=== PATIENT | female | born 1960 | race Caucasian/White ===

== ENCOUNTER → 2018-07-21 08:59 | Outpatient (CLI) | payer OTHER, SELFPAY ==
--- NOTE | 2018-07-21 | DI.MG.S_ITS ---
BILATERAL DIGITAL SCREENING MAMMOGRAM 3D/2D WITH CAD: 07/21/2018 CLINICAL: Routine screening. Comparison is made to exams dated: 07/03/2017 mammogram, 06/21/2016 mammogram, and 01/30/2015 mammogram - [facility]. The tissue of both breasts is heterogeneously dense. This may lower the sensitivity of mammography. Current study was also evaluated with a Computer Aided Detection (CAD) system. No significant masses, calcifications, or other findings are seen in either breast. There has been no significant interval change. IMPRESSION: NEGATIVE There is no mammographic evidence of malignancy. A 1 year screening mammogram is recommended. This exam was interpreted at Station ID: [id number]. NOTE: For mammograms, a report in lay terms will be sent to the patient. Approximately 15% of breast malignancies will not be visualized mammographically. In the management of a palpable breast mass, a negative mammogram must not discourage biopsy of a clinically suspicious lesion. Electronically Signed By: Ronak leon/micah:07/21/2018 10:00:33 letter sent: Normal Exam ACR BI-RADS Category 1: Negative 3341F
== END ==
PROVIDERS: PCP Family Medicine; Visit Provider Family Medicine
DX: Z12.31 Encounter for screening mammogram for malignant neoplasm of breast (principal)
CPT/HCPCS: 77063; 77067

== ENCOUNTER → 2018-12-09 10:19 | Outpatient (CLI) | payer OTHER, SELFPAY | PROVIDERS: PCP Family Medicine; Visit Provider Surgery | DX: R19.7 Diarrhea, unspecified (principal); Z87.19 Personal history of other diseases of the digestive system ==

== ENCOUNTER → 2018-12-10 14:06 | Outpatient (CLI) | payer OTHER, SELFPAY ==
[2018-12-10 14:42] LABS: Add Manual Diff / Slide Review NO; Basophils Absolute Auto 100 /uL (0-100); Basophils Percent Auto 0.9 % (0-2); Eosinophils Absolute Auto 100 /uL (0-450); Eosinophils Percent Auto 1.2 % (2-4); Hematocrit 32.9 % (36-46); Hemoglobin 10.5 g/dL (12.0-16.0); Lymphocytes Absolute Auto 3300 /uL (1100-4500); Lymphocytes Percent Auto 41.4 % (25-40); Mean Corpuscular HGB Conc 31.8 % (30-36); Mean Corpuscular Hemoglobin 26.9 PG (26-34); Mean Corpuscular Volume 84.6 fL (80-100); Monocytes Absolute Auto 1000 /uL (0-900); Neutrophils Absolute Auto 3600 /uL (1500-7000); Neutrophils Percent Auto 44.5 % (50-75); Platelet Count 203 X10^3/uL (150-400); Red Blood Cell Count 3.89 X10^6/uL (4.0-5.2); Red Cell Distribution Width 17.2 % (11.6-14.8)
[2018-12-10 15:47] LABS: BUN Creatinine Ratio 15.6 (6-22); Blood Urea Nitrogen 14 mg/dL (7-17); Calcium 8.4 mg/dL (8.4-10.2); Carbon Dioxide 29 mmol/L (22-32); Chloride 97 mmol/L (98-107); Estimated Glomerular Filt Rate > 60.0 mL/min (>60); Glucose 98 mg/dL (80-110); HEMOLYSIS < 15 (0-50); Potassium 3.3 mmol/L (3.4-5.1); Sodium 137 mmol/L (137-145)
== END ==
PROVIDERS: PCP Family Medicine; Visit Provider Surgery
DX: Z87.19 Personal history of other diseases of the digestive system (principal); R19.7 Diarrhea, unspecified
CPT/HCPCS: 36415; 80048; 85025

== ENCOUNTER → 2018-12-11 14:20 | Outpatient (CLI) | payer OTHER, SELFPAY | PROVIDERS: PCP Family Medicine; Visit Provider Surgery | DX: Z87.19 Personal history of other diseases of the digestive system (principal) | CPT/HCPCS: 86677 ==

== ENCOUNTER → 2018-12-14 08:10 | Outpatient (CLI) | payer OTHER, SELFPAY ==
--- NOTE | 2018-12-14 09:05 | DI.CT.S_ITS ---
PROCEDURE: CT ABDOMEN PELVIS WO CON INDICATIONS: diarrhea/ melena TECHNIQUE: Noncontrast 5 mm thick sections acquired from the diaphragms to the symphysis. 5 mm coronal and sagittal reformats were then performed. For radiation dose reduction, the following was used: automated exposure control, adjustment of mA and/or kV according to patient size. COMPARISON: [facility], , CHEST 1 VIEW, 01/23/2016, 9:01. FINDINGS: Image quality: Excellent. ABDOMEN: Lung bases: Lung bases are clear except for what appears to be bibasilar atelectasis or scarring, without pneumonia by appearance. Heart size is normal. Solid organs: Liver is normal in size. Gallbladder has been previously resected. Pancreas is normal in contours. Spleen is normal in size. No adrenal nodules. Kidneys are chronically asymmetric in size, diminutive on the right and with compensatory hypertrophy on the left, without hydronephrosis or nephrolithiasis. Peritoneum and bowel: Unenhanced bowel loops demonstrate normal wall thickness and caliber. No free fluid or air. Nodes and vessels: No retroperitoneal or mesenteric adenopathy by size criteria. Aorta and inferior vena cava are normal in caliber. Miscellaneous: No ventral hernias. PELVIS: Genitourinary: Bladder wall thickness is normal. Miscellaneous: No inguinal hernias or adenopathy. Normal appendix found. The colon wall appears mildly thickened at the sigmoid bowel, without evidence of mass or diverticulitis (somewhat limited evaluation due to absence of intravenous contrast). Bones: No suspicious bony lesions. No vertebral body compression fractures. IMPRESSION: The quality of visualization is somewhat limited by the absence of intravenous contrast. There is mild thickening of the sigmoid colon wall and rectum the wall, consistent with mild colitis. Diverticulitis or colonic malignant mass is not found. A normal appendix is identified. No free fluid/abscess is seen throughout the peritoneal space. Lung volumes are large on prior chest plain film imaging and there is linear atelectasis and/or scarring at each lung base better seen on the right than the left. The lung base pneumonia is not suspected. Dictated by: Pierce Rodriguez M.D. on 12/14/2018 at 11:25 Approved by: Pierce Rodriguez M.D. on 12/14/2018 at 11:29
== END ==
PROVIDERS: PCP Family Medicine; Visit Provider Surgery
DX: R19.7 Diarrhea, unspecified (principal); K92.1 Melena
CPT/HCPCS: 74176

== ENCOUNTER → 2018-12-19 14:30 | Outpatient (CLI) | payer OTHER, SELFPAY ==
--- NOTE | 2018-12-19 14:36 | DI.RAD.S_ITS ---
PROCEDURE: XR CHEST 2V INDICATIONS: COPD, shortness of breath TECHNIQUE: 2 views of the chest were acquired. COMPARISON: 01/23/2016. FINDINGS: Surgical changes and devices: There are postsurgical changes from previous anterior cervical fusion. Lungs and pleura: Stable appearance of moderate to severe pulmonary emphysematous changes which is most pronounced in the right upper lung zone. Mild diffuse interstitial prominence as before. No focal consolidation or pneumothorax. There is hyperaeration and flattening of hemidiaphragms with increased retrosternal clear space. Findings are again compatible with sequela of chronic obstructive pulmonary physiology. There is no pleural effusion. Mediastinum: Cardiomediastinal contours are normal. Heart size is normal. Bones and chest wall: No suspicious bony abnormalities. No acute compression fractures of the visualized thoracic spine. Surgical clips are again noted in the upper abdomen. Soft tissues appear unremarkable. IMPRESSION: Stable radiographic evaluation of the chest with sequela of moderate-severe chronic obstructive pulmonary physiology/COPD. No focal airspace disease. Dictated by: Kee Schultz M.D. on 12/19/2018 at 23:06 Approved by: Kee Schultz M.D. on 12/19/2018 at 23:10
== END ==
PROVIDERS: PCP Family Medicine; Visit Provider Surgery
DX: J44.1 Chronic obstructive pulmonary disease with (acute) exacerbation (principal)
CPT/HCPCS: 71046

== ENCOUNTER → 2018-12-26 12:43 | Outpatient (CLI) | payer OTHER, SELFPAY ==
[2018-12-26 15:10] LABS: Clostridium Difficile Tox PCR Negative for C. diff
== END ==
PROVIDERS: Visit Provider Internal Medicine Gastroenterology
DX: R63.4 Abnormal weight loss (principal); R19.7 Diarrhea, unspecified
CPT/HCPCS: 82710; 86317; 87177; 87205; 87493

== ENCOUNTER → 2019-07-22 09:47 | Outpatient (CLI) | payer OTHER, SELFPAY ==
--- NOTE | 2019-07-22 | DI.MG.S_ITS ---
BILATERAL DIGITAL SCREENING MAMMOGRAM 3D/2D WITH CAD: 07/22/2019 CLINICAL: Routine screening. Comparison is made to exams dated: 07/21/2018 mammogram, 07/03/2017 mammogram, and 06/21/2016 mammogram - [facility]. The tissue of both breasts is extremely dense, which lowers the sensitivity of mammography. Current study was also evaluated with a Computer Aided Detection (CAD) system. There are benign vascular calcifications in both breasts. No significant masses, calcifications, or other findings are seen in either breast. There has been no significant interval change. IMPRESSION: There is no mammographic evidence of malignancy. A 1 year screening mammogram is recommended. This exam was interpreted at Station ID: [id number]. NOTE: For mammograms, a report in lay terms will be sent to the patient. Approximately 15% of breast malignancies will not be visualized mammographically. In the management of a palpable breast mass, a negative mammogram must not discourage biopsy of a clinically suspicious lesion. Electronically Signed By: Parveen nava/micah:07/23/2019 17:38:13 letter sent: Normal Exam ACR BI-RADS Category 2: Benign Finding(s) 3342F
== END ==
PROVIDERS: PCP Student in an Organized Health Care Education/Training Program; Visit Provider Student in an Organized Health Care Education/Training Program
DX: Z12.31 Encounter for screening mammogram for malignant neoplasm of breast (principal)
CPT/HCPCS: 77063; 77067

== ENCOUNTER → 2019-10-13 12:36 | Outpatient (CLI) | payer OTHER, SELFPAY ==
--- NOTE | 2019-10-13 | DI.RAD.S_ITS ---
PROCEDURE: XR CHEST 2V INDICATIONS: COPD, UNEXPLAINED WEIGHT LOSS,DYSPNEA TECHNIQUE: 2 views of the chest were acquired. COMPARISON: [facility], CR, XR CHEST 2V, 12/19/2018, 15:01. FINDINGS: Surgical changes and devices: Cervical spinal fixation hardware as before. Upper abdominal surgical clips. Lungs and pleura: Lungs are hyperinflated in keeping with chronic obstructive physiology. Presumed nipple shadow projecting over the right midlung, unchanged. Trace right pleural effusion. No pneumothorax. Upper lobe emphysema. No new focal consolidation Mediastinum: Mediastinal contours are normal. Heart size is normal. Bones and chest wall: No suspicious bony abnormalities. Soft tissues appear unremarkable. IMPRESSION: Small right pleural effusion versus atelectasis/scarring. No definite new focal consolidation Hyperinflated lungs in keeping with chronic obstructive physiology. Severe upper lobe emphysema. Dictated by: Berny Ortiz M.D. on 10/13/2019 at 14:35 Approved by: Berny Ortiz M.D. on 10/13/2019 at 14:37
== END ==
PROVIDERS: PCP Student in an Organized Health Care Education/Training Program; Visit Provider Student in an Organized Health Care Education/Training Program
DX: J43.9 Emphysema, unspecified (principal); R63.4 Abnormal weight loss; R06.00 Dyspnea, unspecified
CPT/HCPCS: 71046

== ENCOUNTER → 2019-10-15 10:56 | Outpatient (CLI) | payer OTHER, SELFPAY ==
[2019-10-15 12:16] LABS: Fractionated Inspired Oxygen 36; HCO3 ABG 34 mmol/L (22-26); Oxygen Saturation ABG 93 % (95-100); PCO2 ABG 49.2 mmHg (35-45); PO2 ABG 66 mmHg (80-100); TCO2 ABG 35 mmol/L (21-31); pH ABG 7.45 (7.35-7.45)
== END ==
PROVIDERS: PCP Student in an Organized Health Care Education/Training Program; Visit Provider Student in an Organized Health Care Education/Training Program
DX: J44.9 Chronic obstructive pulmonary disease, unspecified (principal)
CPT/HCPCS: 36600; 82805

== ENCOUNTER → 2019-10-19 09:39 | Outpatient (CLI) | payer OTHER, SELFPAY ==
--- NOTE | 2019-10-19 | DI.CT.S_ITS ---
PROCEDURE: CT CHEST WO CON INDICATIONS: COPD,WEIGHT LOSS,DYSPNEA TECHNIQUE: Noncontrast 2.0-2.5 mm thick sections acquired from the pulmonary apices to the posterior costophrenic angles. 7 mm thick axial MIP, and 5 mm coronal and sagittal reformats were then acquired. A low radiation dose technique was utilized. COMPARISON: [facility], CR, XR CHEST 2V, 10/13/2019, 12:44. [facility], CR, XR CHEST 2V, 12/19/2018, 15:01. [facility], CT, PE STUDY (CTA CHEST), 01/19/2016, 11:55. FINDINGS: Image quality: Diagnostic, given the low radiation dose technique. Lungs and pleura: There is severe COPD, with superimposed bullous and centrilobular emphysema. Mediastinum: Heart size is normal. No pericardial effusion. No mediastinal adenopathy by size criteria. Thoracic aorta and central pulmonary arteries are normal in size. Esophagus is normal in caliber. No hiatal hernia. Bones and chest wall: No suspicious bony lesions. No vertebral body compression fractures. No axillary or supraclavicular adenopathy by size criteria. Thyroid gland is not well-seen but is noncontrast technique. Abdomen: Visualized upper abdomen solid organs and bowel loops appear normal in the absence of contrast. IMPRESSION: Severe COPD, no evidence of early manifestation of lung carcinoma. LUNG-RADS category 1; followup low dose noncontrast CT of the chest and screen for lung carcinoma is recommended in 1 year. Dictated by: Pierce Rodriguez M.D. on 10/19/2019 at 15:20 Approved by: Pierce Rodriguez M.D. on 10/19/2019 at 15:22
== END ==
PROVIDERS: PCP Student in an Organized Health Care Education/Training Program; Visit Provider Student in an Organized Health Care Education/Training Program
DX: J44.9 Chronic obstructive pulmonary disease, unspecified (principal); R63.4 Abnormal weight loss; R06.00 Dyspnea, unspecified
CPT/HCPCS: 71250; Q9967

== ENCOUNTER → 2019-10-22 09:10 | Outpatient (CLI) | payer OTHER, SELFPAY ==
--- NOTE | 2019-10-22 | DI.ECHO.S_ITS ---
[place] [facility] +---------+ : : [address] : : : : [id number] : : : : Phone: [phone]+ Echocardiogram Report + + :Name: ALEKSANDR CACERES Study Date: 10/22/2019 Height: 63 in : :[facility] Exam Location: [facility] Weight: 80 lb : : Gender: Female BSA: 1.3 m2 : :: 1960 Age: 59 yrs BP: 138/90 mmHg: :Reason For Study: Dizziness : : Performed By: Akilah Quezada : :Referring: NIGEL AKINS : + + Interpretation Summary Normal left ventricle size with ejection fraction 50%. There is a mild dyssynchronous contraction pattern, consistent with a conduction abnormality. Normal right ventricle and both atria. No valvular abnormality. Procedure: A two-dimensional transthoracic echocardiogram with color flow and Doppler was performed. The study quality was technically adequate. Comparison is made with the echocardiogram of 01/22/2016. The patient was in a tachycardic rhythm during the exam. Left Ventricle: The left ventricle is normal in size. Left ventricular wall thickness is normal. Left ventricular ejection fraction is estimated to be 50%. There is a mild dyssynchronous contraction pattern, consistent with a conduction abnormality. There are no other obvious focal wall motion abnormalities. Diastolic function could not be accurately assessed due to tachycardia. Right Ventricle: The right ventricle is normal in size and function. Atria: Both atria are normal in size. The interatrial septum is intact with no evidence for an atrial septal defect. Mitral Valve: The mitral valve leaflets appear mildly thickened, but open well. There is trace mitral regurgitation. Aortic Valve: The aortic valve is trileaflet. The aortic valve opens well. No aortic regurgitation is present. Tricuspid Valve: The tricuspid valve is normal in structure and function. There is mild tricuspid regurgitation. The right ventricular systolic pressure is estimated to be at least 27 mmHg based on an estimated right atrial pressure of 3 mm Hg. Pulmonic Valve: The pulmonic valve is not well seen, but is grossly normal. There is a trace or physiologic amount of pulmonic regurgitation. Great Vessels: The aortic root is normal size. The ascending aorta could not be visualized. The IVC is of normal diameter and collapses greater than 50% with a sniff. This suggests a low right atrial pressure of 3 mm Hg. Pericardium/ Pleura There is no pericardial effusion. There is no pleural effusion. MMode/2D Measurements & Calculations LVIDd: 4.4 cm LVOT diam: 2.2 cm LVIDs: 2.9 cm Ao root diam: 2.9 cm FS: 34.1 % IVSd: 0.86 cm LVPWd: 0.73 cm LV orellana. diameter/BSA (cm/m^2): 3.4 LV sys. diameter/BSA (cm/m^2): 2.2 LA A2 area: 14.9 cm2 RA long axis: 3.2 cm LA A4 area: 10.6 cm2 RA area: 9.5 cm2 LA length (vol): 3.9 cm RA vol: 23.9 ml LA vol: 34.4 ml RA : 18.2 ml/m2 LA vol index: 26.2 ml/m2 IVC diam: 1.3 cm RVD1 (basal): 2.9 cm TAPSE: 1.7 cm Doppler Measurements & Calculations Ao V2 max: 100.6 cm/sec LVOT Max David: 68.9 cm/sec Ao V2 mean: 71.6 cm/sec LV V1 max P.9 mmHg Ao max P.1 mmHg LV V1 VTI: 10.4 cm Ao mean P.2 mmHg SHIN(I,D): 2.6 cm2 Ao V2 VTI: 15.6 cm SHIN(V,D): 2.6 cm2 sev ratio: 0.67 SHIN indexed to BSA (cm^2/m^2): 1.9 TR max david: 245.8 cm/sec SV(LVOT): 39.8 ml TR max P.2 mmHg PA V2 max: 57.1 cm/sec PA V2 mean: 36.7 cm/sec PA mean P.61 mmHg PA pr(Accel): 34.1 mmHg Electronically signed by: Jose Jacob on Reading Physician:10/22/2019 04:34 PM
== END ==
PROVIDERS: Family Provider Internal Medicine Cardiovascular Disease; PCP Student in an Organized Health Care Education/Training Program; Visit Provider Student in an Organized Health Care Education/Training Program
DX: I07.1 Rheumatic tricuspid insufficiency (principal); R42 Dizziness and giddiness; E87.6 Hypokalemia
CPT/HCPCS: 93306

== ENCOUNTER → 2019-11-08 15:33 | Outpatient (CLI) | payer OTHER, SELFPAY ==
--- NOTE | 2019-11-08 | DI.RAD.S_ITS ---
PROCEDURE: XR CERVICAL SPINE 4V OR 5V INDICATIONS: cervicalgia TECHNIQUE: 5 views of the cervical spine acquired. COMPARISON: [facility], , CERVICAL SPINE 2 OR 3 VIEWS, 01/29/2013, 8:55. FINDINGS: Bones: No fractures or dislocations to the T1 level. Oblique images demonstrate no bony foraminal stenoses. Prior anterior fusion plating with transverse vertebral body screws involving C5 and C7, as was previously the case. There has been mild interval worsening of C4-5 and C3-4 degenerative disc disease with reference to the prior comparison plain films from 01/29/13. No device loosening or disruption is found. Mild interval worsening of foraminal stenosis symmetric bilaterally at C3-4 and C4-C5. Soft tissues: No prevertebral soft tissue swelling. IMPRESSION: Previously present anterior fusion devices across from C5-C7, and along the adjacent superior vertebral disc spaces at C4-C5 and C3-C4 progression of degenerative disc disease has occurred with reference to the prior study from 2012. No trauma found. No evidence of device loosening or disruption. Foraminal stenosis at those 2 levels also appears to have mildly worsened. Dictated by: Pierce Rodriguez M.D. on 11/08/2019 at 16:14 Approved by: Pierce Rodriguez M.D. on 11/08/2019 at 16:18
--- NOTE | 2019-11-08 | DI.RAD.S_ITS ---
PROCEDURE: XR LUMBAR SPINE 6V W BENDING INDICATIONS: back pain TECHNIQUE: 7 views of the lumbar spine acquired. COMPARISON: [facility], , L-SPINE 2-3 VIEWS, 09/28/2010, 12:56. FINDINGS: Bones: 5 nonrib-bearing vertebrae are present. There is normal bony alignment maintained during flexion and extension imaging but quality of visualization of the lumbosacral spine is somewhat limited by relatively prominent overlying bowel gas on the all images obtained. Note is made of a mild degree of interval worsening of degenerative disc disease from L3-S1 from the comparison study 09/28/10. This has been moderately severe to severe at L5-S1 with a similar degree of facet osteoarthritis better seen on the prior study due to the current overlying bowel gas.. No vertebral body compression fractures. No suspicious bony lesions. Soft tissues: Overlying bowel gas pattern is normal. No suspicious soft tissue calcifications. Flexion/extension: There is normal range of motion, with preserved normal alignment. IMPRESSION: Quality visualization has been diminished by the current circumstance of prominent overlying bowel gas which reduces the quality of visualization of fine details along the lumbosacral spine. There has been a definite interval worsening in the degenerative changes from L3 inferiorly, most pronounced at L4-5 and to a slightly lesser degree L5-S1. Subluxation is not associated. There likely is significant spinal and foraminal stenosis now at L4-5 and L5-S1. No intervening compression fracture is found. Dictated by: Pierce Rodriguez M.D. on 11/08/2019 at 16:18 Approved by: Pierce Rodriguez M.D. on 11/08/2019 at 16:21
== END ==
PROVIDERS: Family Provider Internal Medicine Cardiovascular Disease; PCP Student in an Organized Health Care Education/Training Program; Visit Provider Pain Medicine Pain Medicine
DX: M50.321 Other cervical disc degeneration at C4-C5 level (principal); M48.02 Spinal stenosis, cervical region; M54.9 Dorsalgia, unspecified; M51.36 Other intervertebral disc degeneration, lumbar region; M51.37 Other intervertebral disc degeneration, lumbosacral region; M47.817 Spondylosis without myelopathy or radiculopathy, lumbosacral region; Z98.1 Arthrodesis status
CPT/HCPCS: 72050; 72114

== ENCOUNTER → 2019-11-23 13:21 | Outpatient (CLI) | payer OTHER, SELFPAY ==
--- NOTE | 2019-11-23 13:33 | DI.CT.S_ITS ---
PROCEDURE: CT ABDOMEN PELVIS W CON INDICATIONS: UNEXPLAINED WEIGHT LOSS TECHNIQUE: After the administration of oral and intravenous contrast, 5 mm thick sections acquired from the diaphragms to the symphysis. 5 mm thick coronal and sagittal reformats were performed. For radiation dose reduction, the following was used: automated exposure control, adjustment of mA and/or kV according to patient size. COMPARISON: [facility], CT, ABDOMEN/PELVIS WITH CONTRAST, 02/24/2013, 10:08. [facility], CT, CT CHEST WO CON, 10/19/2019, 9:40. [facility], CT, CT ABDOMEN PELVIS WO [facility], 12/14/2018, 8:53. FINDINGS: Image quality: Excellent. ABDOMEN: Lung bases: Right basilar atelectasis. Heart size is normal. Solid organs: Liver is normal in size and enhancement. Gallbladder is surgically absent . Biliary system is non-dilated. Pancreas enhances normally. Spleen is normal in size and enhancement. No adrenal nodules. The right kidney is atrophic with cystic changes. There is compensatory hypertrophy of the left kidney. Norenal stone or hydronephrosis. Peritoneum and bowel: Stomach is distended. The small bowel and colon loops are normal in caliber and wall thickness. There is mild thickening of the rectum. No free fluid or air. Nodes and vessels: No retroperitoneal or mesenteric adenopathy. Aorta and inferior vena cava are normal in caliber. Extensive atherosclerosis. Moderate to severe aortic stenosis in the mid abdominal aorta Miscellaneous: No ventral hernias. PELVIS: Genitourinary: Bladder wall thickness is normal. Miscellaneous: No inguinal hernias or adenopathy. Bones: No suspicious bony lesions. No vertebral body compression fractures. IMPRESSION: 1. Thickening of the rectum. Although the finding could be due to artifact from peristalsis, endoscopic examination is suggested to rule out mass. 2. Atrophic right kidney and compensatory hypertrophy of the left kidney. 3. Right basilar atelectasis. 4. Cholecystectomy. 5. Severe atherosclerosis with moderate to severe aortic stenosis. Dictated by: Princess Marquez M.D. on 11/23/2019 at 16:54 Approved by: Princess Marquez M.D. on 11/23/2019 at 18:18
[2019-11-23 14:09] LABS: BUN Creatinine Ratio 24.4 (6-22); Blood Urea Nitrogen 22 mg/dL (7-17); Calcium 9.2 mg/dL (8.4-10.2); Carbon Dioxide 36 mmol/L (22-32); Chloride 93 mmol/L (98-107); Estimated Glomerular Filt Rate > 60.0 mL/min (>60); Glucose 96 mg/dL (80-110); HEMOLYSIS < 15 (0-50); Potassium 3.8 mmol/L (3.4-5.1); Sodium 139 mmol/L (137-145)
== END ==
PROVIDERS: Family Provider Internal Medicine Cardiovascular Disease; PCP Student in an Organized Health Care Education/Training Program; Visit Provider Student in an Organized Health Care Education/Training Program
DX: R63.4 Abnormal weight loss (principal); K62.9 Disease of anus and rectum, unspecified; N26.1 Atrophy of kidney (terminal); J98.11 Atelectasis; I35.0 Nonrheumatic aortic (valve) stenosis; I70.0 Atherosclerosis of aorta; Z90.49 Acquired absence of other specified parts of digestive tract
CPT/HCPCS: 36415; 74177; 80048; Q9967

== ENCOUNTER 2019-12-29 11:42 | Day surgery (SDC) | payer OTHER, SELFPAY ==
--- NOTE | 2019-12-29 | PATH_ITS ---
[facility] Accession Number: [id number] . 01 Material submitted: . rectum - RECTAL POLYP X2 . 02 Diagnosis: Rectum, Polyps x2, Biopsies: Tubular adenoma. Hyperplastic polyp. [facility] 12/30/2019 1518 Local . 02 Electronically signed: . Tammy Chakraborty MD, Pathologist NPI- [id number] . 01 Gross description: . RECTAL POLYP X2: Received in formalin are 2 fragment(s) of hamilton, soft tissue measuring 0.1 x 0.1 x 0.1 cm to 0.3 x 0.3 x 0.2 cm submitted entirely in 1 cassette(s) /[facility] [place] 12/29/2019 2238 Local . 02 Pathologist provided ICD-10: D12.8 . 02 CPT . 556036 Performed at: 01 [facility] [address] [id number] MD Trev Noel MD Phone: [phone] Performed at: [address] [facility] [address] [place], [place] [id number] MD Tammy Chakraborty MD Phone: [phone]
[2019-12-29 11:55] VITALS: BP 154/101; PULSE 105; RESP 16; TEMP 36.8; O2SAT 98; BMI 14.6
[2019-12-29] MEDS: SODIUM CHLORIDE 0.9% 1,000 ML 84 ML IV (12:19)
--- NOTE | 2019-12-29 13:04 | PM.PREOP ---
Pre-operative Note Interval Note History & Physical reviewed/Exam performed by Physician: Yes Changes to H&P: No ASA Class (for procedural sedation): III
[2019-12-29] MEDS: MIDAZOLAM 5 MG/5 ML VIAL IV (13:17)
[2019-12-29] MEDS: fentaNYL 250 MCG/5 ML INJ IV (13:18)
--- NOTE | 2019-12-29 13:24 | PM.OP.ENDO ---
Operative Date/Time/Diagnoses Date of procedure: 12/29/19 Procedure & Clinicians Study performed: Flexible sigmoidoscopy Moderate conscious sedation was administered by the endoscopy nurse and supervised by the endoscopist. The following parameters were monitored: Oxygen saturation, heart rate, blood pressure, and response to care. Sedation total: 3 mg midazolam, 100 mcg fentanyl Indications: Rectal wall thickening seen on CT scan Procedure Notes Procedure in detail: Prior to the procedure, history and physical was performed, and patient medications and allergies were reviewed. Preprocedure nursing history and assessment was reviewed. Patient identification and proposed procedure were verified by the physician and nurse in the procedure room. The physical status of the patient was reassessed after the procedure. After informed consent was obtained including risks, benefits, and alternatives, the scope was passed under direct vision. Throughout the procedure, the patient's blood pressure, pulse, and oxygen saturations were monitored continuously. The upper endoscope was introduced through the anus and advanced to the sigmoid colon. The patient tolerated the procedure well. Bowel prep was deemed adequate to detect polyps greater than 5 mm. Digital rectal examination and perianal examination were unremarkable. Retroflexion in the rectum was unrevealing. A 4 mm and a 3 mm sessile polyp were removed from the rectum using a cold snare. These were retrieved The rectum and rectosigmoid colon were normal appearing Impression: No endoscopic findings to explain wall thickening seen on CT Two 3-4 mm polyps removed from the rectum Sedation minutes: 10 Complications: other (EBL minimal. No complications) Post-procedure Plan for aftercare: Follow-up pathology results Repeat colonoscopy to date to be determined based on pathology results Resume home medications Presumed previous diet Follow-up in GI clinic as previously recommended Discharge home with escort
[2019-12-29 13:29] VITALS: BP 170/100; PULSE 97; RESP 14; TEMP 37.2; O2SAT 95
[2019-12-29 13:35] VITALS: BP 163/90; PULSE 97; RESP 15; O2SAT 88
[2019-12-29 13:36] VITALS: O2SAT 92
--- NOTE | 2019-12-29 13:48 | SUR.PHASEI ---
pt voided via bedpan, no difficulty. per pt request, depends put on.
[2019-12-29 14:05] VITALS: BP 173/97; PULSE 79; RESP 16; TEMP 37.6; O2SAT 97
== END 2019-12-29 14:15 | disposition home or self-care (01) ==
PROVIDERS: Family Provider Internal Medicine Cardiovascular Disease; PCP Student in an Organized Health Care Education/Training Program; Referring Provider Student in an Organized Health Care Education/Training Program; Visit Provider Internal Medicine
PROC: 0DJD8ZZ Inspection of Lower Intestinal Tract, Via Natural or Artificial Opening Endoscopic (ICD-10-PCS; CPT 45378; principal; 2019-12-29 12:30)
DX: R93.5 Abnormal findings on diagnostic imaging of other abdominal regions, including retroperitoneum (principal); D12.8 Benign neoplasm of rectum
CPT/HCPCS: 45338; J2250; J3010

== ENCOUNTER → 2020-01-17 09:19 | Outpatient (CLI) | payer OTHER, SELFPAY ==
[2020-01-17 10:56] LABS: Cholesterol 213 mg/dL (140-199); Triglycerides 60 mg/dL (35-150)
[2020-01-17 11:10] LABS: HDL Cholesterol 173 mg/dL (40-60); LDL Cholesterol Calculated 28 mg/dL (<100)
== END ==
PROVIDERS: Family Provider Internal Medicine Cardiovascular Disease; PCP Student in an Organized Health Care Education/Training Program; Referring Provider Internal Medicine Cardiovascular Disease; Visit Provider Internal Medicine Cardiovascular Disease
DX: E78.5 Hyperlipidemia, unspecified (principal)
CPT/HCPCS: 36415; 80061

== ENCOUNTER 2020-09-19 22:53 | Inpatient (IN) | payer OTHER, SELFPAY ==
[2020-09-19 23:00] VITALS: BP 160/90; PULSE 93; PULSE 94; RESP 10; RESP 14; TEMP 36.5; O2SAT 86; O2SAT 99
--- NOTE | 2020-09-19 23:04 | ED.SYNCOPE ---
HPI - Syncope General Chief Complaint: Altered Mental Status Stated Complaint: Altered mental status Time Seen by Provider: 09/19/20 22:57 Source: family and EMS Mode of arrival: EMS Limitations: altered mental status History of Present Illness HPI narrative: The patient has COPD, she is on home O2. She still smokes 4-5 cigarettes daily. She takes oxycodone 20 mg 5 times daily for chronic back pain. She has undergone multiple surgeries of her back. Her has arrived, he reports she was having a normal day. He heard a large thump, he found her down on the floor crawling around incoherent. She has a remote history of a seizure as a child. She was shaking, it is not clear if she had a seizure. He reports she has had no recent fever, no recent illness. She has never had an overdose issue with her medications in the past. She has had no recent illness. No seizure activity was witnessed. She was given Versed by EMS, she seemed to improve. She opens her eyes to voice, but is not responding otherwise upon arrival. Her breathing is shallow. Her medical records are reviewed. History of COPD is noted. She has a history of respiratory failure. Related Data Home Medications Medication Instructions Recorded Confirmed cyclobenzaprine 10 mg PO HSP #0 06/08/13 12/29/19 potassium chloride [Klor-Con M10] 30 meq PO QDAY #0 06/08/13 12/29/19 atorvastatin 10 mg PO BEDTIME 12/29/19 12/29/19 oxycodone See Rx Instructions .ROUTE .COMPLEX 12/29/19 12/29/19 temazepam 7.5 mg PO BEDTIME 12/29/19 12/29/19 venlafaxine 175 mg PO DAILY 12/29/19 12/29/19 Allergies Allergy/AdvReac Type Severity Reaction Status Date / Time No Known Drug Allergies Allergy Verified 09/19/20 23:15 Review of Systems Review of Systems ROS Unobtainable: Unobtainable due to medical condition Patient History Medical History Anxiety (Acute) Aortoiliac occlusive disease (Acute) COPD (chronic obstructive pulmonary disease) (Acute) Diarrhea (Acute) History of respiratory failure (Acute) Hypertension (Acute) Tobacco abuse (Acute) Surgical History History of aorto-femoral bypass (Acute) History of back surgery (Acute) History of carpal tunnel release (Acute) History of cataract removal with insertion of prosthetic lens (Acute) History of colonoscopy (Acute) History of hysterectomy (Acute) Family History Brother Cancer Family/Other Cancer Social History marital status: household members: spouse Smoking Status: Current every day smoker alcohol intake: current substance use type: does not use Smoking Status: Current every day smoker alcohol intake frequency: 0-2 drinks per day Substance Use Type: does not use Exam Initial Vital Signs Initial Vital Signs: Vital Signs Temperature 97.7 F 09/19/20 23:00 Pulse Rate 93 H 09/19/20 23:00 Respiratory Rate 10 L 09/19/20 23:00 Blood Pressure 160/90 H 09/19/20 23:00 Pulse Oximetry 99 09/19/20 23:00 Const Other: She pushes away in response to pain. She has no verbal response upon our arrival. Her breathing is shallow. HENNE Head: normocephalic and atraumatic Mouth: oral mucosae normal and other (No oral injury) Eyes Pupils: PERRL Neck Neck: supple and No tender Chest Other: No evidence of trauma Resp Other: Shallow, slow respirations. Very poor air flow. No rales, no wheezes. Cardio Rate: regular rate Rhythm: regular rhythm Heart Sounds: S1 normal, S2 normal, no click, no gallops, no murmurs and no rubs Pulses: normal peripheral pulses GI Inspection: non-distended Palpation: soft, no hepatosplenomegaly, No guarding, No pulsatile mass and No tender Auscultation: normal bowel sounds Back/Spine/Pelvis Other: No trauma or deformities. Skin General: no rashes or lesions noted Neuro Other: Altered as noted in HPI Extrem Other: Thin, frail. No calf edema. Normal peripheral pulses. Psych Other: She response to pain, no verbal response. Again, no seizure activity was actually witnessed. She did receive Versed. Course Course Course Narrative: The patient was in respiratory distress upon arrival, O2 sats had decreased to 82% on room air. She was breathing shallow. Oxygen was given. Initial pH was 7.26, pCO2 79, PO2 156. She was started on BiPAP. Prior to the eventual admission her pH had improved to 7.359, pCO2 61, PO2 63. She was treated for COPD exacerbation with albuterol, and Solu-Medrol. She has had no fever, the BC count is normal. Chest x-ray did not reveal pneumonia. He had, her initial lactic acid level is 2.5. She was acidotic due to the respiratory failure. IV fluids were given, Zosyn was given for possible sepsis. A repeat lactic acid has normalized. CTA chest was done due to an elevated D-dimer. There is no evidence of PE, or infiltrate. She has a subtle elevations a BMP, there is no clinical evidence of CHF. I discussed the case with the admitting physician, Dr. Decker. She be admitted to the ICU, with respiratory support. Treatment for the COPD will continue. AM labs and repeat BNP have been ordered. Orders Ordered: ED Orders 09/19/20 23:05 XR chest 1V Stat EKG-12 Lead Stat 09/19/20 23:07 CT head/brain wo con Stat 09/19/20 23:18 Complete Blood Count AUTO DIFF Stat Comprehensive Metabolic Panel Stat D Dimer Stat Lipase Stat NT-proBNP (BNP-Adult 18+) Stat Partial Thromboplastin Time Stat Procalcitonin Stat Prolactin Stat Prothrombin Time INR Stat Troponin & CK Cardiac Panel Stat 09/19/20 23:33 Arterial Blood Gas Stat 09/19/20 23:35 Lactate (Lactic Acid) Stat 09/19/20 23:36 COVID19 -ED/INPAT/OR/L&D Stat 09/19/20 23:55 BiPAP Ventilatory Support RT PROTOCOL 09/20/20 00:20 CT angio chest PE protocol Stat 09/20/20 01:00 UA Complete [Urinalysis and Microscopic] Stat tox [Urine Drug Screen, Rapid] Stat 09/20/20 01:24 Arterial Blood Gas Stat Albuterol (Ventolin) 2.5 mg INH [id number] PRN PRN Reason: Shortness Of Breath Sodium Chloride (Normal Saline 0.9%) 1,000 mls @ 150 mls/hr IV CONT LOLA Last Infusion: 09/20/20 02:51 Dose: 0 mls/hr Documented by: Infusion: 09/20/20 01:44 Dose: 150 mls/hr Documented by: Infusion: 09/20/20 00:43 Dose: 0 mls/hr Documented by: Admin: 09/19/20 23:19 Dose: 150 mls/hr Documented by: CUATE Sodium Chloride (Normal Saline 0.9%) 1,000 mls @ 1,000 mls/hr IV BOLUS PRN PRN Reason: Fluid replacement Last Infusion: 09/20/20 01:44 Dose: 0 mls/hr Documented by: Admin: 09/20/20 00:43 Dose: 1,000 mls/hr Documented by: DEBORAH Sodium Chloride (Normal Saline 0.9%) 1,000 mls @ 125 mls/hr IV CONT LOLA Last Admin: 09/20/20 02:50 Dose: 125 mls/hr Documented by: [facility] Discontinued Medications Albuterol (Ventolin Hfa (Vent/Covid R/O)) 1 puff INH NOW ONE Stop: 09/19/20 23:09 Last Admin: 09/20/20 00:17 Dose: Not Given Documented by: DEBORAH Piperacillin/Tazobactam/Dextrose (Zosyn) 3.375 gm in 50 mls @ 100 mls/hr IV NOW ONE Stop: 09/20/20 00:51 Last Infusion: 09/20/20 01:16 Dose: 0 mls/hr Documented by: Admin: 09/20/20 00:43 Dose: 100 mls/hr Documented by: DEBORAH Lorazepam (Ativan) 0.5 mg IV NOW ONE Stop: 09/20/20 01:31 Last Admin: 09/20/20 01:39 Dose: 0.5 mg Documented by: DEBORAH Methylprednisolone (Solu-Medrol 125 Mg Vial) 125 mg IV NOW ONE Stop: 09/19/20 23:09 Last Admin: 09/19/20 23:19 Dose: 125 mg Documented by: CUATE Vital Signs Vital signs: Vital Signs - 8 hr 09/19/20 23:00 09/19/20 23:30 09/19/20 23:47 Temperature 97.7 F Pulse Rate 94 H 91 H 91 H Respiratory Rate 14 14 14 Blood Pressure 160/90 H 150/85 H 176/97 H Pulse Oximetry 86 L 92 09/19/20 23:50 09/19/20 23:55 09/20/20 00:00 Temperature Pulse Rate 86 84 83 Respiratory Rate 28 H 25 H 27 H Blood Pressure 159/88 H Pulse Oximetry 93 91 91 09/20/20 00:05 09/20/20 00:10 09/20/20 00:15 Temperature Pulse Rate 82 86 90 Respiratory Rate 26 H 23 24 Blood Pressure Pulse Oximetry 91 89 L 89 L 09/20/20 00:20 09/20/20 00:25 09/20/20 00:39 Temperature Pulse Rate 85 84 92 H Respiratory Rate 32 H 33 H 22 Blood Pressure Pulse Oximetry 91 91 96 09/20/20 00:40 09/20/20 00:45 09/20/20 00:50 Temperature Pulse Rate 91 H 90 92 H Respiratory Rate 17 26 H 25 H Blood Pressure 195/98 H Pulse Oximetry 96 96 96 09/20/20 00:55 09/20/20 01:00 09/20/20 01:01 Temperature Pulse Rate 93 H 95 H 94 H Respiratory Rate 21 24 24 Blood Pressure 228/112 H Pulse Oximetry 95 95 93 09/20/20 01:05 09/20/20 01:10 09/20/20 01:14 Temperature Pulse Rate 92 H 90 88 Respiratory Rate 17 22 17 Blood Pressure 185/85 H Pulse Oximetry 98 99 99 09/20/20 01:15 09/20/20 01:20 09/20/20 01:25 Temperature Pulse Rate 89 90 96 H Respiratory Rate 19 19 25 H Blood Pressure Pulse Oximetry 98 98 96 09/20/20 01:30 09/20/20 01:35 09/20/20 01:40 Temperature Pulse Rate 101 H 100 H 101 H Respiratory Rate 22 20 17 Blood Pressure 173/108 H Pulse Oximetry 90 L 93 92 09/20/20 01:45 09/20/20 01:50 09/20/20 01:55 Temperature Pulse Rate 97 H 95 H 97 H Respiratory Rate 15 18 17 Blood Pressure Pulse Oximetry 93 92 90 L 09/20/20 02:00 Temperature Pulse Rate 97 H Respiratory Rate 18 Blood Pressure 196/98 H Pulse Oximetry 89 L MDM - Syncope Lab Data Result diagrams: 09/20/20 01:55 09/20/20 01:55 Labs: Lab Results 09/19/20 09/19/20 09/19/20 Range/Units 23:18 23:18 23:18 WBC 8.6 (4.5-11.0) X10^3/uL RBC 3.89 L (4.0-5.2) X10^6/uL Hgb 11.6 L (12.0-16.0) g/dL Hct 36.0 (36-46) % MCV 92.5 (80-100) fL MCH 29.8 (26-34) PG MCHC 32.2 (30-36) % RDW 13.8 (11.6-14.8) % Plt Count 246 (150-400) X10^3/uL Neut % (Auto) Not Reportable Lymph % (Auto) Not Reportable [place] % (Auto) Not Reportable Eos % (Auto) Not Reportable Baso % (Auto) Not Reportable Neut # (Auto) (0430-7021) /uL Lymph # (Auto) Not Reportable [place] # (Auto) Not Reportable Eos # (Auto) (0-450) /uL Baso # (Auto) Not Reportable Total Counted 100 Seg Neutrophils % 38.0 (38-70) % Band Neutrophils % 2.0 L (3-7) % Lymphocytes % (Manual) 37.0 (25-45) % Atypical Lymphs % 14.0 H ( - 0) % Monocytes % (Manual) 7.0 (2-11) % Eosinophils % (Manual) 1.0 L (2-4) % Basophils % (Manual) 1.0 (0-1) % Neutrophils # (Manual) 3440 (3620-4086) /uL RBC Morphology Normal morphology PT 9.1 L (10.1-12.7) SECONDS INR 0.8 L (0.9-1.3) APTT 26 L (26.4-36.2) SECONDS D-Dimer 506 H (<230) ng/mL ABG pH (7.35-7.45) ABG pCO2 (35-45) mmHg ABG pO2 (80-100) mmHg ABG HCO3 (22-26) mmol/L ABG Total CO2 (21-31) mmol/L ABG O2 Saturation (95-100) % ABG Base Excess (-2-2) mmol/L FiO2 Sodium 135 L (137-145) mmol/L Potassium 4.6 (3.4-5.1) mmol/L Chloride 94 L (98-107) mmol/L Carbon Dioxide 32 (22-32) mmol/L BUN 21 H (7-17) mg/dL Creatinine 0.91 (0.52-1.04) mg/dL Estimated GFR > 60.0 (>60) mL/min BUN/Creatinine Ratio 23.1 H (6-22) Glucose 134 H (80-110) mg/dL Lactate (0.7-2.1) mmol/L Calcium 9.2 (8.4-10.2) mg/dL Total Bilirubin 0.4 (0.2-1.3) mg/dL AST 45 H (14-36) IU/L ALT 28 (<35) IU/L Alkaline Phosphatase 125 (38-126) U/L Total Creatine Kinase 72 (30-135) U/L CK-MB (CK-2) TNP CK-MB (CK-2) Rel Index TNP Troponin I < 0.012 (0.01-0.034) ng/mL NT-Pro-B Natriuret Pep 365 H (<125) pg/mL Total Protein 7.8 (6.3-8.2) g/dL Albumin 4.3 (3.5-5.0) g/dL Globulin 3.5 (1.7-4.1) g/dL Albumin/Globulin Ratio 1.2 (1.0-2.8) Lipase 25 (23-300) U/L Procalcitonin (<0.5) ng/mL Prolactin (3.0-18.6) ng/mL Urine Color Urine Appearance Urine pH (4.5-8.0) Ur Specific [place] (1.000-1.035) Urine Protein (Negative) Urine Glucose (UA) (Negative) g/dL Urine Ketones (NEGATIVE) Urine Occult Blood (Negative) Urine Nitrate (Negative) Urine Bilirubin (NEGATIVE) Urine Urobilinogen (0.2) E.U./dL Ur Leukocyte Esterase (NEGATIVE) Urine RBC (0-5/HPF) Urine WBC (0-5/HPF) Urine Bacteria (None) Ur Culture Indicated? U Opiates 300ng/mL cut (Negative) Ur Oxycodone Screen (Negative) Urine Methadone Screen (Negative) Ur Barbiturates Screen (Negative) U Tricyclic Antidepress (Negative) Ur Phencyclidine Scrn (Negative) Ur Amphetamines Screen (Negative) U Methamphetamines Scrn (Negative) Ur MDMA Scrn (Ecstasy) (Negative) U Benzodiazepines Scrn (Negative) Urine Cocaine Screen (Negative) U Marijuana (THC) Screen (Negative) COVID-19 PCR (Negative) 09/19/20 09/19/20 09/19/20 Range/Units 23:18 23:18 23:33 WBC (4.5-11.0) X10^3/uL RBC (4.0-5.2) X10^6/uL Hgb (12.0-16.0) g/dL Hct (36-46) % MCV (80-100) fL MCH (26-34) PG MCHC (30-36) % RDW (11.6-14.8) % Plt Count (150-400) X10^3/uL Neut % (Auto) Lymph % (Auto) [place] % (Auto) Eos % (Auto) Baso % (Auto) Neut # (Auto) (8586-2318) /uL Lymph # (Auto) [place] # (Auto) Eos # (Auto) (0-450) /uL Baso # (Auto) Total Counted Seg Neutrophils % (38-70) % Band Neutrophils % (3-7) % Lymphocytes % (Manual) (25-45) % Atypical Lymphs % ( - 0) % Monocytes % (Manual) (2-11) % Eosinophils % (Manual) (2-4) % Basophils % (Manual) (0-1) % Neutrophils # (Manual) (8035-3071) /uL RBC Morphology PT (10.1-12.7) SECONDS INR (0.9-1.3) APTT (26.4-36.2) SECONDS D-Dimer (<230) ng/mL ABG pH 7.27 L* (7.35-7.45) ABG pCO2 79.2 H* (35-45) mmHg ABG pO2 156 H (80-100) mmHg ABG HCO3 36 H (22-26) mmol/L ABG Total CO2 39 H (21-31) mmol/L ABG O2 Saturation 99 (95-100) % ABG Base Excess 9.0 H (-2-2) mmol/L FiO2 36 Sodium (137-145) mmol/L Potassium (3.4-5.1) mmol/L Chloride (98-107) mmol/L Carbon Dioxide (22-32) mmol/L BUN (7-17) mg/dL Creatinine (0.52-1.04) mg/dL Estimated GFR (>60) mL/min BUN/Creatinine Ratio (6-22) Glucose (80-110) mg/dL Lactate (0.7-2.1) mmol/L Calcium (8.4-10.2) mg/dL Total Bilirubin (0.2-1.3) mg/dL AST (14-36) IU/L ALT (<35) IU/L Alkaline Phosphatase (38-126) U/L Total Creatine Kinase (30-135) U/L CK-MB (CK-2) CK-MB (CK-2) Rel Index Troponin I (0.01-0.034) ng/mL NT-Pro-B Natriuret Pep (<125) pg/mL Total Protein (6.3-8.2) g/dL Albumin (3.5-5.0) g/dL Globulin (1.7-4.1) g/dL Albumin/Globulin Ratio (1.0-2.8) Lipase (23-300) U/L Procalcitonin < 0.05 (<0.5) ng/mL Prolactin 21.3 H (3.0-18.6) ng/mL Urine Color Urine Appearance Urine pH (4.5-8.0) Ur Specific [place] (1.000-1.035) Urine Protein (Negative) Urine Glucose (UA) (Negative) g/dL Urine Ketones (NEGATIVE) Urine Occult Blood (Negative) Urine Nitrate (Negative) Urine Bilirubin (NEGATIVE) Urine Urobilinogen (0.2) E.U./dL Ur Leukocyte Esterase (NEGATIVE) Urine RBC (0-5/HPF) Urine WBC (0-5/HPF) Urine Bacteria (None) Ur Culture Indicated? U Opiates 300ng/mL cut (Negative) Ur Oxycodone Screen (Negative) Urine Methadone Screen (Negative) Ur Barbiturates Screen (Negative) U Tricyclic Antidepress (Negative) Ur Phencyclidine Scrn (Negative) Ur Amphetamines Screen (Negative) U Methamphetamines Scrn (Negative) Ur MDMA Scrn (Ecstasy) (Negative) U Benzodiazepines Scrn (Negative) Urine Cocaine Screen (Negative) U Marijuana (THC) Screen (Negative) COVID-19 PCR (Negative) 09/19/20 09/19/20 09/20/20 Range/Units 23:35 23:36 01:00 WBC (4.5-11.0) X10^3/uL RBC (4.0-5.2) X10^6/uL Hgb (12.0-16.0) g/dL Hct (36-46) % MCV (80-100) fL MCH (26-34) PG MCHC (30-36) % RDW (11.6-14.8) % Plt Count (150-400) X10^3/uL Neut % (Auto) Lymph % (Auto) [place] % (Auto) Eos % (Auto) Baso % (Auto) Neut # (Auto) (9289-0994) /uL Lymph # (Auto) [place] # (Auto) Eos # (Auto) (0-450) /uL Baso # (Auto) Total Counted Seg Neutrophils % (38-70) % Band Neutrophils % (3-7) % Lymphocytes % (Manual) (25-45) % Atypical Lymphs % ( - 0) % Monocytes % (Manual) (2-11) % Eosinophils % (Manual) (2-4) % Basophils % (Manual) (0-1) % Neutrophils # (Manual) (8526-5116) /uL RBC Morphology PT (10.1-12.7) SECONDS INR (0.9-1.3) APTT (26.4-36.2) SECONDS D-Dimer (<230) ng/mL ABG pH (7.35-7.45) ABG pCO2 (35-45) mmHg ABG pO2 (80-100) mmHg ABG HCO3 (22-26) mmol/L ABG Total CO2 (21-31) mmol/L ABG O2 Saturation (95-100) % ABG Base Excess (-2-2) mmol/L FiO2 Sodium (137-145) mmol/L Potassium (3.4-5.1) mmol/L Chloride (98-107) mmol/L Carbon Dioxide (22-32) mmol/L BUN (7-17) mg/dL Creatinine (0.52-1.04) mg/dL Estimated GFR (>60) mL/min BUN/Creatinine Ratio (6-22) Glucose (80-110) mg/dL Lactate 2.5 H (0.7-2.1) mmol/L Calcium (8.4-10.2) mg/dL Total Bilirubin (0.2-1.3) mg/dL AST (14-36) IU/L ALT (<35) IU/L Alkaline Phosphatase (38-126) U/L Total Creatine Kinase (30-135) U/L CK-MB (CK-2) CK-MB (CK-2) Rel Index Troponin I (0.01-0.034) ng/mL NT-Pro-B Natriuret Pep (<125) pg/mL Total Protein (6.3-8.2) g/dL Albumin (3.5-5.0) g/dL Globulin (1.7-4.1) g/dL Albumin/Globulin Ratio (1.0-2.8) Lipase (23-300) U/L Procalcitonin (<0.5) ng/mL Prolactin (3.0-18.6) ng/mL Urine Color Urine Appearance Urine pH (4.5-8.0) Ur Specific [place] (1.000-1.035) Urine Protein (Negative) Urine Glucose (UA) (Negative) g/dL Urine Ketones (NEGATIVE) Urine Occult Blood (Negative) Urine Nitrate (Negative) Urine Bilirubin (NEGATIVE) Urine Urobilinogen (0.2) E.U./dL Ur Leukocyte Esterase (NEGATIVE) Urine RBC (0-5/HPF) Urine WBC (0-5/HPF) Urine Bacteria (None) Ur Culture Indicated? U Opiates 300ng/mL cut Negative (Negative) Ur Oxycodone Screen Positive H (Negative) Urine Methadone Screen Negative (Negative) Ur Barbiturates Screen Negative (Negative) U Tricyclic Antidepress Positive H (Negative) Ur Phencyclidine Scrn Negative (Negative) Ur Amphetamines Screen Negative (Negative) U Methamphetamines Scrn Negative (Negative) Ur MDMA Scrn (Ecstasy) Negative (Negative) U Benzodiazepines Scrn Positive H (Negative) Urine Cocaine Screen Negative (Negative) U Marijuana (THC) Screen Negative (Negative) COVID-19 PCR Negative (Negative) 10/28/20 10/28/20 10/28/20 Range/Units 01:00 01:55 01:55 WBC 5.3 (4.5-11.0) X10^3/uL RBC 3.94 L (4.0-5.2) X10^6/uL Hgb 11.5 L (12.0-16.0) g/dL Hct 36.5 (36-46) % MCV 92.5 (80-100) fL MCH 29.2 (26-34) PG MCHC 31.6 (30-36) % RDW 13.7 (11.6-14.8) % Plt Count 179 (150-400) X10^3/uL Neut % (Auto) 88.6 H Lymph % (Auto) 7.7 L [place] % (Auto) 3.0 Eos % (Auto) 0.4 L Baso % (Auto) 0.3 Neut # (Auto) 4700 (5791-0255) /uL Lymph # (Auto) 400 L [place] # (Auto) 200 Eos # (Auto) 0 (0-450) /uL Baso # (Auto) 0 Total Counted Seg Neutrophils % (38-70) % Band Neutrophils % (3-7) % Lymphocytes % (Manual) (25-45) % Atypical Lymphs % ( - 0) % Monocytes % (Manual) (2-11) % Eosinophils % (Manual) (2-4) % Basophils % (Manual) (0-1) % Neutrophils # (Manual) (1888-3048) /uL RBC Morphology PT (10.1-12.7) SECONDS INR (0.9-1.3) APTT (26.4-36.2) SECONDS D-Dimer (<230) ng/mL ABG pH (7.35-7.45) ABG pCO2 (35-45) mmHg ABG pO2 (80-100) mmHg ABG HCO3 (22-26) mmol/L ABG Total CO2 (21-31) mmol/L ABG O2 Saturation (95-100) % ABG Base Excess (-2-2) mmol/L FiO2 Sodium (137-145) mmol/L Potassium (3.4-5.1) mmol/L Chloride (98-107) mmol/L Carbon Dioxide (22-32) mmol/L BUN (7-17) mg/dL Creatinine (0.52-1.04) mg/dL Estimated GFR (>60) mL/min BUN/Creatinine Ratio (6-22) Glucose (80-110) mg/dL Lactate 0.9 (0.7-2.1) mmol/L Calcium (8.4-10.2) mg/dL Total Bilirubin (0.2-1.3) mg/dL AST (14-36) IU/L ALT (<35) IU/L Alkaline Phosphatase (38-126) U/L Total Creatine Kinase (30-135) U/L CK-MB (CK-2) CK-MB (CK-2) Rel Index Troponin I (0.01-0.034) ng/mL NT-Pro-B Natriuret Pep (<125) pg/mL Total Protein (6.3-8.2) g/dL Albumin (3.5-5.0) g/dL Globulin (1.7-4.1) g/dL Albumin/Globulin Ratio (1.0-2.8) Lipase (23-300) U/L Procalcitonin (<0.5) ng/mL Prolactin (3.0-18.6) ng/mL Urine Color Yellow Urine Appearance Clear Urine pH 7.0 (4.5-8.0) Ur Specific [place] 1.010 (1.000-1.035) Urine Protein 2+ H (Negative) Urine Glucose (UA) Negative (Negative) g/dL Urine Ketones Negative (NEGATIVE) Urine Occult Blood Trace-lysed (Negative) Urine Nitrate Negative (Negative) Urine Bilirubin Negative (NEGATIVE) Urine Urobilinogen 0.2 (0.2) E.U./dL Ur Leukocyte Esterase Negative (NEGATIVE) Urine RBC None seen (0-5/HPF) Urine WBC 1-5/hpf (0-5/HPF) Urine Bacteria Occasional (0-1) (None) Ur Culture Indicated? Cult not indicated U Opiates 300ng/mL cut (Negative) Ur Oxycodone Screen (Negative) Urine Methadone Screen (Negative) Ur Barbiturates Screen (Negative) U Tricyclic Antidepress (Negative) Ur Phencyclidine Scrn (Negative) Ur Amphetamines Screen (Negative) U Methamphetamines Scrn (Negative) Ur MDMA Scrn (Ecstasy) (Negative) U Benzodiazepines Scrn (Negative) Urine Cocaine Screen (Negative) U Marijuana (THC) Screen (Negative) COVID-19 PCR (Negative) 09/20/20 Range/Units 01:55 WBC (4.5-11.0) X10^3/uL RBC (4.0-5.2) X10^6/uL Hgb (12.0-16.0) g/dL Hct (36-46) % MCV (80-100) fL MCH (26-34) PG MCHC (30-36) % RDW (11.6-14.8) % Plt Count (150-400) X10^3/uL Neut % (Auto) Lymph % (Auto) [place] % (Auto) Eos % (Auto) Baso % (Auto) Neut # (Auto) (4661-6729) /uL Lymph # (Auto) [place] # (Auto) Eos # (Auto) (0-450) /uL Baso # (Auto) Total Counted Seg Neutrophils % (38-70) % Band Neutrophils % (3-7) % Lymphocytes % (Manual) (25-45) % Atypical Lymphs % ( - 0) % Monocytes % (Manual) (2-11) % Eosinophils % (Manual) (2-4) % Basophils % (Manual) (0-1) % Neutrophils # (Manual) (2258-1201) /uL RBC Morphology PT (10.1-12.7) SECONDS INR (0.9-1.3) APTT (26.4-36.2) SECONDS D-Dimer (<230) ng/mL ABG pH (7.35-7.45) ABG pCO2 (35-45) mmHg ABG pO2 (80-100) mmHg ABG HCO3 (22-26) mmol/L ABG Total CO2 (21-31) mmol/L ABG O2 Saturation (95-100) % ABG Base Excess (-2-2) mmol/L FiO2 Sodium 134 L (137-145) mmol/L Potassium 3.9 (3.4-5.1) mmol/L Chloride 95 L (98-107) mmol/L Carbon Dioxide 37 H (22-32) mmol/L BUN 21 H (7-17) mg/dL Creatinine 0.72 (0.52-1.04) mg/dL Estimated GFR > 60.0 (>60) mL/min BUN/Creatinine Ratio 29.2 H (6-22) Glucose 133 H (80-110) mg/dL Lactate (0.7-2.1) mmol/L Calcium 8.7 (8.4-10.2) mg/dL Total Bilirubin 0.6 (0.2-1.3) mg/dL AST 47 H (14-36) IU/L ALT 28 (<35) IU/L Alkaline Phosphatase 132 H (38-126) U/L Total Creatine Kinase (30-135) U/L CK-MB (CK-2) CK-MB (CK-2) Rel Index Troponin I (0.01-0.034) ng/mL NT-Pro-B Natriuret Pep 276 H (<125) pg/mL Total Protein 7.2 (6.3-8.2) g/dL Albumin 4.0 (3.5-5.0) g/dL Globulin 3.2 (1.7-4.1) g/dL Albumin/Globulin Ratio 1.3 (1.0-2.8) Lipase (23-300) U/L Procalcitonin (<0.5) ng/mL Prolactin (3.0-18.6) ng/mL Urine Color Urine Appearance Urine pH (4.5-8.0) Ur Specific [place] (1.000-1.035) Urine Protein (Negative) Urine Glucose (UA) (Negative) g/dL Urine Ketones (NEGATIVE) Urine Occult Blood (Negative) Urine Nitrate (Negative) Urine Bilirubin (NEGATIVE) Urine Urobilinogen (0.2) E.U./dL Ur Leukocyte Esterase (NEGATIVE) Urine RBC (0-5/HPF) Urine WBC (0-5/HPF) Urine Bacteria (None) Ur Culture Indicated? U Opiates 300ng/mL cut (Negative) Ur Oxycodone Screen (Negative) Urine Methadone Screen (Negative) Ur Barbiturates Screen (Negative) U Tricyclic Antidepress (Negative) Ur Phencyclidine Scrn (Negative) Ur Amphetamines Screen (Negative) U Methamphetamines Scrn (Negative) Ur MDMA Scrn (Ecstasy) (Negative) U Benzodiazepines Scrn (Negative) Urine Cocaine Screen (Negative) U Marijuana (THC) Screen (Negative) COVID-19 PCR (Negative) Point of Care Testing Glucose POC 134 Imaging Data Chest x-ray: My Impression: Severe COPD CTA chest: Radiologist's Impression: COPD. No evidence of PE. Partial atelectasis of the right lung base. ECG Data Attestation: I personally reviewed and interpreted this ECG as follows: (Normal sinus rhythm rate 92 beats per minute. Motion artifact. Nonspecific ST T wave changes. Type 3 Brugada pattern.) Critical Care Time Critical Care Time Critical Care Time: Yes Total Critical Care Time: 50 Attestation: Time included initial assessed the patient as well as repeat assessments. Time included Review her medical records, review of EKG, radiology and lab data. Multiple clinical decisions were necessary. I discussed the situation with her and her prior to admission. I discussed the case with the admitting physician prior to admission. Discharge Plan Departure Patient Disposition: Admitted as Observation Clinical Impression: Acute respiratory failure with hypoxia, COPD exacerbation Discharge Date/Time: 09/20/20 02:15 Referrals: Indy Ford MD [Primary Care Provider] - Admit Date/Time: 09/20/20 02:04 Admit Provider: Tsering Decker
--- NOTE | 2020-09-19 23:05 | DI.RAD.S_ITS ---
PROCEDURE: XR CHEST 1V INDICATIONS: Dyspnea TECHNIQUE: One view of the chest was acquired. COMPARISON: None. FINDINGS: Surgical changes and devices: Partially visualized fixation hardware in the lower cervical spine. Lungs and pleura: Lungs are clear. No pleural effusions or pneumothorax. Lungs are hyperinflated suggesting COPD. Mediastinum: Mediastinal contours appear normal. Heart size is normal. Bones and chest wall: No suspicious bony lesions. Overlying soft tissues appear unremarkable. IMPRESSION: No acute cardiopulmonary disease process. Dictated by: Janina Jacinto MD, PhD on 09/20/2020 at 8:02 Approved by: Janina Jacinto MD, PhD on 09/20/2020 at 8:02
--- NOTE | 2020-09-19 23:07 | DI.CT.S_ITS ---
PROCEDURE: CT HEAD/BRAIN WO CON INDICATIONS: Acute altered mental status TECHNIQUE: Noncontrast 4.5 mm thick angled axial sections acquired from the foramen magnum to the vertex, with coronal and sagittal reformats. For radiation dose reduction, the following was used: automated exposure control, adjustment of mA and/or kV according to patient size. COMPARISON: None. FINDINGS: Image quality: Excellent. CSF spaces: Basal cisterns are patent. No extra-axial fluid collections. The ventricles are symmetric in size and shape. Brain: No intracranial bleeds or masses. There is cerebral volume loss for age, with resultant ventricular and sulcal prominence. There are periventricular and deep white matter chronic small vessel ischemic changes. There is intracranial internal carotid artery atherosclerosis. Skull and face: Calvarium and visualized facial bones appear intact, without suspicious lesions. Sinuses: Visualized sinuses and mastoids are clear. IMPRESSION: No acute intracranial disease process. Dictated by: Janina Jacinto MD, PhD on 09/20/2020 at 7:15 Approved by: Janina Jacinto MD, PhD on 09/20/2020 at 7:18
[2020-09-19] MEDS: methylPREDNISolone 125 MG/2 ML VIAL IV (23:19)
[2020-09-19] MEDS: SODIUM CHLORIDE 0.9% 1,000 ML 150 ML IV (23:19)
--- NOTE | 2020-09-19 23:20 | PC.NURSE ---
Straight cath UA attempted. pt's bladder was empty
[2020-09-19 23:30] VITALS: BP 150/85; PULSE 91; RESP 14
[2020-09-19 23:31] LABS: Hemoglobin 11.6 g/dL (12.0-16.0); Mean Corpuscular HGB Conc 32.2 % (30-36); Mean Corpuscular Hemoglobin 29.8 PG (26-34); Mean Corpuscular Volume 92.5 fL (80-100); Platelet Count 246 X10^3/uL (150-400); Red Blood Cell Count 3.89 X10^6/uL (4.0-5.2); Red Cell Distribution Width 13.8 % (11.6-14.8); White Blood Cell Count 8.6 X10^3/uL (4.5-11.0)
[2020-09-19 23:32] LABS: Add Manual Diff / Slide Review YES
[2020-09-19 23:37] LABS: Alanine Aminotransferase 28 IU/L (<35); Albumin 4.3 g/dL (3.5-5.0); Albumin Globulin Ratio 1.2 (1.0-2.8); Alkaline Phosphatase 125 U/L (38-126); Aspartate Aminotransferase 45 IU/L (14-36); BUN Creatinine Ratio 23.1 (6-22); Bilirubin Total 0.4 mg/dL (0.2-1.3); Blood Urea Nitrogen 21 mg/dL (7-17); Calcium 9.2 mg/dL (8.4-10.2); Carbon Dioxide 32 mmol/L (22-32); Chloride 94 mmol/L (98-107); Creatine Kinase 72 U/L (30-135); Estimated Glomerular Filt Rate > 60.0 mL/min (>60); Globulin 3.5 g/dL (1.7-4.1); Glucose 134 mg/dL (80-110); HEMOLYSIS 18 (0-50); Lipase 25 U/L (23-300); Potassium 4.6 mmol/L (3.4-5.1); Sodium 135 mmol/L (137-145); Total Protein 7.8 g/dL (6.3-8.2)
[2020-09-19 23:40] LABS: INR 0.8 (0.9-1.3); Prothrombin Time 9.1 SECONDS (10.1-12.7)
--- NOTE | 2020-09-19 23:41 | PC.NURSE ---
Blood gas results are back. Pt being moved to room 1 to be placed on Bipap
[2020-09-19 23:43] LABS: D Dimer 506 ng/mL (<230); PTT Partial Thromboplastin Tim 26 SECONDS (26.4-36.2)
[2020-09-19 23:47] VITALS: BP 176/97; PULSE 91; RESP 14; O2SAT 92
[2020-09-19 23:48] LABS: NT-proBNP (BNP-Adult 18+) 365 pg/mL (<125); Troponin I < 0.012 ng/mL (0.01-0.034)
[2020-09-19 23:50] VITALS: PULSE 86; RESP 28; O2SAT 93
[2020-09-19 23:52] LABS: Procalcitonin < 0.05 ng/mL (<0.5)
[2020-09-19 23:55] VITALS: PULSE 84; RESP 25; O2SAT 91
[2020-09-19 23:55] LABS: Prolactin 21.3 ng/mL (3.0-18.6)
[2020-09-19 23:58] LABS: Lactate (Lactic Acid) 2.5 mmol/L (0.7-2.1)
[2020-09-20] VITALS (91 sets, daily range): BP systolic 158–228; BP diastolic 85–112; PULSE 82–110; RESP 15–37; TEMP 36.7–37.1; O2SAT 3–99; BMI 16.2
[2020-09-20 00:02] LABS: COVID19 -Nasal RAPID Negative (Negative)
[2020-09-20 00:11] LABS: pH ABG 7.27 (7.35-7.45)
[2020-09-20 00:12] LABS: HCO3 ABG 36 mmol/L (22-26); PCO2 ABG 79.2 mmHg (35-45); PO2 ABG 156 mmHg (80-100); TCO2 ABG 39 mmol/L (21-31)
[2020-09-20 00:13] LABS: Fractionated Inspired Oxygen 36; Oxygen Saturation ABG 99 % (95-100)
--- NOTE | 2020-09-20 00:20 | DI.CT.S_ITS ---
PROCEDURE: CT ANGIO CHEST PE PROTOCOL INDICATIONS: Respiratory failure TECHNIQUE: After the administration of intravenous contrast, 2 mm thick sections acquired from the pulmonary apices to the posterior costophrenic angles. 3-dimensional maximum intensity projection (MIP) coronal and sagittal reformats were then acquired through the thorax. For radiation dose reduction, the following was used: automated exposure control, adjustment of mA and/or kV according to patient size. COMPARISON: None. FINDINGS: Image quality: Excellent. Pulmonary arteries: Pulmonary arteries are normal in size, and demonstrate no intraluminal filling defects to suggest central pulmonary embolism. Lungs and pleura: Atelectasis noted in the dependent portion of the right lung base. Severe emphysematous changes noted in the lungs bilaterally. No pleural effusions or pneumothorax. Central and peripheral airways are patent. Mediastinum: Heart size is normal, without pericardial effusion. Atherosclerotic calcifications are noted in the aorta, great vessels and the coronary vasculature.No mediastinal or hilar adenopathy. Thoracic aorta is normal in caliber and enhancement. Esophagus is normal in caliber, without hiatal hernia. Bones and chest wall: No suspicious bony lesions. Ribs and thoracic spine appear intact throughout. Spine degenerative disc disease and facet arthropathy. Partially visualized fixation hardware noted in the lower cervical spine. Thyroid gland is normal. No axillary or supraclavicular adenopathy. Abdomen: Gallbladder is surgically absent. Punctate calcification noted in the spleen compatible with sequela prior granulomatous disease. Visualized upper abdominal solid organs otherwise appear normal in the early arterial phase of enhancement. IMPRESSION: 1. No pulmonary embolus. 2. Atelectasis in the right lung base. 3. Severe bilateral lung emphysematous disease. Dictated by: Janina Jacinto MD, PhD on 09/20/2020 at 7:12 Approved by: Janina Jacinto MD, PhD on 09/20/2020 at 7:15
[2020-09-20] MEDS: PIPERACILLIN-TAZO 3.375 GM/50 ML FROZ.PIGGY IV (00:43)
[2020-09-20] MEDS: SODIUM CHLORIDE 0.9% 1,000 ML 1000 ML IV (00:43)
[2020-09-20 00:57] LABS: Neutrophils Absolute Manual 3440 /uL (3000-5900); RBC Morphology Normal Morphology; Total Cells Counted 100
--- NOTE | 2020-09-20 01:08 | PC.NURSE ---
Pt did well in CT on 4l NC. RT and MD will take off the Bipap for now after her return from the CT scanner and repeat the ABG shortly. Pt will continue on with 4l via NC. Pt is now more alert. A&OX3, able to converse, speech slightly garbled.
[2020-09-20 01:12] LABS: RBC Urine None Seen (0-5/HPF)
[2020-09-20 01:14] LABS: Appearance Urine UA CLEAR; Bilirubin Urine UA NEGATIVE (NEGATIVE); Color Urine UA YELLOW; Glucose Urine UA NEGATIVE (Negative); Ketones Urine UA NEGATIVE (NEGATIVE); Leukocyte Esterase Urine UA NEGATIVE (NEGATIVE); Nitrite Urine UA NEGATIVE (Negative); Occult Blood Urine UA TRACE-LYSED (Negative); Protein Urine UA 2+ (Negative); Urobilinogen Urine UA 0.2 E.U./dL (0.2)
[2020-09-20 01:20] LABS: UR Morphine/Opiate cutoff 300 Negative (Negative); Ur Creatinine 20 (Normal); Urine Amphetamines Negative (Negative); Urine Barbiturates Negative (Negative); Urine Benzodiazepines Positive (Negative); Urine Cocaine Negative (Negative); Urine MDMA Negative (Negative); Urine Methadone Negative (Negative); Urine Methamphetamines Negative (Negative); Urine Oxycodone Positive (Negative); Urine Phencyclidine Negative (Negative); Urine Tetrahydrocannabinol Negative (Negative); Urine Tricyclic Antidepressant Positive (Negative); Urine pH 7 (Normal)
[2020-09-20 01:26] LABS: Bacteria Urine Occasional (0-1); WBC Urine 1-5/HPF (0-5/HPF)
[2020-09-20 01:27] LABS: Culture Indicated Urine Cult Not Indicated
--- NOTE | 2020-09-20 01:37 | PC.NURSE ---
Pt's WOB increasing. RT putting pt back on the bipap.
[2020-09-20] MEDS: LORazepam 2 MG/ML INJ 0.5 MG IV (01:39)
[2020-09-20 01:43] LABS: Reflexed Lactate in 2 Hours Y
[2020-09-20 02:15] LABS: Lactate 2HR (Lactic Acid Rflx) 0.9 mmol/L (0.7-2.1)
[2020-09-20 02:44] LABS: Add Manual Diff / Slide Review NO; Basophils Absolute Auto 0 /uL (0-100); Basophils Percent Auto 0.3 % (0-2); Eosinophils Absolute Auto 0 /uL (0-450); Eosinophils Percent Auto 0.4 % (2-4); Hematocrit 36.5 % (36-46); Hemoglobin 11.5 g/dL (12.0-16.0); Lymphocytes Absolute Auto 400 /uL (1100-4500); Lymphocytes Percent Auto 7.7 % (25-40); Mean Corpuscular HGB Conc 31.6 % (30-36); Mean Corpuscular Hemoglobin 29.2 PG (26-34); Mean Corpuscular Volume 92.5 fL (80-100); Monocytes Absolute Auto 200 /uL (0-900); Neutrophils Absolute Auto 4700 /uL (1500-7000); Neutrophils Percent Auto 88.6 % (50-75); Platelet Count 179 X10^3/uL (150-400); Red Blood Cell Count 3.94 X10^6/uL (4.0-5.2); Red Cell Distribution Width 13.7 % (11.6-14.8); White Blood Cell Count 5.3 X10^3/uL (4.5-11.0)
[2020-09-20 02:48] LABS: Alanine Aminotransferase 28 IU/L (<35); Albumin Globulin Ratio 1.3 (1.0-2.8); Alkaline Phosphatase 132 U/L (38-126); Aspartate Aminotransferase 47 IU/L (14-36); BUN Creatinine Ratio 29.2 (6-22); Bilirubin Total 0.6 mg/dL (0.2-1.3); Blood Urea Nitrogen 21 mg/dL (7-17); Calcium 8.7 mg/dL (8.4-10.2); Carbon Dioxide 37 mmol/L (22-32); Chloride 95 mmol/L (98-107); Estimated Glomerular Filt Rate > 60.0 mL/min (>60); Globulin 3.2 g/dL (1.7-4.1); Glucose 133 mg/dL (80-110); HEMOLYSIS < 15 (0-50); Potassium 3.9 mmol/L (3.4-5.1); Sodium 134 mmol/L (137-145); Total Protein 7.2 g/dL (6.3-8.2)
[2020-09-20] MEDS: SODIUM CHLORIDE 0.9% 1,000 ML 125 ML IV ×3 (02:50→22:04)
[2020-09-20 02:57] LABS: NT-proBNP (BNP-Adult 18+) 276 pg/mL (<125)
[2020-09-20] MEDS: ALBUTEROL 2.5 MG/3 ML NEB (ADULT) INH ×2 (03:39→05:37)
[2020-09-20] MEDS: LORazepam 2 MG/ML INJ (04:00)
--- NOTE | 2020-09-20 05:45 | PM.HP.1 ---
History of Present Illness History of Present Illness Date Patient Seen: 09/20/20 Time Patient Seen: 05:45 Chief complaint: Altered mental status Narrative: 60-year-old female with oxygen-dependent COPD presents with acute COPD exacerbation and respiratory failure after being found down at home. was in another room when he heard a large thump and found patient down on the floor and crawling around incoherently. She was shaking and was unclear if she had had a seizure. She does have a history of seizures as a child, nothing recent. No recent travel, fever, or illness. Patient did have wine that night at dinner as family was over. Normally has 4 glasses of wine daily. EMS administered Versed with some improvement but upon arrival in the ED she was not verbally responsive. She did push away from pain. Vital signs included a temperature of 97.7?, pulse 93, respirations 10, blood pressure 160/95, O2 saturation 82% on room air. Initial ABG revealed a pH of 7.26, pCO2 79, PO2 56. She was started on BiPAP and repeat ABG revealed a pH of 7.359, pCO2 61, PO2 63. She was administered DuoNebs and 125 mg of IV Solu-Medrol before being transferred to the floor. Notable labs include an elevated D-dimer of 506., CTA was negative for PE. BNP was slightly elevated at 276, there were no clinical signs of CHF. Chest x-ray showed severe COPD. Lactic acid was also initially elevated at 2.5 and after administration of Zosyn, returned within normal limits. 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 Benign paroxysmal positional vertigo Hypertension, orthostatic Hyperlipidemia Hypertension Hypokalemia Cardiomyopathy Peripheral vascular disease Weight loss COPD, oxygen-dependent GERD Chronic pain Depression Anxiety Panic disorder Tobacco dependence History of alcohol abuse Past Surgical History: Carpal tunnel release (2002) Left 09/19/15 Back surgeries: 5 Laminectomy (1984), further surgery (1995, 1997), cervical discectomy and fusion C5-6, C6-7, redo left L4-L5 partial hemilaminectomy and microdiscectomy (02/2005) Neck surgery (11/2002) Hysterectomy Tonsillectomy Left Cataract removal (2015) Cataract Extraction right 10/29/16 Family History: Father: Hypertension,ETOH Mother: Heart Disease, Hyperlipidemia,ovarian cancer,HTN Siblings:ETOH Social History: Marital Status: Children: Occupation: [employer] Household Members: Osorio spouse 07/13/43 Education: GED Patient History Medical History Anxiety (Acute) Aortoiliac occlusive disease (Acute) COPD (chronic obstructive pulmonary disease) (Acute) Diarrhea (Acute) History of respiratory failure (Acute) Hypertension (Acute) Tobacco abuse (Acute) Surgical History History of aorto-femoral bypass (Acute) History of back surgery (Acute) History of carpal tunnel release (Acute) History of cataract removal with insertion of prosthetic lens (Acute) History of colonoscopy (Acute) History of hysterectomy (Acute) Family & Social History Family History Brother Cancer Family/Other Cancer Social History: household members spouse Prior Living Arrangements House Safety & Behavioral: Feels Safe in Current Yes Environment Been Physically Hurt or No Threatened By a Person Suicidal Ideation Description None Suicide Plan Description No Plan Tobacco & Substance use: Tobacco type cigarettes Smoking Status Current every day smoker alcohol intake current alcohol intake frequency 3 or more drinks per day Substance Use Type does not use Meds Home Medications and Allergies Home Medications Medication Instructions Recorded Confirmed Type cyclobenzaprine 10 mg PO HSP #0 06/08/13 12/29/19 History potassium chloride [Klor-Con M10] 30 meq PO QDAY #0 06/08/13 12/29/19 History atorvastatin 10 mg PO BEDTIME 12/29/19 12/29/19 History oxycodone See Rx Instructions .ROUTE .COMPLEX 12/29/19 12/29/19 History temazepam 7.5 mg PO BEDTIME 12/29/19 12/29/19 History venlafaxine 175 mg PO DAILY 12/29/19 12/29/19 History Allergies Allergy/AdvReac Type Severity Reaction Status Date / Time No Known Drug Allergies Allergy Verified 09/19/20 23:15 Review of Systems Review of Systems ROS: Yes All systems reviewed with the patient and are negative except as otherwise documented Exam Vital Signs (past 8 hours): - 09/19/20 23:00 09/19/20 23:30 09/19/20 23:47 Temperature 97.7 F Pulse Rate 94 H 91 H 91 H Respiratory Rate 14 14 14 Blood Pressure 160/90 H 150/85 H 176/97 H Pulse Oximetry 86 L 92 09/19/20 23:50 09/19/20 23:55 09/20/20 00:00 Temperature Pulse Rate 86 84 83 Respiratory Rate 28 H 25 H 27 H Blood Pressure 159/88 H Pulse Oximetry 93 91 91 09/20/20 00:05 09/20/20 00:10 09/20/20 00:15 Temperature Pulse Rate 82 86 90 Respiratory Rate 26 H 23 24 Blood Pressure Pulse Oximetry 91 89 L 89 L 09/20/20 00:20 09/20/20 00:25 09/20/20 00:39 Temperature Pulse Rate 85 84 92 H Respiratory Rate 32 H 33 H 22 Blood Pressure Pulse Oximetry 91 91 96 09/20/20 00:40 09/20/20 00:45 09/20/20 00:50 Temperature Pulse Rate 91 H 90 92 H Respiratory Rate 17 26 H 25 H Blood Pressure 195/98 H Pulse Oximetry 96 96 96 09/20/20 00:55 09/20/20 01:00 09/20/20 01:01 Temperature Pulse Rate 93 H 95 H 94 H Respiratory Rate 21 24 24 Blood Pressure 228/112 H Pulse Oximetry 95 95 93 09/20/20 01:05 09/20/20 01:10 09/20/20 01:14 Temperature Pulse Rate 92 H 90 88 Respiratory Rate 17 22 17 Blood Pressure 185/85 H Pulse Oximetry 98 99 99 09/20/20 01:15 09/20/20 01:20 09/20/20 01:25 Temperature Pulse Rate 89 90 96 H Respiratory Rate 19 19 25 H Blood Pressure Pulse Oximetry 98 98 96 09/20/20 01:30 09/20/20 01:35 09/20/20 01:40 Temperature Pulse Rate 101 H 100 H 101 H Respiratory Rate 22 20 17 Blood Pressure 173/108 H Pulse Oximetry 90 L 93 92 09/20/20 01:45 09/20/20 01:50 09/20/20 01:55 Temperature Pulse Rate 97 H 95 H 97 H Respiratory Rate 15 18 17 Blood Pressure Pulse Oximetry 93 92 90 L 09/20/20 02:00 09/20/20 02:05 09/20/20 02:35 Temperature 98.0 F Pulse Rate 97 H 97 H 103 H Respiratory Rate 18 25 H 22 Blood Pressure 196/98 H 210/108 H Pulse Oximetry 89 L 91 90 L 09/20/20 03:16 09/20/20 03:44 09/20/20 05:41 Temperature Pulse Rate 97 H 96 H 96 H Respiratory Rate 20 20 20 Blood Pressure Pulse Oximetry 3 L 93 92 Fraction of Inspired Oxygen 0.85 Oxygen Delivery Method BiPAP Oxygen Flow Rate 4 Narrative Exam Narrative: GENERAL: Alert and oriented, appearing stated age and in no acute distress. HEENT: Head normocephalic/atraumatic. Pupils equal, round, and reactive to light and accomodation. Extraocular muscles intact. Tympanic membranes clear. Nasal mucosa moist, septum midline. Oral mucosa moist, no lesions. Neck soft and supple, no lymphadenopathy. LUNGS: Diminished inspiratory effort, no audible wheezes, rhonchi, or rales. CV: Normal S1 and S2 with regular rate and rhythm, no audible murmurs, rubs or gallops. ABDOMEN: Soft, non-tender, non-distended, no organomegaly. Positive bowel sounds. EXTREMITIES: No clubbing, cyanosis, or edema. NEURO: Cranial nerves II through XII grossly intact, no focal deficits. PSYCH: Alert and oriented x 3. SKIN: No concerning lesions. Objective Labs Result Diagrams: 09/20/20 08:04 09/20/20 08:04 Labs: Laboratory Results - last 24 hr 09/19/20 09/19/20 09/19/20 23:18 23:18 23:18 WBC 8.6 RBC 3.89 L Hgb 11.6 L Hct 36.0 MCV 92.5 MCH 29.8 MCHC 32.2 RDW 13.8 Plt Count 246 Neut % (Auto) Not Reportable Lymph % (Auto) Not Reportable [place] % (Auto) Not Reportable Eos % (Auto) Not Reportable Baso % (Auto) Not Reportable Neut # (Auto) Lymph # (Auto) Not Reportable [place] # (Auto) Not Reportable Eos # (Auto) Baso # (Auto) Not Reportable Total Counted 100 Seg Neutrophils % 38.0 Band Neutrophils % 2.0 L Lymphocytes % (Manual) 37.0 Atypical Lymphs % 14.0 H Monocytes % (Manual) 7.0 Eosinophils % (Manual) 1.0 L Basophils % (Manual) 1.0 Neutrophils # (Manual) 3440 RBC Morphology Normal morphology PT 9.1 L INR 0.8 L APTT 26 L D-Dimer 506 H ABG pH ABG pCO2 ABG pO2 ABG HCO3 ABG Total CO2 ABG O2 Saturation ABG Base Excess FiO2 Sodium 135 L Potassium 4.6 Chloride 94 L Carbon Dioxide 32 BUN 21 H Creatinine 0.91 Estimated GFR > 60.0 BUN/Creatinine Ratio 23.1 H Glucose 134 H Lactate Calcium 9.2 Total Bilirubin 0.4 AST 45 H ALT 28 Alkaline Phosphatase 125 Total Creatine Kinase 72 CK-MB (CK-2) TNP CK-MB (CK-2) Rel Index TNP Troponin I < 0.012 NT-Pro-B Natriuret Pep 365 H Total Protein 7.8 Albumin 4.3 Globulin 3.5 Albumin/Globulin Ratio 1.2 Lipase 25 Procalcitonin Prolactin Urine Color Urine Appearance Urine pH Ur Specific [place] Urine Protein Urine Glucose (UA) Urine Ketones Urine Occult Blood Urine Nitrate Urine Bilirubin Urine Urobilinogen Ur Leukocyte Esterase Urine RBC Urine WBC Urine Bacteria Ur Culture Indicated? Nasal Screen MRSA (PCR) U Opiates 300ng/mL cut Ur Oxycodone Screen Urine Methadone Screen Ur Barbiturates Screen U Tricyclic Antidepress Ur Phencyclidine Scrn Ur Amphetamines Screen U Methamphetamines Scrn Ur MDMA Scrn (Ecstasy) U Benzodiazepines Scrn Urine Cocaine Screen U Marijuana (THC) Screen COVID-19 PCR 09/19/20 09/19/20 09/19/20 23:18 23:18 23:33 WBC RBC Hgb Hct MCV MCH MCHC RDW Plt Count Neut % (Auto) Lymph % (Auto) [place] % (Auto) Eos % (Auto) Baso % (Auto) Neut # (Auto) Lymph # (Auto) [place] # (Auto) Eos # (Auto) Baso # (Auto) Total Counted Seg Neutrophils % Band Neutrophils % Lymphocytes % (Manual) Atypical Lymphs % Monocytes % (Manual) Eosinophils % (Manual) Basophils % (Manual) Neutrophils # (Manual) RBC Morphology PT INR APTT D-Dimer ABG pH 7.27 L* ABG pCO2 79.2 H* ABG pO2 156 H ABG HCO3 36 H ABG Total CO2 39 H ABG O2 Saturation 99 ABG Base Excess 9.0 H FiO2 36 Sodium Potassium Chloride Carbon Dioxide BUN Creatinine Estimated GFR BUN/Creatinine Ratio Glucose Lactate Calcium Total Bilirubin AST ALT Alkaline Phosphatase Total Creatine Kinase CK-MB (CK-2) CK-MB (CK-2) Rel Index Troponin I NT-Pro-B Natriuret Pep Total Protein Albumin Globulin Albumin/Globulin Ratio Lipase Procalcitonin < 0.05 Prolactin 21.3 H Urine Color Urine Appearance Urine pH Ur Specific [place] Urine Protein Urine Glucose (UA) Urine Ketones Urine Occult Blood Urine Nitrate Urine Bilirubin Urine Urobilinogen Ur Leukocyte Esterase Urine RBC Urine WBC Urine Bacteria Ur Culture Indicated? Nasal Screen MRSA (PCR) U Opiates 300ng/mL cut Ur Oxycodone Screen Urine Methadone Screen Ur Barbiturates Screen U Tricyclic Antidepress Ur Phencyclidine Scrn Ur Amphetamines Screen U Methamphetamines Scrn Ur MDMA Scrn (Ecstasy) U Benzodiazepines Scrn Urine Cocaine Screen U Marijuana (THC) Screen COVID-19 PCR 09/19/20 09/19/20 09/20/20 23:35 23:36 01:00 WBC RBC Hgb Hct MCV MCH MCHC RDW Plt Count Neut % (Auto) Lymph % (Auto) [place] % (Auto) Eos % (Auto) Baso % (Auto) Neut # (Auto) Lymph # (Auto) [place] # (Auto) Eos # (Auto) Baso # (Auto) Total Counted Seg Neutrophils % Band Neutrophils % Lymphocytes % (Manual) Atypical Lymphs % Monocytes % (Manual) Eosinophils % (Manual) Basophils % (Manual) Neutrophils # (Manual) RBC Morphology PT INR APTT D-Dimer ABG pH ABG pCO2 ABG pO2 ABG HCO3 ABG Total CO2 ABG O2 Saturation ABG Base Excess FiO2 Sodium Potassium Chloride Carbon Dioxide BUN Creatinine Estimated GFR BUN/Creatinine Ratio Glucose Lactate 2.5 H Calcium Total Bilirubin AST ALT Alkaline Phosphatase Total Creatine Kinase CK-MB (CK-2) CK-MB (CK-2) Rel Index Troponin I NT-Pro-B Natriuret Pep Total Protein Albumin Globulin Albumin/Globulin Ratio Lipase Procalcitonin Prolactin Urine Color Urine Appearance Urine pH Ur Specific [place] Urine Protein Urine Glucose (UA) Urine Ketones Urine Occult Blood Urine Nitrate Urine Bilirubin Urine Urobilinogen Ur Leukocyte Esterase Urine RBC Urine WBC Urine Bacteria Ur Culture Indicated? Nasal Screen MRSA (PCR) U Opiates 300ng/mL cut Negative Ur Oxycodone Screen Positive H Urine Methadone Screen Negative Ur Barbiturates Screen Negative U Tricyclic Antidepress Positive H Ur Phencyclidine Scrn Negative Ur Amphetamines Screen Negative U Methamphetamines Scrn Negative Ur MDMA Scrn (Ecstasy) Negative U Benzodiazepines Scrn Positive H Urine Cocaine Screen Negative U Marijuana (THC) Screen Negative COVID-19 PCR Negative 09/20/20 09/20/20 09/20/20 01:00 01:55 01:55 WBC 5.3 RBC 3.94 L Hgb 11.5 L Hct 36.5 MCV 92.5 MCH 29.2 MCHC 31.6 RDW 13.7 Plt Count 179 Neut % (Auto) 88.6 H Lymph % (Auto) 7.7 L [place] % (Auto) 3.0 Eos % (Auto) 0.4 L Baso % (Auto) 0.3 Neut # (Auto) 4700 Lymph # (Auto) 400 L [place] # (Auto) 200 Eos # (Auto) 0 Baso # (Auto) 0 Total Counted Seg Neutrophils % Band Neutrophils % Lymphocytes % (Manual) Atypical Lymphs % Monocytes % (Manual) Eosinophils % (Manual) Basophils % (Manual) Neutrophils # (Manual) RBC Morphology PT INR APTT D-Dimer ABG pH ABG pCO2 ABG pO2 ABG HCO3 ABG Total CO2 ABG O2 Saturation ABG Base Excess FiO2 Sodium Potassium Chloride Carbon Dioxide BUN Creatinine Estimated GFR BUN/Creatinine Ratio Glucose Lactate 0.9 Calcium Total Bilirubin AST ALT Alkaline Phosphatase Total Creatine Kinase CK-MB (CK-2) CK-MB (CK-2) Rel Index Troponin I NT-Pro-B Natriuret Pep Total Protein Albumin Globulin Albumin/Globulin Ratio Lipase Procalcitonin Prolactin Urine Color Yellow Urine Appearance Clear Urine pH 7.0 Ur Specific [place] 1.010 Urine Protein 2+ H Urine Glucose (UA) Negative Urine Ketones Negative Urine Occult Blood Trace-lysed Urine Nitrate Negative Urine Bilirubin Negative Urine Urobilinogen 0.2 Ur Leukocyte Esterase Negative Urine RBC None seen Urine WBC 1-5/hpf Urine Bacteria Occasional (0-1) Ur Culture Indicated? Cult not indicated Nasal Screen MRSA (PCR) U Opiates 300ng/mL cut Ur Oxycodone Screen Urine Methadone Screen Ur Barbiturates Screen U Tricyclic Antidepress Ur Phencyclidine Scrn Ur Amphetamines Screen U Methamphetamines Scrn Ur MDMA Scrn (Ecstasy) U Benzodiazepines Scrn Urine Cocaine Screen U Marijuana (THC) Screen COVID-19 PCR 09/20/20 09/20/20 09/20/20 01:55 02:35 03:10 WBC RBC Hgb Hct MCV MCH MCHC RDW Plt Count Neut % (Auto) Lymph % (Auto) [place] % (Auto) Eos % (Auto) Baso % (Auto) Neut # (Auto) Lymph # (Auto) [place] # (Auto) Eos # (Auto) Baso # (Auto) Total Counted Seg Neutrophils % Band Neutrophils % Lymphocytes % (Manual) Atypical Lymphs % Monocytes % (Manual) Eosinophils % (Manual) Basophils % (Manual) Neutrophils # (Manual) RBC Morphology PT INR APTT D-Dimer ABG pH ABG pCO2 ABG pO2 ABG HCO3 ABG Total CO2 ABG O2 Saturation ABG Base Excess FiO2 Sodium 134 L Potassium 3.9 Chloride 95 L Carbon Dioxide 37 H BUN 21 H Creatinine 0.72 Estimated GFR > 60.0 BUN/Creatinine Ratio 29.2 H Glucose 133 H Lactate Calcium 8.7 Total Bilirubin 0.6 AST 47 H ALT 28 Alkaline Phosphatase 132 H Total Creatine Kinase Cancelled CK-MB (CK-2) Cancelled CK-MB (CK-2) Rel Index Cancelled Troponin I Cancelled NT-Pro-B Natriuret Pep 276 H Total Protein 7.2 Albumin 4.0 Globulin 3.2 Albumin/Globulin Ratio 1.3 Lipase Procalcitonin Prolactin Urine Color Urine Appearance Urine pH Ur Specific [place] Urine Protein Urine Glucose (UA) Urine Ketones Urine Occult Blood Urine Nitrate Urine Bilirubin Urine Urobilinogen Ur Leukocyte Esterase Urine RBC Urine WBC Urine Bacteria Ur Culture Indicated? Nasal Screen MRSA (PCR) Negative for mrsa U Opiates 300ng/mL cut Ur Oxycodone Screen Urine Methadone Screen Ur Barbiturates Screen U Tricyclic Antidepress Ur Phencyclidine Scrn Ur Amphetamines Screen U Methamphetamines Scrn Ur MDMA Scrn (Ecstasy) U Benzodiazepines Scrn Urine Cocaine Screen U Marijuana (THC) Screen COVID-19 PCR Assessment & Plan Assessment & Plan narrative: 1. COPD exacerbation Plan: Amoxicillin, prednisone, albuterol, DuoNebs, Spiriva, and Advair. RT consulting. Continue BiPAP and oxygen therapy as needed. 2. Acute hypoxic respiratory failure Plan: Please see #1. 3. Elevated D-dimer -CT angiogram negative Plan: With history of smoking and peripheral vascular disease, risk of DVT, will check bilateral lower extremity duplex ultrasound today. Prophylactic Lovenox. 4. Elevated BNP, 276 -No clinical signs of CHF. Plan: Will watch closely and trend labs. 5. Electrolyte derangement, chronic -baseline sodium: 135 -baseline chloride: 90 -baseline bicarbonate: 36 -history of hypokalemia, corrected with 60 mEq of potassium daily. Plan: Electrolyte derangement is multifactorial but largely from her chronic COPD. Will continue potassium 40 meq daily supplementation and trend labs. 7. Orthostatic hypotension -Currently hypertensive, likely due to uncontrolled pain, anxeity, and respiratory distress. Plan: Will work on patient's underlying acute issues including supporting her respiratory distress and getting her back on her chronic pain medications today. She does have a history of alcohol abuse, [facility] protocol will be in place throughout her stay. She may need a bit of Ativan for anxiety/air hunger and that has been and ordered as an as needed medication. Avoiding beta-shaniqua secondary to her COPD. 8. Hyperlipidemia, chronic Plan: Continue atorvastatin 10 mg p.o. q.day. 9. History of alcohol use, 4 large glasses of wine daily Plan: CINJ protocol. 10. Tobacco use, 60 pack-year history Plan: Nicoderm 7 mg patch. 11. Depression/anxiety/panic attacks Plan: Continue venlafaxine ER 150 mg p.o. q.day. Code: Full DVT prophylaxis: Lovenox GI prophylaxis: Protonix COVID: Negative on 09/14/2020 Quality VTE Deep Vein Thrombosis/Pulmonary Embolism Present on Admission: No
--- NOTE | 2020-09-20 06:40 | PC.NURSE ---
Admit/Night note-Patient brought to ICU room 230, fatigued but able to answer most of admit question. On 2-4L initially, but placed back on Bi-pap .28 FIO2, 12/5, rate 20, required 1mg IV Ativan in order to tolerate the mask, is effective. LS very diminished and tight, RR up to 40s and desats to 80s with NC. Using bedpan to void large amounts pale urine. NS @ 125ml/hr.
--- NOTE | 2020-09-20 06:49 | DI.US.S_ITS ---
PROCEDURE: US PERIPH VENOUS LOW EXTREM BI INDICATIONS: ELEVATED D-DIMER. 60 PACKS PER YEAR. TECHNIQUE: Real-time imaging, as well as color and pulse Doppler interrogation, were performed of the deep veins of both legs from the inguinal ligament to the popliteal fossa. COMPARISON: None. FINDINGS: Right: The common femoral, femoral and popliteal veins are normally compressible, and free of intraluminal thrombus. Color and pulse Doppler demonstrate normal phasic intravascular flow. There is normal augmentation response to distal compression maneuver. Left: The common femoral, femoral and popliteal veins are normally compressible, and free of intraluminal thrombus. Color and pulse Doppler demonstrate normal phasic intravascular flow. There is normal augmentation response to distal compression maneuver. IMPRESSION: No sonographic evidence of deep venous thrombosis in the bilateral lower extremities. Dictated by: Sundar Stevenson M.D. on 09/20/2020 at 9:02 Approved by: Sundar Stevenson M.D. on 09/20/2020 at 9:03
[2020-09-20] MEDS: TIOTROPIUM BROMIDE 18 MCG INHALER INH (07:54)
[2020-09-20] MEDS: ALBUTEROL/IPRATROPIUM 3 ML AMPUL INH ×3 (07:54→17:42)
[2020-09-20] MEDS: FLUTICASONE/SALMETEROL 250/50 60 PUFF DISKUS INH ×2 (07:54→19:20)
[2020-09-20 08:06] LABS: pH ABG 7.36 (7.35-7.45)
[2020-09-20 08:07] LABS: Fractionated Inspired Oxygen 28; HCO3 ABG 35 mmol/L (22-26); Oxygen Saturation ABG 90 % (95-100); PCO2 ABG 61.2 mmHg (35-45); PO2 ABG 63 mmHg (80-100); TCO2 ABG 36 mmol/L (21-31)
[2020-09-20] MEDS: NICOTINE 7 MG PATCH TOP (08:17)
[2020-09-20] MEDS: predniSONE 20 MG TABLET 40 MG PO ×2 (08:17→11:19)
[2020-09-20] MEDS: OXYCODONE IR 5 MG TABLET 20 MG PO ×3 (08:17→16:04)
[2020-09-20] MEDS: DOCUSATE 100 MG CAPSULE PO ×3 (08:17→20:16)
[2020-09-20] MEDS: MULTIVITAMIN 1 TABLET 1 TAB PO ×2 (08:17→11:19)
[2020-09-20] MEDS: THIAMINE 100 MG TABLET PO ×2 (08:18→11:22)
[2020-09-20] MEDS: FOLIC ACID 1 MG TABLET PO ×2 (08:18→11:18)
[2020-09-20] MEDS: INFLUENZA VACCINE 0.5 ML SYRINGE IM (08:18)
[2020-09-20] MEDS: AMOXICILLIN 250 MG CAPSULE 500 MG PO ×4 (08:18→20:23)
[2020-09-20] MEDS: PANTOPRAZOLE 40 MG TABLET PO ×2 (08:18→11:20)
[2020-09-20] MEDS: ENOXAPARIN 40 MG/0.4 ML SYRINGE SUBCUT (08:18)
[2020-09-20 08:30] LABS: Add Manual Diff / Slide Review NO; Basophils Absolute Auto 0 /uL (0-100); Basophils Percent Auto 0.4 % (0-2); Eosinophils Absolute Auto 0 /uL (0-450); Hematocrit 38.1 % (36-46); Hemoglobin 12.1 g/dL (12.0-16.0); Lymphocytes Absolute Auto 300 /uL (1100-4500); Lymphocytes Percent Auto 7.5 % (25-40); Mean Corpuscular HGB Conc 31.9 % (30-36); Mean Corpuscular Hemoglobin 29.1 PG (26-34); Mean Corpuscular Volume 91.2 fL (80-100); Monocytes Absolute Auto 100 /uL (0-900); Monocytes Percent Auto 2.1 % (3-14); Neutrophils Absolute Auto 4100 /uL (1500-7000); Platelet Count 195 X10^3/uL (150-400); Red Blood Cell Count 4.18 X10^6/uL (4.0-5.2); Red Cell Distribution Width 14.1 % (11.6-14.8); White Blood Cell Count 4.5 X10^3/uL (4.5-11.0)
[2020-09-20 08:44] LABS: Alanine Aminotransferase 28 IU/L (<35); Albumin 4.2 g/dL (3.5-5.0); Albumin Globulin Ratio 1.2 (1.0-2.8); Alkaline Phosphatase 128 U/L (38-126); Aspartate Aminotransferase 42 IU/L (14-36); BUN Creatinine Ratio 27.1 (6-22); Bilirubin Total 0.4 mg/dL (0.2-1.3); Blood Urea Nitrogen 16 mg/dL (7-17); Calcium 8.7 mg/dL (8.4-10.2); Carbon Dioxide 39 mmol/L (22-32); Chloride 93 mmol/L (98-107); Estimated Glomerular Filt Rate > 60.0 mL/min (>60); Globulin 3.4 g/dL (1.7-4.1); Glucose 176 mg/dL (80-110); HEMOLYSIS < 15 (0-50); Potassium 3.2 mmol/L (3.4-5.1); Sodium 137 mmol/L (137-145); Total Protein 7.6 g/dL (6.3-8.2)
[2020-09-20 08:51] LABS: NT-proBNP (BNP-Adult 18+) 612 pg/mL (<125)
--- NOTE | 2020-09-20 09:51 | PC.NURSE ---
Addendum entered by Berny Hallman R.N. 09/20/20 10:52: Clarified tresiba dosing with Dr. Pedraza. Instruction received for pt to receive full 50 units of tresiba today. Related this information to pt and mom. Pt left at 1050 with all belongings, tresiba. Mom providing transportation home. Pt was in no distress and ambulated independently to exit. Original Note: Rec'd pt in bed pulling off bipap mask. Transitioned to 2L NC (home dose) with SPO2 94%. Pt able to answer questions with slightly garbled speech (she attributes to dry mouth, able to self correct) but appropriate. Pt is drowsy but able to follow commands. She is reporting chronic pain to back and legs- requesting oxycodone. Pt noted to be increasingly drowsy and having difficulty maintaining eye opening, falling asleep mid sentence at time of med pass. Held AM meds and breakfast. Placed on bipap and repositioned for comfort. After an hour, pt is slightly more awake but still quite drowsy and unable to maintain eye opening. Called to Dr. Ford. Reported assessment findings. Instructed by MD to hold off on PO intake for now, place on bipap, administer PRN morphine for pain/air hunger. Dr. Ford states she will round ~ lunch time and review medication orders and change as needed. Call light in easy reach, bed alarm on. at bedside.
[2020-09-20] MEDS: MORPHINE 2 MG/ML INJ IV ×4 (09:55→20:26)
--- NOTE | 2020-09-20 10:55 | PC.NURSE ---
Addendum entered by Berny Hallman R.N. 09/20/20 12:51: 1230- Spoke with Dr. Ford on rounds. Reported Qtc, BP, assessment findings. Instruction received to give add'l PRN morphine and PRN ativan to help treat pain/anxiety in hopes of bringing her BP down. Original Note: Rec'd pt in bed pulling off bipap mask. Transitioned to 2L NC (home dose) with SPO2 94%. Pt able to answer questions with slightly garbled speech (she attributes to dry mouth, able to self correct) but appropriate. Pt is drowsy but able to follow commands. She is reporting chronic pain to back and legs- requesting oxycodone. Pt noted to be increasingly drowsy and having difficulty maintaining eye opening, falling asleep mid sentence at time of med pass. Held AM meds and breakfast. Placed on bipap and repositioned for comfort. After an hour, pt is slightly more awake but still quite drowsy and unable to maintain eye opening. Called to Dr. Ford. Reported assessment findings. Instructed by MD to hold off on PO intake for now, place on bipap, administer PRN morphine for pain/air hunger. Dr. Ford states she will round ~ lunch time and review medication orders and change as needed. Call light in easy reach, bed alarm on. at bedside.
--- NOTE | 2020-09-20 11:11 | CM.DANOTE ---
DCP: Case received, EMR reviewed. Met with , Osorio, who was at bedside. Patient on BIPAP and sleeping. Introduced self and role. Was able to obtain some information from patient's spouse, regarding her baseline activity level and needs prior to hospitalization. DCP assessment completed with information currently available. Patient is a 60 year old female who admitted early this morning to the care of the hospitalist team. PCP: Dr. Ford. Payer: confirmed: [facility]. Patient came to the hospital via ambulance secondary to fall, altered mental status. had found patient on the floor in respiratory distress, and called 911. Patient is oxygen dependent at home. She has history of COPD. She also has history of alcohol abuse, and has been placed on CIWA. Her last CIWA score was 1. Patient is sleeping, and on BIPAP. Met with patient's , Osorio, who is at bedside. He is her primary life care planner, she does not drive. She uses a walker, motorized scooter, and has a wheel-chair. He also assists her with showers, and does her meals. They both reside here in [place]. Patient is also a smoker. Discussed home health briefly with , stated, she had that several years ago. Patient may also need skilled rehab, but she is currently medically unstable. If skilled is needed, she would need P.T. in order for [place] to approve. P: DCP to continue to follow. Will attempt to check in with provider, as well, regarding goals of care. Amee Newell RN/Bridge Rigger
[2020-09-20] MEDS: POTASSIUM CHLORIDE 20 MEQ/15 ML UDC 40 MEQ PO (11:20)
[2020-09-20] MEDS: SODIUM CHLORIDE 0.9% FLUSH 10 ML IV ×2 (11:21→20:22)
[2020-09-20] MEDS: VENLAFAXINE ER 75 MG CAP 150 MG PO (11:22)
--- NOTE | 2020-09-20 14:52 | DIET.PN ---
Dietary Progress Note Assessment: 60y F admitted c oxygen-dependent COPD presents with acute COPD exacerbation and respiratory failure found by on floor. Pt started on on BiPAP initially but has transitioned to nasal cannula. Referred to RD for wt loss. Pt continues to smoke. Pt reports wt loss of 40# over the course of 5 months at some point in time and has been unable to regain the weight. Pt says her does the cooking at home and will make her anything she wants to eat. Usual day: B: oatmeal and fruit or scrambled eggs, toast and meat L: [place] or soup D: Likes [place] food; typically pasta, meat or seafood, and a lot of cooked vegetables. NFPE reveals severe muscle wasting in worship, deltoid, clavicle, and lower legs. Severe fat loss globally. Pt indicates that she want to gain wt and would love to be over 100# again but it has been a long time since she has been there. Pt concerned about how to get more acidophilus in diet she feels it reduces yeast infections. Reports buying acidophilus milk is difficult to find these days. Recc trying kefir since pt doesn't enjoy yogurt. HT: 162.5 WT: 40.4kg (-25.9%, unintentional) UBW:54.54kg BMI: 15.3 (severe for age) Labs: Glucose: 176 H ABG pH: 7.27 H on admit to 7.37 today ABG pCO2: 79.2 H on admit to 61.2 today MNA: 3 (Malnourished) Justin: 16 Nutrition Diagnosis: Acute on chronic severe PCM r/t increased caloric needs secondary to COPD aeb BMI 15.3( severe), 40# unintended weight loss(-25.9%,severe) pt unable to gain, NFPE revealing severe muscle wasting in worship, deltoid, clavicle and lower legs and severe global fat loss. Interventions: 1. Recc. incorporating more healthy fats into the diet. Recc. including more peanut butter, butter, avocado oil, nuts, and seeds into the diet. Provided handout with ideas on how to choose and incorporate. Will return to explain these recc. to her tomorrow. 2. Prioritize cooked vegetables over raw to reduce respiratory stress. 3. ONS Ensure enlive if pt getting <75% needs from food. Pt is trialing a high protein high fat smoothie today Diet Order: HH/Cardiac EER: 1212kcal (30kcal/kg for severe PCM) 49g Protein (1.2g/kg for severe PCM) Monitoring/Evaluations: monitor for smoothie tolerance
[2020-09-20] MEDS: LORazepam 2 MG/ML INJ 1 MG IV ×2 (19:08→22:41)
[2020-09-20] MEDS: ATORVASTATIN 20 MG TABLET 10 MG PO (20:16)
[2020-09-20] MEDS: CYCLOBENZAPRINE 10 MG TABLET PO (20:25)
[2020-09-21] VITALS (24 sets, daily range): BP systolic 143–187; BP diastolic 68–111; PULSE 77–102; RESP 16–29; TEMP 36.4–36.7; O2SAT 91–98
[2020-09-21] MEDS: OXYCODONE IR 5 MG TABLET 20 MG PO ×5 (00:14→19:26)
[2020-09-21] MEDS: MORPHINE 2 MG/ML INJ IV ×5 (01:32→17:48)
[2020-09-21] MEDS: SODIUM CHLORIDE 0.9% FLUSH 10 ML IV ×3 (01:33→12:14)
[2020-09-21] MEDS: ALBUTEROL/IPRATROPIUM 3 ML AMPUL INH ×4 (03:06→19:31)
[2020-09-21] MEDS: LORazepam 2 MG/ML INJ 1 MG IV (03:23)
[2020-09-21 04:57] LABS: Add Manual Diff / Slide Review NO; Basophils Absolute Auto 0 /uL (0-100); Basophils Percent Auto 0.4 % (0-2); Eosinophils Absolute Auto 0 /uL (0-450); Eosinophils Percent Auto 0.1 % (2-4); Hematocrit 33.9 % (36-46); Hemoglobin 10.8 g/dL (12.0-16.0); Lymphocytes Absolute Auto 1200 /uL (1100-4500); Lymphocytes Percent Auto 20.9 % (25-40); Mean Corpuscular HGB Conc 31.7 % (30-36); Mean Corpuscular Hemoglobin 28.9 PG (26-34); Monocytes Absolute Auto 800 /uL (0-900); Monocytes Percent Auto 13.7 % (3-14); Neutrophils Absolute Auto 3900 /uL (1500-7000); Neutrophils Percent Auto 64.9 % (50-75); Platelet Count 178 X10^3/uL (150-400); Red Blood Cell Count 3.73 X10^6/uL (4.0-5.2); Red Cell Distribution Width 13.9 % (11.6-14.8)
[2020-09-21 05:19] LABS: Alanine Aminotransferase 22 IU/L (<35); Albumin 3.4 g/dL (3.5-5.0); Albumin Globulin Ratio 1.2 (1.0-2.8); Alkaline Phosphatase 89 U/L (38-126); Aspartate Aminotransferase 29 IU/L (14-36); BUN Creatinine Ratio 25.9 (6-22); Bilirubin Total 0.4 mg/dL (0.2-1.3); Blood Urea Nitrogen 15 mg/dL (7-17); Calcium 8.5 mg/dL (8.4-10.2); Chloride 96 mmol/L (98-107); Estimated Glomerular Filt Rate > 60.0 mL/min (>60); Globulin 2.9 g/dL (1.7-4.1); Glucose 122 mg/dL (80-110); Sodium 136 mmol/L (137-145); Total Protein 6.3 g/dL (6.3-8.2)
[2020-09-21 05:25] LABS: Carbon Dioxide 38 mmol/L (22-32); HEMOLYSIS < 15 (0-50)
[2020-09-21 05:29] LABS: NT-proBNP (BNP-Adult 18+) 1570 pg/mL (<125)
--- NOTE | 2020-09-21 06:52 | PC.NURSE ---
Data Collection Associate Note-Patient did not use Bi-pap overnight, remained on 2L NC with minimal shortness of breath, mostly only during activity. RR 20s. She is very impulsive with moderate tremors when up to BSC. CIWA 5-10 d/t the tremors and anxiety, A/Ox3. Prn 20mg oxycodone given x2 for chronic pain, 2mg IV morphine given x2 for pain and dyspnea, 1mg IV Ativan given once for anxiety, all have been affective.
--- NOTE | 2020-09-21 07:04 | PM.PN.1 ---
Subjective Subjective Date Patient Seen: 09/21/20 Time Patient Seen: 07:04 Interval history: Had an uneventful night, breathing better. Blood pressures remains elevated. Has been tolerating full diet with no nausea or vomiting. Was able to get her pain under a little better control yesterday. Has been ambulating up to bathroom but very weak and IV lines compromised during transfers, nursing asking for ordoñez. Exam Vital Signs (past 8 hours): - 09/21/20 00:00 09/21/20 03:06 09/21/20 04:38 Temperature 97.9 F 97.5 F L Pulse Rate 87 102 H 94 H Respiratory Rate 24 18 18 Blood Pressure 187/97 H 184/91 H Pulse Oximetry 91 97 94 Fraction of Inspired Oxygen 28 Oxygen Delivery Method Nasal Cannula Oxygen Flow Rate 4 Narrative Exam Narrative: GENERAL: Alert and oriented, appearing stated age and in no acute distress. HEENT: Head normocephalic/atraumatic. Pupils equal, round, and reactive to light and accomodation. Extraocular muscles intact. Tympanic membranes clear. Nasal mucosa moist, septum midline. Oral mucosa moist, no lesions. Neck soft and supple, no lymphadenopathy. LUNGS: Diminished inspiratory effort, no audible wheezes, rhonchi, or rales. CV: Normal S1 and S2 with regular rate and rhythm, no audible murmurs, rubs or gallops. ABDOMEN: Soft, non-tender, non-distended, no organomegaly. Positive bowel sounds. EXTREMITIES: No clubbing, cyanosis, or edema. NEURO: Cranial nerves II through XII grossly intact, no focal deficits. PSYCH: Alert and oriented x 3. SKIN: No concerning lesions. Objective Labs Result Diagrams: 09/21/20 04:40 09/21/20 04:40 Labs: Laboratory Results - last 24 hr 09/20/20 09/20/20 09/20/20 02:17 08:04 08:04 WBC 4.5 RBC 4.18 Hgb 12.1 Hct 38.1 MCV 91.2 MCH 29.1 MCHC 31.9 RDW 14.1 Plt Count 195 Neut % (Auto) 90.0 H Lymph % (Auto) 7.5 L [place] % (Auto) 2.1 L Eos % (Auto) 0.0 L Baso % (Auto) 0.4 Neut # (Auto) 4100 Lymph # (Auto) 300 L [place] # (Auto) 100 Eos # (Auto) 0 Baso # (Auto) 0 ABG pH 7.36 ABG pCO2 61.2 H* ABG pO2 63 L ABG HCO3 35 H ABG Total CO2 36 H ABG O2 Saturation 90 L ABG Base Excess 9.0 H FiO2 28 Sodium Potassium Chloride Carbon Dioxide BUN Creatinine Estimated GFR BUN/Creatinine Ratio Glucose Calcium Total Bilirubin AST ALT Alkaline Phosphatase NT-Pro-B Natriuret Pep 612 H Total Protein Albumin Globulin Albumin/Globulin Ratio 09/20/20 09/21/20 09/21/20 08:04 04:40 04:40 WBC 6.0 RBC 3.73 L Hgb 10.8 L Hct 33.9 L MCV 91.0 MCH 28.9 MCHC 31.7 RDW 13.9 Plt Count 178 Neut % (Auto) 64.9 D Lymph % (Auto) 20.9 L [place] % (Auto) 13.7 Eos % (Auto) 0.1 L Baso % (Auto) 0.4 Neut # (Auto) 3900 Lymph # (Auto) 1200 [place] # (Auto) 800 Eos # (Auto) 0 Baso # (Auto) 0 ABG pH ABG pCO2 ABG pO2 ABG HCO3 ABG Total CO2 ABG O2 Saturation ABG Base Excess FiO2 Sodium 137 136 L Potassium 3.2 L 3.0 L Chloride 93 L 96 L Carbon Dioxide 39 H 38 H BUN 16 15 Creatinine 0.59 0.58 Estimated GFR > 60.0 > 60.0 BUN/Creatinine Ratio 27.1 H 25.9 H Glucose 176 H 122 H Calcium 8.7 8.5 Total Bilirubin 0.4 0.4 AST 42 H 29 ALT 28 22 Alkaline Phosphatase 128 H 89 NT-Pro-B Natriuret Pep 1570 H Total Protein 7.6 6.3 Albumin 4.2 3.4 L Globulin 3.4 2.9 Albumin/Globulin Ratio 1.2 1.2 Assessment & Plan Assessment & Plan narrative: 1. COPD exacerbation Plan: Amoxicillin, prednisone, albuterol, DuoNebs, Spiriva, and Advair. RT consulting. Continue BiPAP and oxygen therapy as needed. 2. Acute hypoxic respiratory failure Plan: Please see #1. 3. Elevated D-dimer -CT angiogram/LE duplex US negative Plan: Prophylactic Lovenox. 4. Elevated BNP, trending up -365 --> 612 --> 1570 -Maintenance fluilds were not ordered upon transfer to ICU but were kept running from ED. Plan: Have hep-locked IVF. Will give lasix 80 mg IV x 1 now. 5. Electrolyte derangement, chronic -baseline sodium: 135 -baseline chloride: 90 -baseline bicarbonate: 36 -history of hypokalemia, corrected with 60 mEq of potassium daily. Plan: Electrolyte derangement is multifactorial but largely from her chronic COPD. Will increase potassium to 60 meq daily supplementation and trend labs. 6. Hypomagnesemia, new -Mg 1.0 Plan: Will replete with 2 mg IV and trend labs. 7. Orthostatic hypotension -Currently hypertensive, likely due to uncontrolled pain, anxiety, and respiratory distress. Plan: Treating underlying pain and anxiety. Will give lasix as noted above and watch closely. May need something chronic, if so, will try clonidine 0.1 mg PO BID with titration for it's adjunctive pain properties. 8. Hyperlipidemia, chronic Plan: Continue atorvastatin 10 mg p.o. q.day. 9. History of alcohol use, 4 large glasses of wine daily Plan: CIWA protocol. 10. Tobacco use, 60 pack-year history Plan: Nicoderm 7 mg patch. 11. Depression/anxiety/panic attacks Plan: Continue venlafaxine ER 150 mg p.o. q.day. 12. Weakness, fall risk Plan: Vandana PT. Code: Full DVT prophylaxis: Lovenox GI prophylaxis: Protonix COVID: Negative on 09/14/2020 Quality VTE Deep Vein Thrombosis/Pulmonary Embolism Present on Admission: No
[2020-09-21] MEDS: TIOTROPIUM BROMIDE 18 MCG INHALER INH (08:06)
[2020-09-21] MEDS: FLUTICASONE/SALMETEROL 250/50 60 PUFF DISKUS INH ×2 (08:06→19:31)
[2020-09-21] MEDS: POTASSIUM CHLORIDE 20 MEQ/15 ML UDC 60 MEQ PO (08:46)
[2020-09-21] MEDS: predniSONE 20 MG TABLET 40 MG PO (08:48)
[2020-09-21] MEDS: THIAMINE 100 MG TABLET PO (08:48)
[2020-09-21] MEDS: LORazepam 2 MG/ML INJ 0.5 MG IV (08:48)
[2020-09-21] MEDS: DOCUSATE 100 MG CAPSULE PO (08:48)
[2020-09-21] MEDS: ENOXAPARIN 40 MG/0.4 ML SYRINGE SUBCUT (08:49)
[2020-09-21] MEDS: NICOTINE 7 MG PATCH TOP (08:50)
[2020-09-21] MEDS: MULTIVITAMIN 1 TABLET 1 TAB PO (08:50)
[2020-09-21] MEDS: FOLIC ACID 1 MG TABLET PO (08:50)
[2020-09-21] MEDS: MAGNESIUM SULFATE 2 GM/50 ML PIGGYBACK IV ×2 (08:55→17:05)
[2020-09-21] MEDS: AMOXICILLIN 250 MG CAPSULE 500 MG PO ×3 (08:56→21:18)
[2020-09-21] MEDS: VENLAFAXINE ER 75 MG CAP 150 MG PO (08:56)
[2020-09-21] MEDS: FUROSEMIDE 100 MG/10 ML VIAL 80 MG IV (09:02)
[2020-09-21] MEDS: LORazepam 2 MG/ML INJ IV ×4 (10:00→21:21)
--- NOTE | 2020-09-21 11:58 | RT ---
PER RN, PT WORE BIPAP FOR APPROX. 15 MINUTES WHEN PLACED BACK ON AT APPROX. 0820 (NOT SHASHI).
[2020-09-21] MEDS: HALOPERIDOL 5 MG/ML VIAL 2 MG IV ×2 (12:11→17:17)
--- NOTE | 2020-09-21 12:29 | PC.NURSE ---
Addendum entered by Steph Siddiqui R.N. 09/21/20 15:04: 2 new iv sites due to infiltration-and present ciwa 5- pt was able to tolerate bipap 16/8 28%fio2 x 3 .5 hour Original Note: PT INITIAL ASSESSMENT PT WAS ONLY SLIGHTLY ANXIOUS AND FIDGETY- SHE HAD OBVIOUS SIGNS OF INCREASED WORK OF BREATHING - PURSED LIPS TACHYCARDIA SPEECH IN ONLY FEW WORD- MEDICATED WITH 2MG IV MORPHINE ALONG WITH HER OTHER AM MEDICATIONS ( WHICH INCLUDED HER PO OXYDCODONE) and pt was able to finish her large breakfast and prior to giving her 80mg of iv lasix a ordoñez catheter was placed per md order. her activity and anxiety continued to escalated requiirng iv lorzepam to be given per ciwa - it was minimally effective and required repeat dose- she was unwilling or unable to tolerate bipap at this time- she was wrapping all leads and iv lines all around her arms/body- her agitation was extreme- and iv access lost - able to restart iv x 2 and administered iv haldol which has been effective and we've been able to replace bipap for now
--- NOTE | 2020-09-21 12:32 | CM.DPC ---
DCP Cont: Checked in with Steph, [facility] taking care of patient. Patient has CIWA score ranging from 10-13, and has been given medication to combat agitation. had been at bedside earlier. Stated that she would drink approximately 4 glasses of wine daily. P: DCP to follow closely. Anticipate that patient will be here for a few more days. Will see if patient's status changes to inpatient, for half-way may be a possibility for patient. Patient is not medically stable to work with P.T. as of yet. Amee Newell, ALEJANDRA/Methods Time Analyst
[2020-09-21] MEDS: cloNIDine 0.1 MG TABLET PO (14:50)
[2020-09-21 15:47] LABS: HEMOLYSIS < 15 (0-50); Magnesium 1.3 mg/dL (1.6-2.3)
[2020-09-21 15:59] LABS: Potassium 2.6 mmol/L (3.4-5.1)
[2020-09-21] MEDS: POTASSIUM CHLORIDE 60 MEQ in SODIUM CHLORIDE 0.9% 500 ML 88.333 ML IV (17:05)
--- NOTE | 2020-09-21 17:57 | PC.NURSE ---
1600 Critical lab call, Potassium 2.6, Magnesium 1.3, Dr. Ford notified, new orders for replacement placed.
[2020-09-21] MEDS: ATORVASTATIN 20 MG TABLET 10 MG PO (21:18)
[2020-09-21] MEDS: CYCLOBENZAPRINE 10 MG TABLET PO (21:19)
[2020-09-21] MEDS: cloNIDine 0.1 MG TABLET 0.2 MG PO (21:19)
[2020-09-21 22:44] LABS: BUN Creatinine Ratio 29.2 (6-22); Blood Urea Nitrogen 19 mg/dL (7-17); Calcium 8.5 mg/dL (8.4-10.2); Chloride 96 mmol/L (98-107); Estimated Glomerular Filt Rate > 60.0 mL/min (>60); Glucose 136 mg/dL (80-110); HEMOLYSIS < 15 (0-50); Phosphorous 3.1 mg/dL (2.8-4.1); Potassium 3.6 mmol/L (3.4-5.1); Sodium 135 mmol/L (137-145)
[2020-09-21 22:45] LABS: Magnesium 2.3 mg/dL (1.6-2.3)
[2020-09-21 22:51] LABS: Carbon Dioxide 37 mmol/L (22-32)
[2020-09-22] VITALS (52 sets, daily range): BP systolic 126–183; BP diastolic 74–110; PULSE 72–113; RESP 12–35; TEMP 35.9–36.7; O2SAT 83–100
[2020-09-22] MEDS: MORPHINE 2 MG/ML INJ IV ×5 (00:46→14:33)
[2020-09-22] MEDS: LORazepam 2 MG/ML INJ IV ×7 (00:47→15:09)
--- NOTE | 2020-09-22 01:07 | PC.NURSE ---
Addendum entered by Steph Siddiqui R.N. 09/22/20 06:43: pt states :let me then when attempting to replace nasal cannula and spo2 82% with obvious increased work of breathing- refused am labs this am - will contact lab later this am for draw Addendum entered by Steph Siddiqui R.N. 09/22/20 03:29: PT REMOVED BIPAP MASK AND APPARENTLY BROKE MASK UPON TEARING IT FROM HER FACE- PLACED ON 2L NC WITH SPO2 100%- PT DEMONSTRATED PARANOID BEHAVIOR AT THIS TIME- STATING I DON'T TRUST YOU- YOU'RE TRYING TO KILL ME VERBALLY REASSURED PT AND VS TAKEN AND ALLOWED TO RESUME SLEEP Original Note: PT WITH INCREASING AGITATION - PICKING AT IV LINES ATTEMPTING TO REMOVE BIPAP- THRASHING ABOUT IN BED- SHE REPORTED PAIN EVERYWHERE AND ALSO DEMONSTRATED INCREASED WORK LOAD OF BREATHING EVIDENCED BY PURSED LIP/TACHYPNEA/USE OF ACCESSORY MUSCLES- MEDICATED AT THIS TIME WITH 2MG IV MORPHINE WELL 2MG IV LORAZEPAM FOR CIWA SCORE OF 12- RESTING AT THIS TIME WITH HR NSR 85, RR 19-24 ON BIPAP AT 28% FIO2 AND PRESSURES OF 16/8- CLEANING REMAINS PATENT
--- NOTE | 2020-09-22 06:18 | PM.PN.1 ---
Subjective Subjective Date Patient Seen: 09/22/20 Time Patient Seen: 06:18 Interval history: Uneventful night. Patient reports that her breathing is still labored but getting better. She is compliant with BiPAP at night. Still feels very weak, Ross in place. Pain control continues to be problem for her; she does have chronic pain and often reports her pain as >8/10. She has received ativan per [facility] protocol with no signs of withdrawal. Clonidine was added as an adjunctive therapy as well as antihypertensive agent yesterday, currently being titrated. Exam Vital Signs (past 8 hours): - 09/22/20 00:00 09/22/20 01:05 09/22/20 03:28 Temperature 96.7 F L Pulse Rate 80 85 83 Respiratory Rate 24 24 15 Blood Pressure 165/97 H 183/110 H Pulse Oximetry 97 100 09/22/20 04:34 09/22/20 05:47 Temperature 97.1 F L Pulse Rate 82 87 Respiratory Rate 12 23 Blood Pressure 163/92 H Pulse Oximetry 100 Fraction of Inspired Oxygen 28 Oxygen Delivery Method BiPAP Oxygen Flow Rate 2 Narrative Exam Narrative: GENERAL: Alert and oriented, appearing stated age and in no acute distress. HEENT: Head normocephalic/atraumatic. Pupils equal, round, and reactive to light and accomodation. Extraocular muscles intact. Tympanic membranes clear. Nasal mucosa moist, septum midline. Oral mucosa moist, no lesions. Neck soft and supple, no lymphadenopathy. LUNGS: Able to move more air today, now hearing expiratory wheezes throughout with no rales. CV: Normal S1 and S2 with regular rate and rhythm, no audible murmurs, rubs or gallops. ABDOMEN: Soft, non-tender, non-distended, no organomegaly. Positive bowel sounds. EXTREMITIES: No clubbing, cyanosis, or edema. NEURO: Cranial nerves II through XII grossly intact, no focal deficits. PSYCH: Alert and oriented x 3. SKIN: No concerning lesions. Objective Labs Result Diagrams: 09/22/20 08:00 09/22/20 08:00 Labs: Laboratory Results - last 24 hr 09/21/20 09/21/20 09/21/20 04:40 15:20 22:25 Sodium Potassium 2.6 L* Chloride Carbon Dioxide BUN Creatinine Estimated GFR BUN/Creatinine Ratio Glucose Calcium Phosphorus Magnesium 1.0 L 1.3 L 2.3 09/21/20 22:25 Sodium 135 L Potassium 3.6 Chloride 96 L Carbon Dioxide 37 H BUN 19 H Creatinine 0.65 Estimated GFR > 60.0 BUN/Creatinine Ratio 29.2 H Glucose 136 H Calcium 8.5 Phosphorus 3.1 Magnesium Assessment & Plan Assessment & Plan narrative: 1. COPD exacerbation, improving Plan: Amoxicillin, prednisone, albuterol, DuoNebs, Spiriva, and Advair. RT consulting. Continue BiPAP and oxygen therapy as needed. 2. Acute hypoxic respiratory failure Plan: Please see #1. 3. Elevated D-dimer -CT angiogram/LE duplex US negative Plan: Prophylactic Lovenox. 4. Elevated BNP, trending down -365 --> 612 --> 1570 --> 931 -Maintenance fluilds were not ordered upon transfer to ICU but were kept running from ED. -IVF now hep-locked -Status post lasix 80 mg IV x 1 on 09/21/20 Plan: Will trend labs. 5. Electrolyte derangement, chronic -baseline sodium: 135 -baseline chloride: 90 -baseline bicarbonate: 36 -history of hypokalemia, corrected with 60 mEq of potassium daily. Patient had critically low potassium yesterday, 2.6, normalized to 3.6 after repletion, now 2.8 again this morning. Plan: Electrolyte derangement is multifactorial but largely from her chronic COPD. Will give another potassium 60 meq IV and recheck labs this afternoon. 6. Hypomagnesemia, resolved -Mg 1.0 --> 2.3 after repletion on 09/21/20 --> 1.7 Plan: Will trend labs. 7. Orthostatic hypotension -Currently hypertensive, likely due to uncontrolled pain, anxiety, and respiratory distress. Plan: Treating underlying pain and anxiety. Will continue clonidine 0.3 mg PO BID with titration for it's adjunctive pain properties. 8. Hyperlipidemia, chronic Plan: Continue atorvastatin 10 mg p.o. q.day. 9. History of alcohol use, 4 large glasses of wine daily Plan: CIWA protocol. 10. Tobacco use, 60 pack-year history Plan: Nicoderm 7 mg patch. 11. Depression/anxiety/panic attacks Plan: Continue venlafaxine ER 150 mg p.o. q.day. 12. Weakness, fall risk Plan: Vandana PT. Code: Full DVT prophylaxis: Lovenox GI prophylaxis: Protonix COVID: Negative on 09/14/2020 Quality VTE Deep Vein Thrombosis/Pulmonary Embolism Present on Admission: No
[2020-09-22 08:21] LABS: Add Manual Diff / Slide Review NO; Basophils Absolute Auto 0 /uL (0-100); Basophils Percent Auto 0.5 % (0-2); Eosinophils Absolute Auto 100 /uL (0-450); Eosinophils Percent Auto 0.9 % (2-4); Hematocrit 34.9 % (36-46); Hemoglobin 11.2 g/dL (12.0-16.0); Lymphocytes Absolute Auto 1600 /uL (1100-4500); Lymphocytes Percent Auto 26.6 % (25-40); Mean Corpuscular HGB Conc 32.2 % (30-36); Mean Corpuscular Hemoglobin 29.4 PG (26-34); Mean Corpuscular Volume 91.2 fL (80-100); Monocytes Absolute Auto 700 /uL (0-900); Monocytes Percent Auto 11.7 % (3-14); Neutrophils Absolute Auto 3700 /uL (1500-7000); Neutrophils Percent Auto 60.3 % (50-75); Platelet Count 170 X10^3/uL (150-400); Red Blood Cell Count 3.83 X10^6/uL (4.0-5.2); Red Cell Distribution Width 13.8 % (11.6-14.8); White Blood Cell Count 6.2 X10^3/uL (4.5-11.0)
[2020-09-22] MEDS: OXYCODONE IR 5 MG TABLET 20 MG PO ×3 (08:21→20:43)
[2020-09-22 08:29] LABS: Alanine Aminotransferase 25 IU/L (<35); Albumin 3.4 g/dL (3.5-5.0); Albumin Globulin Ratio 1.2 (1.0-2.8); Alkaline Phosphatase 89 U/L (38-126); Aspartate Aminotransferase 37 IU/L (14-36); BUN Creatinine Ratio 30.8 (6-22); Bilirubin Total 0.5 mg/dL (0.2-1.3); Blood Urea Nitrogen 16 mg/dL (7-17); Calcium 8.8 mg/dL (8.4-10.2); Chloride 94 mmol/L (98-107); Estimated Glomerular Filt Rate > 60.0 mL/min (>60); Globulin 2.8 g/dL (1.7-4.1); Glucose 91 mg/dL (80-110); HEMOLYSIS < 15 (0-50); Potassium 2.8 mmol/L (3.4-5.1); Sodium 135 mmol/L (137-145); Total Protein 6.2 g/dL (6.3-8.2)
[2020-09-22 08:37] LABS: NT-proBNP (BNP-Adult 18+) 931 pg/mL (<125)
[2020-09-22 08:38] LABS: Carbon Dioxide 39 mmol/L (22-32)
[2020-09-22] MEDS: POTASSIUM CHLORIDE 30 MEQ in SODIUM CHLORIDE 0.9% 250 ML 88.333 ML IV (09:19)
[2020-09-22] MEDS: TIOTROPIUM BROMIDE 18 MCG INHALER INH (09:24)
[2020-09-22] MEDS: ALBUTEROL/IPRATROPIUM 3 ML AMPUL INH ×3 (09:24→19:13)
[2020-09-22] MEDS: FLUTICASONE/SALMETEROL 250/50 60 PUFF DISKUS INH ×2 (09:25→19:17)
[2020-09-22] MEDS: cloNIDine 0.1 MG TABLET 0.3 MG PO ×2 (09:26→20:24)
[2020-09-22] MEDS: THIAMINE 100 MG TABLET PO (09:26)
[2020-09-22] MEDS: FOLIC ACID 1 MG TABLET PO (09:26)
[2020-09-22] MEDS: predniSONE 20 MG TABLET 40 MG PO (09:27)
[2020-09-22] MEDS: POTASSIUM CHLORIDE 20 MEQ/15 ML UDC 60 MEQ PO (09:28)
[2020-09-22] MEDS: SODIUM CHLORIDE 0.9% FLUSH 10 ML IV ×2 (09:28→20:26)
[2020-09-22] MEDS: MULTIVITAMIN 1 TABLET 1 TAB PO (09:29)
[2020-09-22] MEDS: AMOXICILLIN 250 MG CAPSULE 500 MG PO ×3 (09:30→20:23)
[2020-09-22] MEDS: VENLAFAXINE ER 75 MG CAP 150 MG PO (09:30)
[2020-09-22 10:50] LABS: Magnesium 1.7 mg/dL (1.6-2.3)
[2020-09-22] MEDS: ENOXAPARIN 40 MG/0.4 ML SYRINGE SUBCUT (11:24)
--- NOTE | 2020-09-22 13:53 | PC.NURSE ---
Addendum entered by Maria Pappas R.N. 09/22/20 15:25: Pt medicated with Ativan 2mg @ 1500, CIWA remains elevated, and Pt states, I will wear the mask if I can relax Original Note: Am shift Pt has had worsening CIWA scores this shift, Ativan given per Emar. Pt mentation waxes and wanes. Currently confused, unsure of where she is staying, clear on name and . Hallucinations mid shift, concerns about crying child out side of window. Reassured. You all think I am crazy now Education provided re: ETOH and delirium. Update to spouse at bedside. Pt refusing bipap most of shift, NC with 3L. RT following. K + rider infusing, slowly, as Pt having difficulty tolerating. PO K+ replacement given as well. Tele remains ST/NSR. Chronic pain Medicated per emar. Lungs are dim, with SOB with extended conversation, or any bed mobility. Ross patent. Unsigned POLST for clarification about Code status. Call Into Dr Ford for updated order.
[2020-09-22] MEDS: POTASSIUM CHLORIDE 30 MEQ in SODIUM CHLORIDE 0.9% 250 ML 40 ML IV (15:24)
--- NOTE | 2020-09-22 18:02 | PC.NURSE ---
Seizure pads not placed on bed as patient complains they make her feel clostrophobic, pt observed closely
[2020-09-22 20:03] LABS: BUN Creatinine Ratio 29.7 (6-22); Blood Urea Nitrogen 27 mg/dL (7-17); Calcium 8.7 mg/dL (8.4-10.2); Carbon Dioxide 37 mmol/L (22-32); Chloride 97 mmol/L (98-107); Estimated Glomerular Filt Rate > 60.0 mL/min (>60); Glucose 126 mg/dL (80-110); HEMOLYSIS < 15 (0-50); Sodium 132 mmol/L (137-145)
[2020-09-22 20:04] LABS: Potassium 5.5 mmol/L (3.4-5.1)
[2020-09-22] MEDS: ATORVASTATIN 20 MG TABLET 10 MG PO (20:24)
[2020-09-22] MEDS: DOCUSATE 100 MG CAPSULE PO (20:25)
--- NOTE | 2020-09-22 22:15 | PC.NURSE ---
Shift Note: Pt has been alert and oriented x3 while awake. Some confusion noted when she wakes from sleep but is quickly reoriented. IVs x2 saline locked after KCL rider completed. Wearing bipap when asleep without difficulty, off while awake. Medicated x2 this shift for pain 07/03, she states this is her usual. Ross to bag draining small amt dark allison urine, only 125ml this shift. CIWA = 0-1 this shift, has not required ativan.
[2020-09-23] VITALS (21 sets, daily range): BP systolic 127–164; BP diastolic 73–98; PULSE 10–107; RESP 12–32; TEMP 36.3–37.6; O2SAT 83–99
--- NOTE | 2020-09-23 03:56 | PC.NURSE ---
Pt aggressive upon waking, stating let me sleep and shut up and get out of here while attempting to hit this RN. Boundaries set. After a few minutes pass patient appears more coherent and apologizes. She reports having a sleep disorder and states she needs a few minutes to wake up and realize where she is. Agreed to approach with caution next time. VSS, Sp02 95-99% on 2LNC with end tidal C02 35-40. Breathing is even and unlabored. Bed alarm active.
[2020-09-23 04:53] LABS: Add Manual Diff / Slide Review NO; Basophils Absolute Auto 0 /uL (0-100); Basophils Percent Auto 0.7 % (0-2); Eosinophils Absolute Auto 100 /uL (0-450); Eosinophils Percent Auto 1.3 % (2-4); Hematocrit 34.2 % (36-46); Hemoglobin 11.1 g/dL (12.0-16.0); Lymphocytes Absolute Auto 1600 /uL (1100-4500); Lymphocytes Percent Auto 23.3 % (25-40); Mean Corpuscular HGB Conc 32.4 % (30-36); Mean Corpuscular Hemoglobin 29.5 PG (26-34); Mean Corpuscular Volume 91.1 fL (80-100); Monocytes Absolute Auto 800 /uL (0-900); Monocytes Percent Auto 11.9 % (3-14); Neutrophils Absolute Auto 4200 /uL (1500-7000); Neutrophils Percent Auto 62.8 % (50-75); Platelet Count 173 X10^3/uL (150-400); Red Blood Cell Count 3.75 X10^6/uL (4.0-5.2); Red Cell Distribution Width 13.6 % (11.6-14.8); White Blood Cell Count 6.6 X10^3/uL (4.5-11.0)
[2020-09-23 05:03] LABS: Alanine Aminotransferase 24 IU/L (<35); Albumin 3.2 g/dL (3.5-5.0); Albumin Globulin Ratio 1.1 (1.0-2.8); Alkaline Phosphatase 75 U/L (38-126); Aspartate Aminotransferase 31 IU/L (14-36); BUN Creatinine Ratio 42.6 (6-22); Bilirubin Total 0.5 mg/dL (0.2-1.3); Blood Urea Nitrogen 26 mg/dL (7-17); Calcium 8.8 mg/dL (8.4-10.2); Carbon Dioxide 36 mmol/L (22-32); Chloride 96 mmol/L (98-107); Estimated Glomerular Filt Rate > 60.0 mL/min (>60); Globulin 2.8 g/dL (1.7-4.1); Glucose 105 mg/dL (80-110); HEMOLYSIS < 15 (0-50); Potassium 3.1 mmol/L (3.4-5.1); Sodium 133 mmol/L (137-145)
[2020-09-23 05:11] LABS: Magnesium 1.4 mg/dL (1.6-2.3); NT-proBNP (BNP-Adult 18+) 907 pg/mL (<125); Phosphorous 3.2 mg/dL (2.8-4.1)
[2020-09-23] MEDS: OXYCODONE IR 5 MG TABLET 20 MG PO ×4 (06:14→20:32)
[2020-09-23] MEDS: ALBUTEROL/IPRATROPIUM 3 ML AMPUL INH ×2 (07:49→21:15)
[2020-09-23] MEDS: TIOTROPIUM BROMIDE 18 MCG INHALER INH (07:56)
[2020-09-23] MEDS: FLUTICASONE/SALMETEROL 250/50 60 PUFF DISKUS INH ×2 (07:56→21:14)
[2020-09-23] MEDS: POTASSIUM CHLORIDE 20 MEQ/15 ML UDC 60 MEQ PO (08:41)
[2020-09-23] MEDS: predniSONE 20 MG TABLET 40 MG PO (08:47)
[2020-09-23] MEDS: cloNIDine 0.1 MG TABLET 0.3 MG PO ×2 (08:47→20:31)
[2020-09-23] MEDS: FOLIC ACID 1 MG TABLET PO (08:47)
[2020-09-23] MEDS: DOCUSATE 100 MG CAPSULE PO ×2 (08:48→20:32)
[2020-09-23] MEDS: THIAMINE 100 MG TABLET PO (08:48)
[2020-09-23] MEDS: MULTIVITAMIN 1 TABLET 1 TAB PO (08:49)
[2020-09-23] MEDS: AMOXICILLIN 250 MG CAPSULE 500 MG PO ×3 (08:49→20:31)
[2020-09-23] MEDS: ENOXAPARIN 40 MG/0.4 ML SYRINGE SUBCUT (08:49)
--- NOTE | 2020-09-23 09:24 | PM.PN.1 ---
Subjective Subjective Date Patient Seen: 09/23/20 Time Patient Seen: 09:24 Interval history: Patient seen and evaluated had a tough day yesterday. With the alcohol withdrawal signs and symptoms. . Received about 7 mg of lorazepam to help get her through. Things started clearing last night. Did not need much medicine throughout the evening. Nurses states that she is doing much better this morning. She is generally weak at home. Does not do much. Is on chronic oxygen. She is a little bit to confused this morning and not at her baseline. Partner is sitting at bedside with her. She says has not been a good year. Specially with her breathing. She is eating a little bit this morning. Has not got out of bed much she says she would like to try sitting in a chair. Still has a catheter in. Exam Vital Signs (past 8 hours): - 09/23/20 02:53 09/23/20 04:58 09/23/20 07:50 Temperature 97.4 F L Pulse Rate 75 84 99 H Respiratory Rate 12 19 20 Blood Pressure 148/82 H Pulse Oximetry 98 94 95 09/23/20 08:00 Temperature 98.0 F Pulse Rate 101 H Respiratory Rate 22 Blood Pressure 127/73 Pulse Oximetry 94 Fraction of Inspired Oxygen 28 Oxygen Delivery Method Nasal Cannula Oxygen Flow Rate 3 Narrative Exam Narrative: Gen.: She knows she is at the hospital confused with the the date and time HEENT: Pupils equal round and reactive or mucosa is moist neck is supple Cardio: S1-S2 regular rate and rhythm no murmurs appreciated. Respiratory: Lungs showed decreased breath sounds throughout. With some fine respiratory crackles and rhonchi Abdomen: Soft nontender no rebound or guarding no liver spleen enlargement no appreciable hernias Extremities: Full range of motion no appreciable weakness no cyanosis or edema. Neurologic: Grossly intact. Objective Labs Result Diagrams: 09/23/20 04:30 09/23/20 04:30 Labs: Laboratory Results - last 24 hr 09/22/20 09/22/20 09/23/20 08:00 19:45 04:30 WBC 6.6 RBC 3.75 L Hgb 11.1 L Hct 34.2 L MCV 91.1 MCH 29.5 MCHC 32.4 RDW 13.6 Plt Count 173 Neut % (Auto) 62.8 Lymph % (Auto) 23.3 L [place] % (Auto) 11.9 Eos % (Auto) 1.3 L Baso % (Auto) 0.7 Neut # (Auto) 4200 Lymph # (Auto) 1600 [place] # (Auto) 800 Eos # (Auto) 100 Baso # (Auto) 0 Sodium 132 L Potassium 5.5 H D Chloride 97 L Carbon Dioxide 37 H BUN 27 H Creatinine 0.91 Estimated GFR > 60.0 BUN/Creatinine Ratio 29.7 H Glucose 126 H Calcium 8.7 Phosphorus Magnesium 1.7 Total Bilirubin AST ALT Alkaline Phosphatase NT-Pro-B Natriuret Pep Total Protein Albumin Globulin Albumin/Globulin Ratio 09/23/20 09/23/20 04:30 04:30 WBC RBC Hgb Hct MCV MCH MCHC RDW Plt Count Neut % (Auto) Lymph % (Auto) [place] % (Auto) Eos % (Auto) Baso % (Auto) Neut # (Auto) Lymph # (Auto) [place] # (Auto) Eos # (Auto) Baso # (Auto) Sodium 133 L Potassium 3.1 L D Chloride 96 L Carbon Dioxide 36 H BUN 26 H Creatinine 0.61 Estimated GFR > 60.0 BUN/Creatinine Ratio 42.6 H Glucose 105 Calcium 8.8 Phosphorus 3.2 Magnesium 1.4 L Total Bilirubin 0.5 AST 31 ALT 24 Alkaline Phosphatase 75 NT-Pro-B Natriuret Pep 907 H Total Protein 6.0 L Albumin 3.2 L Globulin 2.8 Albumin/Globulin Ratio 1.1 Assessment & Plan Assessment & Plan narrative: Acute respiratory failure improving. Patient with oxygen nasal cannula and BiPAP at night. Respiratory failure is definitely improved. COPD exacerbation as a cause of her acute respiratory failure continue with amoxicillin prednisone albuterol DuoNebs Spiriva and Advair. Continue with RT and BiPAP and oxygen as needed. Acute alcohol withdrawal with confusion and delirium and encephalopathy. Improving today required multiple doses of lorazepam yesterday. As patient was quite confused and disoriented. Nursing states she is much better this morning. Her scoring is down to 4. Will schedule lorazepam 0.5 mg p.o. today to help with this. Much improved. Hypokalemia. Continue with potassium replacement. Hyponatremia chronic and at baseline. Depression anxiety. Continue with phenyl faxing. Tobacco use. Counseling provided continue with Nicoderm patch. Generalized weakness decreased appetite physical therapy referral Ross catheter removed patient improving. Alcohol withdrawal his certainly complicated her care. Quality VTE Deep Vein Thrombosis/Pulmonary Embolism Present on Admission: No
[2020-09-23] MEDS: VENLAFAXINE ER 75 MG CAP 150 MG PO (11:03)
[2020-09-23] MEDS: SODIUM CHLORIDE 0.9% FLUSH 10 ML IV ×2 (11:08→20:33)
[2020-09-23] MEDS: LORazepam 0.5 MG TABLET PO (12:42)
--- NOTE | 2020-09-23 12:43 | PC.NURSE ---
AM shift Pt is a/o x4 this am, CIWA is 4, Pt feels clearer than she has since she has been here 2L NC moving air better than this RN's assessment 24 hrs prior. Ross removed per order. Will try Pt with scheduled PO ativan. PT to start today. PIV x2 SL. Add, after IV Ativan, Pt notably more confused and hallucinating at times, denies these hallucinations at start of shift. CIWA same. Improved through shift, 1230, denies hallucinations. Do you think I have too much medication? Update to Dr Red, Ativan changed to PRN. Pain managed with oxycodone. WCTM.
[2020-09-23] MEDS: MAGNESIUM CHLORIDE 64 MG TABLET 128 MG PO (13:39)
--- NOTE | 2020-09-23 14:25 | PT.IIE ---
Current Diagnoses Chronic obstructive pulmonary disease, unspecified (09/21/20) Surgical History (Last Reviewed 09/19/20 @ 23:21 by Tomer Mattson MD) History of aorto-femoral bypass (Acute) History of back surgery (Acute) History of carpal tunnel release (Acute) History of cataract removal with insertion of prosthetic lens (Acute) History of colonoscopy (Acute) History of hysterectomy (Acute) Medical History (Last Reviewed 09/19/20 @ 23:21 by Tomer Mattson MD) Anxiety (Acute) Aortoiliac occlusive disease (Acute) COPD (chronic obstructive pulmonary disease) (Acute) Diarrhea (Acute) History of respiratory failure (Acute) Hypertension (Acute) Tobacco abuse (Acute) Physical Therapy Inpatient Evaluation/Re-Eval M1 PT/OT-IP Prior Functional Status Start: 09/23/20 16:00 Freq: NEEDED Status: Active Protocol: Document 09/23/20 14:25 AB (Rec: 09/23/20 16:20 AB [id number]) Medical Review Prior Functional Status Medical History Reviewed Yes Communication able to make needs known Mobility and Gait pt stated that she is modified independent with mobilities, mostly uses her electric w/c for mobility and holds on to wall/furniture for short distance mobility inside her house Activities of Daily Living and IADL's stated that her spouse provides SBA for her shower needs Social History Household Members spouse Living Arrangements House Number of Floors (Floors) One Floor Number of Stairs To Enter/Railing? 2 steps with B rails to enter Home Environment High Toilet,Tub/Shower Home Equipment Four Wheel Walker,Straight Cane,Power Wheelchair/Scooter, Bedside Commode,Shower Seat with Backrest,Hand Held Shower ,Grab Bars Near Toilet,Grab Bars In Shower Additional Social History Comment uses O2 24/7 at home M2 PT-IP Current Condition Start: 09/23/20 16:00 Freq: NEEDED Status: Active Protocol: Document 09/23/20 14:25 AB (Rec: 09/23/20 16:20 AB [email or web address]) Physical Therapy Current Condition Current Condition Evaluation Date 09/23/20 Treatment Diagnosis AMS; COPD exacerbation; difficulty in walking Onset Date 09/21/20 Precautions Other Precautions O2 M3 PT-IP Subjective Start: 09/23/20 16:00 Freq: NEEDED Status: Active Protocol: Document 09/23/20 14:25 AB (Rec: 09/23/20 16:20 AB [email or web address]) Subjective Physical Therapy Visit Type Type Initial Evaluation Visit Start Time 14:25 Visit Stop Time 14:52 Total Visit Minutes 27 Number of BANDER OPERATOR Visits 0 Physical Therapy Visit Comments Patient Comments pt is agreeable to do PT Therapy Pain Assessment Pain When Pain Assessed At Rest Pain Present Pain Present Pain Reported Location Back Intensity 7 M4 PT-IP Mobility and Gait Start: 09/23/20 16:00 Freq: NEEDED Status: Active Protocol: Document 09/23/20 14:25 AB (Rec: 09/23/20 16:20 AB [email or web address]) PT-Bed Mobility Assessment Supine to Sit Supine to Sit Standby Assistance PT-Transfer Assessment Sit to and From Stand Sit to and from Stand Minimal Assistance,1 Person Assistance,Use of Upper Extremities Equipment Transfer Assistive Device Gait Belt,Front Wheeled Walker Orthotic/Prosthetic Devices or Brace: No Transfers Transfer Destination Chair Transfer Technique Stand Step Pivot Transfer Ability Level of Assist Moderate Assistance,1 Person Assistance,Use of Upper Extremities Comments Mobility Comments completed supine to sit SBA. pt was able to sit on EOB SBA. completed sit to stand min A without any complaints. attempted ambulation but after taking ~ 3 steps, stated that she is feeling dizzy. instructed to sit down on chair. pt stated dizziness dissipated and agreed to sit up on chair. positioned on chair. call light and table placed within reach. informed NAC regarding levle of assistance. Gait Assessment Gait Gait Assistance Required: Moderate Assistance,1 Person Assist Distance (Feet) 2 Able to Maintain Weight Bearing Status Yes During Gait Assistive Devices Assistive Device Gait Belt,Front Wheeled Walker Orthotic/Prosthetic Devices or Brace: No Gait Deviations General Gait Pattern Antalgic,Decreased Stride Length,Decreased Feet Clearance Factors Limiting Gait Function Factors Limiting Gait Function Decreased Activity Tolerance, Decreased Strength,Limited Range of Motion,Pain,Poor Balance,Poor Safety Awareness, Respiratory Distress PT-Balance Assessment Sitting Balance and Reactions Static Sitting Balance Ability Good Dynamic Sitting Balance Ability Good Standing Balance and Reactions Static Standing Balance Ability Fair Dynamic Standing Balance Ability Fair Device Used FWW M5 PT-IP Objective Assessments Start: 09/23/20 16:00 Freq: NEEDED Status: Active Protocol: Document 09/23/20 14:25 AB (Rec: 09/23/20 16:20 AB [email or web address]) Orientation Orientation/Cognition Level of Alertness Alert Orientation Name,Place,Situation Language Function Ability Hard of Hearing Safety Awareness Decreased Safety Awareness Gross Range of Motion Lower Extremity ROM Assessment Within Functional Limits Strength Lower Extremity Strength Assessment Left Impaired Knee 3+/5 Coordination Assessment Gross Coordination Gross Coordination WNL Muscle Tone Muscle Tone WNL Yes M6 PT-IP Treatment Start: 09/23/20 16:00 Freq: NEEDED Status: Active Protocol: Document 09/23/20 14:25 AB (Rec: 09/23/20 16:20 AB [email or web address]) Physical Therapy Treatment Education Education Provided Safety M7 PT-IP Assessment and Plan Start: 09/23/20 16:00 Freq: NEEDED Status: Active Protocol: Document 09/23/20 14:25 AB (Rec: 09/23/20 16:20 AB [email or web address]) PT Summary Assessment and Plan Potential Rehabilitation Potential Good Status of Condition at Evaluation Evolving Summary Impairments Pain,ROM,Strength,Balance, Coordination,Sensation,Tone, Cognition,Bed Mobility, Transfers,Gait,Activity Tolerance Assessment Summary pt requiring min to mod A with mobility and has decrease activity tolerance. pt lives with spouse and stated that spouse will be able to assist her at home. will continue to assess progress for safe d/c plan. Goals Bed Mobility Goal Independent Transfer Goal Independent,Front Wheeled Walker,Four Wheeled Walker Gait Goal Independent,Front Wheel Walker ,Four Wheel Walker Gait Distance 50 Other Goals improve ambulation using 4WW 100 ft SBA up/down 2 steps B rails Days to Meet Goals 5 Frequency of Treatment Frequency Of Treatment Once a Day Treatment Plan Physical Therapy Treatment Plan Bed Mobility Training,Transfer Training,Gait Training, Therapeutic Exercise,Balance Retraining,Post Op Education, Discharge Planning,Hot or Cold Pack,Neuromuscular Re-ed, Coordination Retraining Recommendations To Nursing Amount of Assist Needed 1 Person Assist Discharge Recommendations PT Discharge Recommendations Home with Assistance,Home Health Equipment Needed for Home Before FWW if not safe with 4WW Discharge Transportation Needs at Discharge Private Vehicle
[2020-09-23] MEDS: CYCLOBENZAPRINE 10 MG TABLET PO (20:32)
[2020-09-23] MEDS: ATORVASTATIN 20 MG TABLET 10 MG PO (20:32)
[2020-09-24] VITALS (9 sets, daily range): BP systolic 130–168; BP diastolic 73–97; PULSE 74–97; RESP 16–20; TEMP 36.3–37.1; O2SAT 91–97
[2020-09-24] MEDS: OXYCODONE IR 5 MG TABLET 20 MG PO ×5 (03:12→20:15)
[2020-09-24 05:29] LABS: Add Manual Diff / Slide Review NO; Basophils Absolute Auto 0 /uL (0-100); Basophils Percent Auto 0.4 % (0-2); Eosinophils Absolute Auto 100 /uL (0-450); Eosinophils Percent Auto 1.8 % (2-4); Hemoglobin 12.3 g/dL (12.0-16.0); Lymphocytes Absolute Auto 1800 /uL (1100-4500); Lymphocytes Percent Auto 22.7 % (25-40); Mean Corpuscular HGB Conc 32.3 % (30-36); Mean Corpuscular Hemoglobin 29.4 PG (26-34); Mean Corpuscular Volume 91.1 fL (80-100); Monocytes Absolute Auto 800 /uL (0-900); Neutrophils Absolute Auto 5200 /uL (1500-7000); Neutrophils Percent Auto 65.1 % (50-75); Platelet Count 182 X10^3/uL (150-400); Red Blood Cell Count 4.17 X10^6/uL (4.0-5.2); Red Cell Distribution Width 13.7 % (11.6-14.8); White Blood Cell Count 7.9 X10^3/uL (4.5-11.0)
[2020-09-24 05:37] LABS: Alanine Aminotransferase 30 IU/L (<35); Albumin 3.5 g/dL (3.5-5.0); Albumin Globulin Ratio 1.2 (1.0-2.8); Alkaline Phosphatase 81 U/L (38-126); Aspartate Aminotransferase 40 IU/L (14-36); BUN Creatinine Ratio 47.7 (6-22); Bilirubin Total 0.6 mg/dL (0.2-1.3); Blood Urea Nitrogen 31 mg/dL (7-17); Carbon Dioxide 39 mmol/L (22-32); Chloride 94 mmol/L (98-107); Estimated Glomerular Filt Rate > 60.0 mL/min (>60); Glucose 93 mg/dL (80-110); HEMOLYSIS 16 (0-50); Potassium 4.2 mmol/L (3.4-5.1); Sodium 133 mmol/L (137-145); Total Protein 6.5 g/dL (6.3-8.2)
[2020-09-24 05:38] LABS: Magnesium 1.5 mg/dL (1.6-2.3); Phosphorous 2.7 mg/dL (2.8-4.1)
[2020-09-24 05:45] LABS: NT-proBNP (BNP-Adult 18+) 828 pg/mL (<125)
[2020-09-24] MEDS: ALBUTEROL/IPRATROPIUM 3 ML AMPUL INH ×3 (06:52→20:13)
[2020-09-24] MEDS: TIOTROPIUM BROMIDE 18 MCG INHALER INH (06:53)
[2020-09-24] MEDS: FLUTICASONE/SALMETEROL 250/50 60 PUFF DISKUS INH ×2 (06:53→20:14)
--- NOTE | 2020-09-24 08:12 | PM.PN.1 ---
Subjective Subjective Date Patient Seen: 09/24/20 Time Patient Seen: 08:13 Interval history: Patient seen says she is feeling much better least from a breathing standpoint. Not quite back to baseline but she is getting there. She feels a little bit spacey still in out of it. Ross catheter has been removed. Using CPAP and on chronic O2 is a. Respiratory status is stable. Vital signs are stable she is eating well. Getting up in the room a little bit more look limitedly which she normally does any ways. She is progressing back toward normal. Exam Vital Signs (past 8 hours): - 09/24/20 01:34 PDT 09/24/20 06:59 Temperature 98.3 F Pulse Rate 90 90 Respiratory Rate 16 18 Blood Pressure 152/84 H Pulse Oximetry 91 91 Fraction of Inspired Oxygen 28 Oxygen Delivery Method Room Air Oxygen Flow Rate 1.5 Narrative Exam Narrative: Gen.: She is alert and oriented to place and person not time HEENT: Pupils equal round and reactive or mucosa is dry neck is supple Cardio: S1-S2 regular rate and rhythm no murmurs appreciated. Respiratory: Decreased breath sounds throughout. With some rhonchi Abdomen: Soft nontender no rebound or guarding no liver spleen enlargement no appreciable hernias Extremities: Full range of motion no appreciable weakness no cyanosis or edema. Neurologic: Grossly intact. Objective Labs Result Diagrams: 09/24/20 04:25 09/24/20 04:25 Labs: Laboratory Results - last 24 hr 09/19/20 09/20/20 09/24/20 23:33 02:17 04:25 WBC 7.9 RBC 4.17 Hgb 12.3 Hct 38.0 MCV 91.1 MCH 29.4 MCHC 32.3 RDW 13.7 Plt Count 182 Neut % (Auto) 65.1 Lymph % (Auto) 22.7 L [place] % (Auto) 10.0 Eos % (Auto) 1.8 L Baso % (Auto) 0.4 Neut # (Auto) 5200 Lymph # (Auto) 1800 [place] # (Auto) 800 Eos # (Auto) 100 Baso # (Auto) 0 ABG pH 7.27 L* 7.36 ABG pCO2 79.2 H* 61.2 H* ABG pO2 156 H 63 L ABG HCO3 36 H 35 H ABG Total CO2 39 H 36 H ABG O2 Saturation 99 90 L ABG Base Excess 9.0 H 9.0 H FiO2 36 28 Sodium Potassium Chloride Carbon Dioxide BUN Creatinine Estimated GFR BUN/Creatinine Ratio Glucose Calcium Phosphorus Magnesium Total Bilirubin AST ALT Alkaline Phosphatase NT-Pro-B Natriuret Pep Total Protein Albumin Globulin Albumin/Globulin Ratio 09/24/20 09/24/20 04:25 04:25 WBC RBC Hgb Hct MCV MCH MCHC RDW Plt Count Neut % (Auto) Lymph % (Auto) [place] % (Auto) Eos % (Auto) Baso % (Auto) Neut # (Auto) Lymph # (Auto) [place] # (Auto) Eos # (Auto) Baso # (Auto) ABG pH ABG pCO2 ABG pO2 ABG HCO3 ABG Total CO2 ABG O2 Saturation ABG Base Excess FiO2 Sodium 133 L Potassium 4.2 Chloride 94 L Carbon Dioxide 39 H BUN 31 H Creatinine 0.65 Estimated GFR > 60.0 BUN/Creatinine Ratio 47.7 H Glucose 93 Calcium 9.0 Phosphorus 2.7 L Magnesium 1.5 L Total Bilirubin 0.6 AST 40 H ALT 30 Alkaline Phosphatase 81 NT-Pro-B Natriuret Pep 828 H Total Protein 6.5 Albumin 3.5 Globulin 3.0 Albumin/Globulin Ratio 1.2 Assessment & Plan Assessment & Plan narrative: COPD exacerbation with acute respiratory failure patient is improving. On home oxygen therapy. Transition over to oral steroids. Continue with antibiotics transition to oral antibiotics continue with CPAP and oxygen and nebulizer treatments. Almost back to baseline she feels like. If things continue to go well wall anticipate discharging home tomorrow. Acute alcohol withdrawal. Getting back to baseline there as well. Not so shaky jittery. Mentally she does not feel like she is quite back there yet as she says. Does not really remember what happened the last couple of days. When off lorazepam. Electrolyte abnormalities with hyponatremia Hypokalemia. Continue with potassium replacement monitor closely sodium and potassium. Continue to recheck and replace. Tobacco use continue with Nicoderm patch. Depression and anxiety continue with Effexor The disposition plan. Improving. Anticipate discharge tomorrow Quality VTE Deep Vein Thrombosis/Pulmonary Embolism Present on Admission: No
[2020-09-24] MEDS: POTASSIUM CHLORIDE 20 MEQ/15 ML UDC 60 MEQ PO (08:23)
[2020-09-24] MEDS: ENOXAPARIN 40 MG/0.4 ML SYRINGE SUBCUT (08:24)
[2020-09-24] MEDS: cloNIDine 0.1 MG TABLET 0.3 MG PO ×2 (08:25→20:16)
[2020-09-24] MEDS: FOLIC ACID 1 MG TABLET PO (08:26)
[2020-09-24] MEDS: predniSONE 20 MG TABLET 40 MG PO (08:26)
[2020-09-24] MEDS: MULTIVITAMIN 1 TABLET 1 TAB PO (08:27)
[2020-09-24] MEDS: DOCUSATE 100 MG CAPSULE PO ×2 (08:31→20:16)
[2020-09-24] MEDS: AMOXICILLIN 250 MG CAPSULE 500 MG PO ×3 (10:00→20:16)
[2020-09-24] MEDS: VENLAFAXINE ER 75 MG CAP 150 MG PO (10:00)
[2020-09-24] MEDS: SODIUM CHLORIDE 0.9% FLUSH 10 ML IV ×3 (11:54→20:15)
--- NOTE | 2020-09-24 12:51 | PC.NURSE ---
Addendum entered by Maria Pappas R.N. 09/24/20 13:24: leaving and requested at time of DC Pt goes home with Alcohol deterrent, so she wont want to keep drinking after all this Discussion about goals at home, and options for treatment/support. Pt somewhat indifferent to these goals of care and planning. I just wont drink Discussion to continue with D/c planning and Dr Red. Education and support to . Original Note: Am shift Pt is A/o x3, i'm a little fuzzy still but I think I am a lot better CIWA of [address] Arana into see Pt and planning for d/c home with S.O. in am. Pt is tolerating 2L NC with decreaesd WOB, compared to 24 hrs ago. Spo2 98%, PIV x2 SL. Chronic pain with PRN Oxycodone given. Eating meal and using 1PA to BSC. This is about as good as I get Re: Mobility, endurance. Using call light for needs.
--- NOTE | 2020-09-24 13:43 | OT.IP.EVAL ---
Current Diagnoses Chronic obstructive pulmonary disease, unspecified (09/21/20) Past Medical History (Last Reviewed 09/19/20 @ 23:21 by Tomer Mattson MD) Anxiety (Acute) Aortoiliac occlusive disease (Acute) COPD (chronic obstructive pulmonary disease) (Acute) Diarrhea (Acute) History of respiratory failure (Acute) Hypertension (Acute) Tobacco abuse (Acute) Surgical History (Last Reviewed 09/19/20 @ 23:21 by Tomer Mattson MD) History of aorto-femoral bypass (Acute) History of back surgery (Acute) History of carpal tunnel release (Acute) History of cataract removal with insertion of prosthetic lens (Acute) History of colonoscopy (Acute) History of hysterectomy (Acute) Occupational Therapy Inpatient Evaluation/Re-Eval M1 PT/OT-IP Prior Functional Status Start: 09/23/20 16:00 Freq: NEEDED Status: Active Protocol: Document 09/24/20 13:31 CGR (Rec: 09/24/20 13:43 CGR [email or web address]) Medical Review Prior Functional Status Medical History Reviewed Yes Communication able to make needs known Mobility and Gait pt stated that she is modified independent with mobilities, mostly uses her electric w/c for mobility and holds on to wall/furniture for short distance mobility inside her house Activities of Daily Living and IADL's stated that her spouse provides SBA for her shower needs Social History Household Members spouse Living Arrangements House Number of Floors (Floors) One Floor Number of Stairs To Enter/Railing? 2 steps with B rails to enter Home Environment High Toilet,Tub/Shower Home Equipment Four Wheel Walker,Straight Cane,Power Wheelchair/Scooter, Bedside Commode,Shower Seat with Backrest,Hand Held Shower ,Grab Bars Near Toilet,Grab Bars In Shower Additional Social History Comment uses O2 24/7 at home M2 OT-IP Current Condition Start: 09/24/20 13:30 Freq: Status: Active Protocol: Document 09/24/20 13:31 CGR (Rec: 09/24/20 13:43 CGR [email or web address]) Occupational Therapy Current Condition Current Condition Evaluation Date 09/24/20 Treatment Diagnosis COPD exacerbation, fall at home, alcohol withdrawl Diagnosis Onset Date 09/21/20 M3 OT- IP Subjective and Pain Start: 09/24/20 13:30 Freq: Status: Active Protocol: Document 09/24/20 13:31 CGR (Rec: 09/24/20 13:43 CGR [email or web address]) OT- Subjective Occupational Therapy Visit Type Type Initial Evaluation Visit Start Time 13:11 Visit Stop Time 13:28 Total Visit Minutes 17 Notes Pt's present through half of session. OT Pain Assessment Pain When Pain Assessed At Rest Pain Present Pain Present Pain Reported Location Generalized Intensity 7 Management Techniques Distraction,Modification of Treatment,Re-positioning M4 OT- IP ADL's Start: 09/24/20 13:30 Freq: Status: Active Protocol: Document 09/24/20 13:31 CGR (Rec: 09/24/20 13:43 CGR [email or web address]) OT [id number] General Evaluation Self-Feeding Ability Independent Comments OT Self-Feeding Comments lunch OT ADL-Grooming General Evaluation Grooming Ability Independent Areas Needing Assistance Face Washing OT ADL-Oral Care Comments Oral Care Comments not performed OT ADL-Dressing General Eval Upper Body Dressing Ability Independent Lower Body Dressing Ability Independent Areas Needing Assistance Socks OT ADL-Toileting General Evaluation Toileting Ability Independent Areas Needing Assistance Manage Clothing OT ADL-Bathing Comments OT Bathing Comments Not performed M5 OT- IP IADL's Start: 09/24/20 13:30 Freq: Status: Active Protocol: Document 09/24/20 13:31 CGR (Rec: 09/24/20 13:43 CGR [email or web address]) OT-Instrumental Activities of Daily Living Deficits IADL Deficits Identified No Deficits Home Safety Awareness Awareness of Need for Assistance at Home Good Awareness Ability to Problem Solve Emergency Able to Problem Solve Situations Medication Management Medication Management No Deficits Identified Money Management Money Management No Deficits Identified Meal Preparation Meal Preparation Caregiver Provides Assist Immigration Investigator Immigration Investigator Caregiver Provides Assist Driving Driving Comments Pt states that she can drive but doesn't M6 OT- IP Functional Cognition Start: 09/24/20 13:30 Freq: Status: Active Protocol: Document 09/24/20 13:31 CGR (Rec: 09/24/20 13:43 CGR [email or web address]) Cognitive Factors Limiting Selfcare Function Cognitive Ability Level of Alertness Alert Patient Orientation Name,Age,Birthday,Month,Date, Year,Day of Week,Place, Situation Attention Span Ability Capable of Focused Attention, Capable of Sustained Attention Ability to Follow Commands Able to Follow Multi-Step Commands OT- Vision and Hearing OT- Hearing Assessment OT- Hearing Assessment WFL OT- Vision Assessment Visual Acuity Glasses All The Time Visual Attentiveness WFL Occular Pursuits WFL Visual Convergence WFL Vision Assessment Comments noted that pt does not have smooth persuits with eye movements. M7 OT- IP Mobility and Balance Start: 09/24/20 13:30 Freq: Status: Active Protocol: Document 09/24/20 13:31 CGR (Rec: 09/24/20 13:43 CGR [email or web address]) OT- Bed Mobility Assessment Supine to Sit Supine to Sit Assist Independent Sit to Supine Sit to Supine Assist Independent Scooting Scooting to Edge of Bed Independent OT-Transfer Assessment Sit to and From Stand Sit to and from Stand Standby Assistance Transfers Transfer Ability Standby Assistance Technique Transfer Destination Bed,Toilet Transfer Technique Stand Step Pivot Devices Transfer Assistive Devices Gait Belt Comments Mobility Comments Pt ambulated around the room with gait belt and no AD. OT- Balance Assessment Sitting Balance and Reactions Static Sitting Balance Ability Good Dynamic Sitting Balance Ability Fair M8 OT- IP Objective Assessments Start: 09/24/20 13:30 Freq: Status: Active Protocol: Document 09/24/20 13:31 CGR (Rec: 09/24/20 13:43 CGR [email or web address]) OT Gross Range of Motion Upper Extremity Range of Motion Assessment Within Functional Limits OT Strength Upper Extremity Strength Assessment Within Functional Limits Comments Strength Comments grossly 4 to 4-/5 OT- Coordination Assessment Upper Extremity Finger to Nose Test Within Functional Limits Finger Tapping Test Within Functional Limits OT-Muscle Tone Assessment Muscle Tone WNL Yes OT Sensation Assessment Edema Edema Absent M9 OT- IP Assessment and Plan Start: 09/24/20 13:30 Freq: Status: Active Protocol: Document 09/24/20 13:31 CGR (Rec: 09/24/20 13:43 CGR [email or web address]) OT Summary Assessment and Plan Potential Rehabilitation Potential Good Analytic Complexity at Evaluation Low Summary OT Impairments Pain,Balance,Activity Tolerance Progress Towards Goals Safe For Discharge,Goals Met Assessment Summary Pt presents as a low complexity evaluation s/p admit for COPD exacerbation, fall and alcohol withdrawl. Pt has a hx of back pain. Pt presents today at or close to her baseline of IND to SBA for ADLs and functional mobility. Discussed home safety and endurance with pt. No further OT needs. Frequency of Treatment Frequency Of Treatment Discharge Discharge Recommendations OT Discharge Recommendations Home with Assistance Transportation Needs at Discharge Private Vehicle
--- NOTE | 2020-09-24 15:26 | CM.DPC ---
Addendum entered by Carmella Andrade LPN 09/24/20 15:47: Pt expressed thankfulness for the discussion and for listening to me and not ramming stuff down my throat. Perhaps Dr. Ford will be able to help pt get in to see a counselor when she is ready for this.... Original Note: DCP: continued: EMR reviewed and met with pt after discussion with ALEJANDRA Sifuentes. Dr. Red was here today and anticipates a d/c to home in next day or 2. Pt says she hopes this is tomorrow. PT and OT did see pt today and both agreed that she is likely at her medically fragile baseline. Pt's recovery has been affected by her alcohol withdrawal. Today she is alert and open to discussion of this issue. Pt says she has been an active alcoholic all of her life, since age 9 and raised by a family of alcoholics. She does describe her current use as 4 glasses of wine a day but admits these are large and that she drinks from morning until evenin. She has never had counseling for this nor has she been in any treatment programs. I have not wanted to. She says she regrets how hard this in on her . She also says she has been considering what she must do as the pain physician at a clinic in [facility] will not give me any medication as long as I am drinking alcohol. She said she is not interested now in any resources as the only one who can change any of this is me. Encouraged her to discuss all this in more detail with her PCP: Dr. Ford. Asked if she would consider HH services: specifically RN/OT (for home safety eval and energy conservatin techniques and WAITER/WAITRESS FORMAL for further discussion and assist in helping manage her ongoing chronic medical issues including the alcoholism and the current stresses in world and her family that she is facing. She is agreeable to this at this time. Will leave a Face/Face HH document for Dr. Ford or rounding partner tomorrow. Pt has never had HH and thus no particular agency choice: can use vendor [facility]. P: home with spouse support when stable for same. HH services as above if physician is agreeable to same. ALEJANDRA Sifuentes is updated.
[2020-09-24] MEDS: MAGNESIUM CHLORIDE 64 MG TABLET 128 MG PO (15:33)
--- NOTE | 2020-09-24 16:01 | PT.IPTN ---
Current Diagnoses Chronic obstructive pulmonary disease, unspecified (09/21/20) Physical Therapy Treatment Note M2 PT-IP Current Condition Start: 09/23/20 16:00 Freq: NEEDED Status: Active Protocol: Document 09/23/20 14:25 AB (Rec: 09/23/20 16:20 AB [id number]) Physical Therapy Current Condition Current Condition Evaluation Date 09/23/20 Treatment Diagnosis AMS; COPD exacerbation; difficulty in walking Onset Date 09/21/20 Precautions Other Precautions O2 M3 PT-IP Subjective Start: 09/23/20 16:00 Freq: NEEDED Status: Active Protocol: Document 09/24/20 15:51 AW (Rec: 09/24/20 16:01 AW [id number]) Subjective Physical Therapy Visit Type Type Treatment Note Visit Start Time 14:11 Visit Stop Time 14:25 Total Visit Minutes 14 Number of IT SALES CONSULTANT Visits 0 Physical Therapy Visit Comments Patient Comments pt is agreeable to do PT Therapy Pain Assessment Pain When Pain Assessed At Rest Pain Present Pain Present Pain Reported Location Generalized Scale Used not quantified M4 PT-IP Mobility and Gait Start: 09/23/20 16:00 Freq: NEEDED Status: Active Protocol: Document 09/24/20 15:51 AW (Rec: 09/24/20 16:01 AW [id number]) PT-Bed Mobility Assessment Supine to Sit Supine to Sit Standby Assistance Scooting Scooting to Edge of Bed Standby Assistance PT-Transfer Assessment Sit to and From Stand Sit to and from Stand Contact Guard Assistance,1 Person Assistance,Use of Upper Extremities Equipment Transfer Assistive Device Gait Belt,Front Wheeled Walker Orthotic/Prosthetic Devices or Brace: No Transfers Transfer Destination Chair Transfer Technique pt ambulated with FWW Transfer Ability Level of Assist Contact Guard Assistance,1 Person Assistance,Use of Upper Extremities Comments Mobility Comments Pt completed supine to sit from flat bed SBA and sat EOB. Sit to stand required CGA using FWW. In initial standing , pt was heard wheezing. SpO2 on 1L/min via NC was 95%. Pt ambulated in the hallway ~100 feet with one standing rest break at 50 feet before returning to the room. She transferred back to the bed SBA. SpO2 was steady throughout treatment at 94-97% on 1L/min. Gait Assessment Gait Gait Assistance Required: Contact Guard Assist,1 Person Assist Distance (Feet) 100 Able to Maintain Weight Bearing Status Yes During Gait Assistive Devices Assistive Device Gait Belt,Front Wheeled Walker Orthotic/Prosthetic Devices or Brace: No Gait Deviations General Gait Pattern Antalgic,Decreased Stride Length,Decreased Feet Clearance Factors Limiting Gait Function Factors Limiting Gait Function Decreased Activity Tolerance, Decreased Strength,Limited Range of Motion,Pain,Poor Balance,Poor Safety Awareness, Respiratory Distress Comments Gait Comments See mobility comments for details. PT-Balance Assessment Sitting Balance and Reactions Static Sitting Balance Ability Good Dynamic Sitting Balance Ability Fair Standing Balance and Reactions Static Standing Balance Ability Fair Dynamic Standing Balance Ability Fair Device Used FWW M5 PT-IP Objective Assessments Start: 09/23/20 16:00 Freq: NEEDED Status: Active Protocol: Document 09/23/20 14:25 AB (Rec: 09/23/20 16:20 AB [id number]) Orientation Orientation/Cognition Level of Alertness Alert Orientation Name,Place,Situation Language Function Ability Hard of Hearing Safety Awareness Decreased Safety Awareness Gross Range of Motion Lower Extremity ROM Assessment Within Functional Limits Strength Lower Extremity Strength Assessment Left Impaired Knee 3+/5 Coordination Assessment Gross Coordination Gross Coordination WNL Muscle Tone Muscle Tone WNL Yes M6 PT-IP Treatment Start: 09/23/20 16:00 Freq: NEEDED Status: Active Protocol: Document 09/24/20 15:51 AW (Rec: 09/24/20 16:01 AW [id number]) Physical Therapy Treatment Education Education Provided Safety M7 PT-IP Assessment and Plan Start: 09/23/20 16:00 Freq: NEEDED Status: Active Protocol: Document 09/24/20 15:51 AW (Rec: 09/24/20 16:01 AW [id number]) PT Summary Assessment and Plan Summary Impairments Pain,ROM,Strength,Balance, Coordination,Sensation,Tone, Cognition,Bed Mobility, Transfers,Gait,Activity Tolerance Progress Towards Goals Progressing Toward Goals Assessment Summary Pt has wheezing with activity today but maintains SpO2 94-97 % on 1L/min during 100 feet ambulation with one standing rest break. Will continue to assess for safe discharge plan but at this point pt would likely be safe to discharge home with assist and home health. Goals Bed Mobility Goal Independent Transfer Goal Independent,Front Wheeled Walker,Four Wheeled Walker Gait Goal Independent,Front Wheel Walker ,Four Wheel Walker Gait Distance 50 Other Goals improve ambulation using 4WW 100 ft SBA up/down 2 steps B rails Days to Meet Goals 5 Frequency of Treatment Frequency Of Treatment Once a Day Treatment Plan Physical Therapy Treatment Plan Bed Mobility Training,Transfer Training,Gait Training, Therapeutic Exercise,Balance Retraining,Post Op Education, Discharge Planning,Hot or Cold Pack,Neuromuscular Re-ed, Coordination Retraining Other Recommendations and Next Treatment assess with 4WW Focus Recommendations To Nursing Amount of Assist Needed 1 Person Assist Discharge Recommendations PT Discharge Recommendations Home with Assistance,Home Health Equipment Needed for Home Before FWW if not safe with 4WW Discharge Transportation Needs at Discharge Private Vehicle
[2020-09-24] MEDS: ATORVASTATIN 20 MG TABLET 10 MG PO (20:17)
[2020-09-24] MEDS: CYCLOBENZAPRINE 10 MG TABLET PO (20:17)
--- NOTE | 2020-09-24 22:09 | PC.NURSE ---
Shift Note: Pt alert and oriented x4, OOB with 1 person standby assist. CIWA = 0 this shift, pt seems less anxious during this shift than on previous days. She states she is feeling more like herself and is confident she can continue to improve at home. O2 sats 97% on 2L. IV in RA saline locked, ROHINI IV dc'd.
--- NOTE | 2020-09-24 23:12 | PC.NURSE ---
Alevyn dressing maintained to reddened area on coccyx.
[2020-09-25] VITALS (10 sets, daily range): BP systolic 140–178; BP diastolic 76–101; PULSE 66–105; RESP 16–20; TEMP 36.4–36.9; O2SAT 92–99
[2020-09-25] MEDS: LORazepam 0.5 MG TABLET PO ×4 (03:07→23:58)
[2020-09-25] MEDS: OXYCODONE IR 5 MG TABLET 20 MG PO ×5 (03:07→23:21)
[2020-09-25 05:33] LABS: Add Manual Diff / Slide Review NO; Basophils Absolute Auto 0 /uL (0-100); Basophils Percent Auto 0.6 % (0-2); Eosinophils Absolute Auto 100 /uL (0-450); Eosinophils Percent Auto 1.9 % (2-4); Hematocrit 34.9 % (36-46); Hemoglobin 11.3 g/dL (12.0-16.0); Lymphocytes Absolute Auto 1700 /uL (1100-4500); Lymphocytes Percent Auto 23.6 % (25-40); Mean Corpuscular HGB Conc 32.5 % (30-36); Mean Corpuscular Hemoglobin 29.5 PG (26-34); Mean Corpuscular Volume 90.9 fL (80-100); Monocytes Absolute Auto 800 /uL (0-900); Monocytes Percent Auto 10.8 % (3-14); Neutrophils Absolute Auto 4500 /uL (1500-7000); Neutrophils Percent Auto 63.1 % (50-75); Platelet Count 170 X10^3/uL (150-400); Red Blood Cell Count 3.84 X10^6/uL (4.0-5.2); Red Cell Distribution Width 13.4 % (11.6-14.8); White Blood Cell Count 7.1 X10^3/uL (4.5-11.0)
[2020-09-25 05:40] LABS: Alanine Aminotransferase 33 IU/L (<35); Albumin 3.2 g/dL (3.5-5.0); Albumin Globulin Ratio 1.1 (1.0-2.8); Alkaline Phosphatase 72 U/L (38-126); Aspartate Aminotransferase 38 IU/L (14-36); BUN Creatinine Ratio 57.9 (6-22); Bilirubin Total 0.3 mg/dL (0.2-1.3); Blood Urea Nitrogen 33 mg/dL (7-17); Calcium 8.9 mg/dL (8.4-10.2); Carbon Dioxide 34 mmol/L (22-32); Chloride 97 mmol/L (98-107); Estimated Glomerular Filt Rate > 60.0 mL/min (>60); Globulin 2.8 g/dL (1.7-4.1); Glucose 96 mg/dL (80-110); HEMOLYSIS < 15 (0-50); Potassium 3.1 mmol/L (3.4-5.1); Sodium 133 mmol/L (137-145)
[2020-09-25] MEDS: TIOTROPIUM BROMIDE 18 MCG INHALER INH (07:00)
[2020-09-25] MEDS: ALBUTEROL/IPRATROPIUM 3 ML AMPUL INH ×3 (07:00→19:37)
[2020-09-25] MEDS: FLUTICASONE/SALMETEROL 250/50 60 PUFF DISKUS INH ×2 (07:00→19:38)
--- NOTE | 2020-09-25 07:13 | PM.PN.1 ---
Subjective Subjective Date Patient Seen: 09/25/20 Time Patient Seen: 07:13 Exam Vital Signs (past 8 hours): - 09/25/20 00:08 09/25/20 05:00 09/25/20 07:03 Temperature 97.7 F 97.8 F Pulse Rate 83 96 H 99 H Respiratory Rate 18 18 16 Blood Pressure 178/101 H 151/94 H Pulse Oximetry 97 99 95 Fraction of Inspired Oxygen 28 Oxygen Delivery Method Nasal Cannula Oxygen Flow Rate 1 Objective Labs Result Diagrams: 09/25/20 04:54 09/25/20 04:54 Labs: Laboratory Results - last 24 hr 09/25/20 09/25/20 09/25/20 04:54 04:54 04:54 WBC 7.1 RBC 3.84 L Hgb 11.3 L Hct 34.9 L MCV 90.9 MCH 29.5 MCHC 32.5 RDW 13.4 Plt Count 170 Neut % (Auto) 63.1 Lymph % (Auto) 23.6 L [place] % (Auto) 10.8 Eos % (Auto) 1.9 L Baso % (Auto) 0.6 Neut # (Auto) 4500 Lymph # (Auto) 1700 [place] # (Auto) 800 Eos # (Auto) 100 Baso # (Auto) 0 Sodium 133 L Potassium 3.1 L Chloride 97 L Carbon Dioxide 34 H BUN 33 H Creatinine 0.57 Estimated GFR > 60.0 BUN/Creatinine Ratio 57.9 H Glucose 96 Calcium 8.9 Phosphorus 4.0 D Total Bilirubin 0.3 AST 38 H ALT 33 Alkaline Phosphatase 72 Total Protein 6.0 L Albumin 3.2 L Globulin 2.8 Albumin/Globulin Ratio 1.1 Quality VTE Deep Vein Thrombosis/Pulmonary Embolism Present on Admission: No
--- NOTE | 2020-09-25 07:18 | P.PN_ITS ---
Subjective Subjective Date Patient Seen: 09/25/20 Time Patient Seen: 07:18 Interval history: Taking over coverage from Medicine Team on-call for the weekend. Reportedly, patient went through alcohol withdrawals and was placed on a scheduled Ativan which has stabilized her symptoms. Otherwise, her respiratory status continues to improve but she is not back to baseline. Potassium has been very labile throughout her stay and she is low again this morning. She remains hypertensive. Otherwise, she is feeling slightly better. Still reports that her pain is uncontrolled but that her pain is never less than 7-8/10. She is tolerating a general diet and repeat denies nausea vomiting. Ross is now out and she is doing some ambulation around room. Exam Vital Signs (past 8 hours): - 09/25/20 00:08 09/25/20 05:00 09/25/20 07:03 Temperature 97.7 F 97.8 F Pulse Rate 83 96 H 99 H Respiratory Rate 18 18 16 Blood Pressure 178/101 H 151/94 H Pulse Oximetry 97 99 95 Fraction of Inspired Oxygen 28 Oxygen Delivery Method Nasal Cannula Oxygen Flow Rate 1 Narrative Exam Narrative: GENERAL: Alert and oriented, appearing stated age and in no acute distress. HEENT: Head normocephalic/atraumatic. Pupils equal, round, and reactive to light and accomodation. Extraocular muscles intact. Tympanic membranes clear. Nasal mucosa moist, septum midline. Oral mucosa moist, no lesions. Neck soft and supple, no lymphadenopathy. LUNGS: CTAB, no wheezes, rhonchi, or rales. CV: Normal S1 and S2 with regular rate and rhythm, no audible murmurs, rubs or gallops. ABDOMEN: Soft, non-tender, non-distended, no organomegaly. Positive bowel sounds. EXTREMITIES: No clubbing, cyanosis, or edema. NEURO: Cranial nerves II through XII grossly intact, no focal deficits. PSYCH: Alert and oriented x 3. SKIN: No concerning lesions. Objective Labs Result Diagrams: 09/25/20 04:54 09/25/20 04:54 Labs: Laboratory Results - last 24 hr 09/25/20 09/25/20 09/25/20 04:54 04:54 04:54 WBC 7.1 RBC 3.84 L Hgb 11.3 L Hct 34.9 L MCV 90.9 MCH 29.5 MCHC 32.5 RDW 13.4 Plt Count 170 Neut % (Auto) 63.1 Lymph % (Auto) 23.6 L [place] % (Auto) 10.8 Eos % (Auto) 1.9 L Baso % (Auto) 0.6 Neut # (Auto) 4500 Lymph # (Auto) 1700 [place] # (Auto) 800 Eos # (Auto) 100 Baso # (Auto) 0 Sodium 133 L Potassium 3.1 L Chloride 97 L Carbon Dioxide 34 H BUN 33 H Creatinine 0.57 Estimated GFR > 60.0 BUN/Creatinine Ratio 57.9 H Glucose 96 Calcium 8.9 Phosphorus 4.0 D Total Bilirubin 0.3 AST 38 H ALT 33 Alkaline Phosphatase 72 Total Protein 6.0 L Albumin 3.2 L Globulin 2.8 Albumin/Globulin Ratio 1.1 Assessment & Plan Assessment & Plan narrative: 1. COPD exacerbation, improving Plan: Amoxicillin, prednisone, albuterol, DuoNebs, Spiriva, and Advair. RT consulting. Continue BiPAP and oxygen therapy as needed. 2. Acute on chronic hypoxic respiratory failure Plan: Please see #1. 3. Elevated D-dimer -CT angiogram/LE duplex US negative Plan: Prophylactic Lovenox. 4. Elevated BNP, trending down and resolving -Maintenance fluilds were not ordered upon transfer to ICU but were kept running from ED. -IVF now hep-locked -Status post lasix 80 mg IV x 1 on 09/21/20 Plan: Will continue to trend labs. 5. Electrolyte derangement, chronic -baseline sodium: 135 -baseline chloride: 90 -baseline bicarbonate: 36 -history of hypokalemia, corrected with 60 mEq of potassium daily. Patient again low, 3.1 Plan: Electrolyte derangement is multifactorial but largely from her chronic COPD. Will change home potassium from 60 meq qd to BID and recheck labs again in the am. Likely need for this as outpatient oral dose. 6. Hypomagnesemia, resolved -Mg 1.0 --> 2.3 after repletion on 09/21/20 --> 1.7, on 09/25/20 1.4 Plan: Likely needs chronic oral replacment, will give Mag Cl 128 mg PO qd today and trend labs, likely need for this upon discharge. 7. Orthostatic hypotension -Currently hypertensive, likely due to uncontrolled pain, anxiety, and respiratory distress. Plan: Treating underlying pain and anxiety. Will increase clonidine from 0.3 mg to 0.4 mg PO BID with and watch closely. 8. Hyperlipidemia, chronic Plan: Continue atorvastatin 10 mg p.o. q.day. 9. History of alcohol use, 4 large glasses of wine daily Plan: CIWA protocol, scheduled ativan. 10. Tobacco use, 60 pack-year history Plan: Nicoderm 7 mg patch. 11. Depression/anxiety/panic attacks Plan: Continue venlafaxine ER 150 mg p.o. q.day. 12. Weakness, fall risk Plan: Vandana, PT. 13. Severe malnutrition Plan: Nutrition consult. Code: Full DVT prophylaxis: Lovenox GI prophylaxis: Protonix COVID: Negative on 09/14/2020 Disoposition: hopeful for discharge tomorrow if electrolytes and blood pressure stable. Home health paperwork has been signed for home SW, nursing, and OT. Quality VTE Deep Vein Thrombosis/Pulmonary Embolism Present on Admission: No
[2020-09-25] MEDS: POTASSIUM CHLORIDE 20 MEQ/15 ML UDC 60 MEQ PO ×2 (07:40→16:54)
[2020-09-25] MEDS: cloNIDine 0.1 MG TABLET 0.4 MG PO ×2 (07:41→20:18)
[2020-09-25] MEDS: DOCUSATE 100 MG CAPSULE PO ×2 (07:42→20:19)
[2020-09-25] MEDS: MULTIVITAMIN 1 TABLET 1 TAB PO (07:42)
[2020-09-25] MEDS: predniSONE 20 MG TABLET 40 MG PO (07:42)
[2020-09-25] MEDS: AMOXICILLIN 250 MG CAPSULE 500 MG PO ×3 (07:43→20:20)
[2020-09-25] MEDS: FOLIC ACID 1 MG TABLET PO (07:43)
[2020-09-25] MEDS: VENLAFAXINE ER 75 MG CAP 150 MG PO (07:44)
[2020-09-25 08:05] LABS: Magnesium 1.4 mg/dL (1.6-2.3)
--- NOTE | 2020-09-25 09:29 | CM.DPC ---
Addendum entered by Amee Newell R.N. 09/25/20 12:10: Spoke to Dr. Ford regarding discharge planning. She mentioned that Potassium would need to be more stable upon discharge, for concerns of her having potential cardiac issues when she goes home. [facility]. [facility] does have the referral. Original Note: DCP Cont: Dr. Ford signed face to face, added P.T, along with O.T, nursing, HULL OUTFIT SUPERVISOR. Called [facility], since they are on this week's calender and let them know that referral would be sent. Faxed over face sheet, orders, face to face, H&P, today's progress note. Anticipate DC tomorrow. P: DCP to continue to follow. Plan is for home with [facility]. Amee Newell RN/Hydraulic Technician
[2020-09-25] MEDS: MAGNESIUM CHLORIDE 64 MG TABLET 128 MG PO (09:33)
[2020-09-25] MEDS: SODIUM CHLORIDE 0.9% FLUSH 10 ML IV ×2 (09:34→20:20)
--- NOTE | 2020-09-25 11:26 | DIET.PN ---
Dietary Progress Note Pt drinking strawberry banana yogurt smoothies tid through weekend, admit body weight 40.9kg and today is 39kg. Pts did have some etoh withdrawl sx over weekend r/t drinking four large glasses of wine daily from morning through evening, current CIWA 0-1. Will continue sending smoothies tid to support PCM per pt preference.
--- NOTE | 2020-09-25 12:08 | PT.IPTN ---
Current Diagnoses Chronic obstructive pulmonary disease, unspecified (09/21/20) Physical Therapy Treatment Note M2 PT-IP Current Condition Start: 09/23/20 16:00 Freq: NEEDED Status: Active Protocol: Document 09/23/20 14:25 AB (Rec: 09/23/20 16:20 AB [id number]) Physical Therapy Current Condition Current Condition Evaluation Date 09/23/20 Treatment Diagnosis AMS; COPD exacerbation; difficulty in walking Onset Date 09/21/20 Precautions Other Precautions O2 M3 PT-IP Subjective Start: 09/23/20 16:00 Freq: NEEDED Status: Active Protocol: Document 09/25/20 11:05 AW (Rec: 09/25/20 12:08 AW [id number]) Subjective Physical Therapy Visit Type Type Treatment Note Visit Start Time 10:47 Visit Stop Time 11:04 Total Visit Minutes 17 Number of HOME SERVICE DIRECTOR Visits 0 Physical Therapy Visit Comments Patient Comments pt is agreeable to do PT Therapy Pain Assessment Pain When Pain Assessed At Rest Pain Present Pain Present Denied Pain M4 PT-IP Mobility and Gait Start: 09/23/20 16:00 Freq: NEEDED Status: Active Protocol: Document 09/25/20 11:05 AW (Rec: 09/25/20 12:08 AW [id number]) PT-Bed Mobility Assessment Supine to Sit Supine to Sit Standby Assistance Sit to Supine Sit to Supine Standby Assistance Scooting Scooting to Edge of Bed Standby Assistance PT-Transfer Assessment Sit to and From Stand Sit to and from Stand Standby Assistance,1 Person Assistance,Use of Upper Extremities Equipment Transfer Assistive Device Gait Belt,Front Wheeled Walker Orthotic/Prosthetic Devices or Brace: No Transfers Transfer Destination Bed Transfer Technique pt ambulated with FWW Transfer Ability Level of Assist Standby Assistance,1 Person Assistance,Use of Upper Extremities Comments Mobility Comments Pt requires SBA for all mobilities. Primary limitation is SOB. Gait Assessment Gait Gait Assistance Required: Standby Assistance Distance (Feet) 75 Able to Maintain Weight Bearing Status Yes During Gait Assistive Devices Assistive Device Gait Belt,Front Wheeled Walker Orthotic/Prosthetic Devices or Brace: No Gait Deviations General Gait Pattern Antalgic,Decreased Stride Length,Decreased Feet Clearance Factors Limiting Gait Function Factors Limiting Gait Function Decreased Activity Tolerance, Decreased Strength,Limited Range of Motion,Pain,Poor Balance,Poor Safety Awareness, Respiratory Distress Comments Gait Comments Pt ambulated 45 feet and then required seated rest break due to SOB and bilateral leg pain . She then ambulated another 35 feet before needing to return to bed due to fatigue and SOB. SpO2 was maintained 92-96% on 1L/min throughout. PT-Balance Assessment Sitting Balance and Reactions Static Sitting Balance Ability Good Dynamic Sitting Balance Ability Good Standing Balance and Reactions Static Standing Balance Ability Fair Dynamic Standing Balance Ability Fair Device Used FWW M5 PT-IP Objective Assessments Start: 09/23/20 16:00 Freq: NEEDED Status: Active Protocol: Document 09/23/20 14:25 AB (Rec: 09/23/20 16:20 AB [id number]) Orientation Orientation/Cognition Level of Alertness Alert Orientation Name,Place,Situation Language Function Ability Hard of Hearing Safety Awareness Decreased Safety Awareness Gross Range of Motion Lower Extremity ROM Assessment Within Functional Limits Strength Lower Extremity Strength Assessment Left Impaired Knee 3+/5 Coordination Assessment Gross Coordination Gross Coordination WNL Muscle Tone Muscle Tone WNL Yes M6 PT-IP Treatment Start: 09/23/20 16:00 Freq: NEEDED Status: Active Protocol: Document 09/25/20 11:05 AW (Rec: 09/25/20 12:08 AW [id number]) Physical Therapy Treatment Education Education Provided Safety M7 PT-IP Assessment and Plan Start: 09/23/20 16:00 Freq: NEEDED Status: Active Protocol: Document 09/25/20 11:05 AW (Rec: 09/25/20 12:08 AW [id number]) PT Summary Assessment and Plan Summary Impairments Pain,ROM,Strength,Balance, Coordination,Sensation,Tone, Cognition,Bed Mobility, Transfers,Gait,Activity Tolerance Progress Towards Goals Progressing Toward Goals Assessment Summary Pt has reduced wheezing but continues to experience SOB with limited ambulation using FWW. She had reduced activity tolerance today but maintained SpO2 92-96% on 1L/min during ambulation. Goals Bed Mobility Goal Independent Transfer Goal Independent,Front Wheeled Walker,Four Wheeled Walker Gait Goal Independent,Front Wheel Walker ,Four Wheel Walker Gait Distance 50 Other Goals improve ambulation using 4WW 100 ft SBA up/down 2 steps B rails Days to Meet Goals 4 Frequency of Treatment Frequency Of Treatment Once a Day Treatment Plan Physical Therapy Treatment Plan Bed Mobility Training,Transfer Training,Gait Training, Therapeutic Exercise,Balance Retraining,Post Op Education, Discharge Planning,Hot or Cold Pack,Neuromuscular Re-ed, Coordination Retraining Other Recommendations and Next Treatment assess with 4WW Focus Recommendations To Nursing Amount of Assist Needed Independent Discharge Recommendations PT Discharge Recommendations Home with Assistance,Home Health Equipment Needed for Home Before FWW if not safe with 4WW Discharge Transportation Needs at Discharge Private Vehicle
[2020-09-25] MEDS: ATORVASTATIN 20 MG TABLET 10 MG PO (20:15)
[2020-09-26] MEDS: OXYCODONE IR 5 MG TABLET 20 MG PO (04:51)
[2020-09-26 05:16] LABS: Add Manual Diff / Slide Review NO; Basophils Absolute Auto 0 /uL (0-100); Basophils Percent Auto 0.4 % (0-2); Eosinophils Absolute Auto 100 /uL (0-450); Eosinophils Percent Auto 1.3 % (2-4); Hematocrit 34.3 % (36-46); Hemoglobin 11.2 g/dL (12.0-16.0); Lymphocytes Absolute Auto 1700 /uL (1100-4500); Lymphocytes Percent Auto 24.8 % (25-40); Mean Corpuscular HGB Conc 32.6 % (30-36); Mean Corpuscular Hemoglobin 29.9 PG (26-34); Mean Corpuscular Volume 91.7 fL (80-100); Monocytes Absolute Auto 800 /uL (0-900); Monocytes Percent Auto 12.2 % (3-14); Neutrophils Absolute Auto 4100 /uL (1500-7000); Neutrophils Percent Auto 61.3 % (50-75); Platelet Count 161 X10^3/uL (150-400); Red Blood Cell Count 3.74 X10^6/uL (4.0-5.2); Red Cell Distribution Width 13.8 % (11.6-14.8); White Blood Cell Count 6.7 X10^3/uL (4.5-11.0)
[2020-09-26 05:24] LABS: Phosphorous 4.1 mg/dL (2.8-4.1)
[2020-09-26 05:25] LABS: Alanine Aminotransferase 38 IU/L (<35); Albumin Globulin Ratio 1.1 (1.0-2.8); Alkaline Phosphatase 64 U/L (38-126); Aspartate Aminotransferase 38 IU/L (14-36); BUN Creatinine Ratio 55.4 (6-22); Bilirubin Total 0.3 mg/dL (0.2-1.3); Blood Urea Nitrogen 36 mg/dL (7-17); Calcium 8.7 mg/dL (8.4-10.2); Carbon Dioxide 31 mmol/L (22-32); Chloride 100 mmol/L (98-107); Estimated Glomerular Filt Rate > 60.0 mL/min (>60); Globulin 2.7 g/dL (1.7-4.1); Glucose 95 mg/dL (80-110); HEMOLYSIS < 15 (0-50); Potassium 4.9 mmol/L (3.4-5.1); Sodium 131 mmol/L (137-145); Total Protein 5.7 g/dL (6.3-8.2)
[2020-09-26 07:00] VITALS: BP 149/84; PULSE 85; RESP 20; TEMP 37.1; O2SAT 96
[2020-09-26] MEDS: ALBUTEROL/IPRATROPIUM 3 ML AMPUL INH (08:14)
[2020-09-26] MEDS: TIOTROPIUM BROMIDE 18 MCG INHALER INH (08:14)
[2020-09-26 08:15] VITALS: PULSE 84; RESP 18; O2SAT 97
[2020-09-26] MEDS: FLUTICASONE/SALMETEROL 250/50 60 PUFF DISKUS INH (08:15)
[2020-09-26] MEDS: POTASSIUM CHLORIDE 20 MEQ/15 ML UDC 60 MEQ PO (08:45)
[2020-09-26 08:46] VITALS: BP 149/84; PULSE 84
[2020-09-26] MEDS: LORazepam 0.5 MG TABLET PO (08:46)
[2020-09-26] MEDS: FOLIC ACID 1 MG TABLET PO (08:46)
[2020-09-26] MEDS: MULTIVITAMIN 1 TABLET 1 TAB PO (08:46)
[2020-09-26] MEDS: cloNIDine 0.1 MG TABLET 0.4 MG PO (08:46)
[2020-09-26] MEDS: predniSONE 20 MG TABLET 40 MG PO (08:46)
[2020-09-26] MEDS: DOCUSATE 100 MG CAPSULE PO (08:46)
[2020-09-26] MEDS: AMOXICILLIN 250 MG CAPSULE 500 MG PO (08:47)
[2020-09-26] MEDS: VENLAFAXINE ER 75 MG CAP 150 MG PO (08:48)
[2020-09-26] MEDS: MAGNESIUM CHLORIDE 64 MG TABLET 128 MG PO (08:48)
--- NOTE | 2020-09-26 09:23 | CM.DPC ---
DCP Cont: Patient is discharging home today. Called Bon at [facility] and updated him. Faxed yesterday's progress note, today's DC summary not yet complete, and faxed orders and face to face with face sheet. Had patient' sign IMM. Updated patient and that they should be hearing from [facility]. P: Patient is to discharge home with [facility]. Amee Newell RN/Junior Paralegal
--- NOTE | 2020-09-26 10:44 | PC.NURSE ---
pt prepared for discharge and reviewed post hospitalization plans- rx sent to [facility] - answered all questions to both pt and spouses satisfactionand discharged at this time
--- NOTE | 2020-09-26 10:46 | PT-IP ANOTE ---
pt d/c home before PT can work with her. nurse stated that pt is at her baseline with mobility.
--- NOTE | 2020-09-26 17:11 | PM.DS.1 ---
History of Present Illness History of Present Illness Date Patient Seen: 09/26/20 Time Patient Seen: 17:12 Date of Onset of Symptoms: 09/20/20 Chief complaint: Altered mental status Narrative: See history and physical dictated by Dr. Decker Discharge Providers Provider Date of admission: 09/21/20 15:07 Discharge Date: 09/26/20 Primary care physician: Indy Ford MD Consults: 09/20/20 04:07 Consult to Dietitian, Adult Routine Comment: Reason For Exam: greater than 20 lb wt loss 09/20/20 06:07 Consult to Discharge Planning Routine Comment: 09/23/20 09:37 Consult to Physical Therapy Evaluate & Treat Comment: Physician Instructions: Evaluate and Treat 09/24/20 11:18 Consult to Occupational Therapy Evaluate & Treat Comment: Physician Instructions: Evaluate and treat 09/25/20 08:22 Consult to Dietitian, Adult Routine Comment: Reason For Exam: severe malnutrtion 09/25/20 08:42 Consult to Home Health Routine Comment: Reason For Exam: Home Health nursing, P.T, O.T, [employer] Discharge provider: Tomer Agosto MD Summary Hospital Course Hospital Course: COPD exacerbation Acute on chronic hypoxic respiratory failure Elevated D-dimer History of alcohol abuse with withdrawal, confusion, delirium and encephalopathy metabolic Tobacco abuse Depression Electrolyte derangement chronic Decreased magnesium Hyperlipidemia Weakness fall risk Severe nutrition COPD exacerbation. Patient was admitted with pretty severe respiratory failure felt to be secondary to COPD. Patient was started on IV antibiotics Solu-Medrol and high-flow oxygen with BiPAP. Patient was continued on this therapy does she was slowly improving towards the weekend. Really had no significant change in that period and then slowly was making change. On Friday she was switched to oral antibiotics and oral steroids. She continued to slowly improve and was feeling back to baseline on the day of discharge. She will be discharged on home O2 which she usually uses antibiotics oral steroids will be followed up with Dr. Ford to make changes. Acute hypoxic respiratory failure on chronic. See above. Elevated D-dimer. Patient was noted to have an elevated D-dimer she had a history of CT angiogram which was negative. Was felt to be secondary to her history of smoking and was not followed. There was no evidence of DVT on ultrasound and no further workup. Prophylactic Lovenox was began on admission. History of alcohol abuse with withdrawal confusion delirium and encephalopathy metabolic. Patient was admitted. Within 24 hour she began to show signs of withdrawal. She was began on aggressive Ativan therapy. She continued to slowly improve and was discontinued on therapy on Friday. She seemed to be doing well and has having no issues. Long discussion with her about alcohol use. She feels like she is going to try to make an improvement has had recent deaths in the family which seemed to drive most of her alcohol use. We discussed that in her case it would be best if she does not drink we discussed possible options she is not interested in any other options at this time. History of tobacco abuse. Patient with severe COPD home O2 need and still smoking. She feels like she can quit now but will see what happens. Discussed importance of that. Depression. Patient has had multiple issues in her life recently period and we discussed that period she feels like she can do okay she will be following with Dr. Ford and we will proceed from there. Electrolyte derangement. Patient has had longstanding issues with her electrolytes. Primary issue during admission was her potassium. She began going low shortly after admission oral replacement was done. On the day of admission she was in the 4s. Doing well. Had no other issue. Decreased magnesium replaced during admission. Hyperlipidemia. Stable. Weakness. Physical therapy was consulted and she was followed. She will need to be followed as an outpatient. Has a high fall risk. Nutritional issues. Patient had discussion with nutrition and with Dr. Ford. She will be followed as an outpatient. Exam Vital Signs (past 8 hours): Fraction of Inspired Oxygen 28 Oxygen Delivery Method Nasal Cannula Oxygen Flow Rate 1 Narrative Exam Narrative: Alert elderly female much older in appearance than her stated age. HEENT exam unremarkable mucous membranes moist. Neck supple without adenopath. Lungs show decreased air exchange with occasional wheeze. Heart is distant abdomen is soft positive bowel sounds nontender extremities without cyanosis clubbing edema. Neurologic exam is unremarkable. Psychologically she seems upbeat today Objective Labs Result Diagrams: 09/26/20 04:44 09/26/20 04:44 Labs: Laboratory Results - last 24 hr 09/26/20 09/26/20 09/26/20 04:44 04:44 04:44 WBC 6.7 RBC 3.74 L Hgb 11.2 L Hct 34.3 L MCV 91.7 MCH 29.9 MCHC 32.6 RDW 13.8 Plt Count 161 Neut % (Auto) 61.3 Lymph % (Auto) 24.8 L Dyer % (Auto) 12.2 Eos % (Auto) 1.3 L Baso % (Auto) 0.4 Neut # (Auto) 4100 Lymph # (Auto) 1700 Dyer # (Auto) 800 Eos # (Auto) 100 Baso # (Auto) 0 Sodium 131 L Potassium 4.9 D Chloride 100 Carbon Dioxide 31 BUN 36 H Creatinine 0.65 Estimated GFR > 60.0 BUN/Creatinine Ratio 55.4 H Glucose 95 Calcium 8.7 Phosphorus 4.1 Total Bilirubin 0.3 AST 38 H ALT 38 H Alkaline Phosphatase 64 Total Protein 5.7 L Albumin 3.0 L Globulin 2.7 Albumin/Globulin Ratio 1.1 Discharge Assessment & Plan Assessment and Plan Plan of Treatment: Discharge to home see discharge above follow-up with Dr. Logan de los santos on Friday. Discharge Plan Discharge Plan Patient Disposition: Home Discharge orders & Medications Prescriptions: New clonidine HCl 0.1 mg Tablet 0.4 mg PO BID Qty: 60 RF: 2 amoxicillin 250 mg Capsule 500 mg PO TID Qty: 21 RF: 0 prednisone 20 mg tablet 40 mg PO DAILY Qty: 60 RF: 0 Continued cyclobenzaprine 10 MG tablet 10 mg PO HSP Qty: 0 RF: 0 potassium chloride [Klor-Con M10] 10 MEQ tablet,ER particles/crystals 60 meq PO QDAY Qty: 0 RF: 0 oxycodone 5 mg Capsule 20 mg PO QID PRN (Reason: Pain, Moderate) RF: 0 atorvastatin 40 mg tablet 40 mg PO DAILY RF: 0 venlafaxine 75 mg capsule,extended release 24hr 75 mg PO DAILY RF: 0 albuterol sulfate 2.5 mg /3 mL (0.083 %) solution for nebulization 2.5 mg inhalation Q4H PRN (Reason: Wheezing) RF: 0 venlafaxine 150 mg capsule,extended release 24hr 150 mg PO DAILY RF: 0 albuterol sulfate [Ventolin HFA] 90 mcg/actuation Hfa Aerosol Inhaler 2 puff INHALATION Q4-6H PRN (Reason: Shortness Of Breath) RF: 0 oxycodone 10 mg Tablet 10 mg PO DAILY RF: 0 ciclesonide 160 mcg/actuation Hfa Aerosol Inhaler 2 puff INHALATION BID RF: 0 Spiriva Respimat 2.5 mcg/actuation mist 2 puff INHALATION BID RF: 0 Qvar RediHaler 40 mcg/actuation HFA aerosol breath activated 2 inh INHALATION BID RF: 0 diltiazem HCl 120 mg capsule,extended release 24hr 120 mg PO DAILY RF: 0 hydroxyzine HCl 25 mg tablet 25 mg PO DAILY RF: 0 Adult Low Dose Aspirin 81 mg PO DAILY RF: 0 Follow up/Referrals: Indy Ford MD [Primary Care Provider] - 10/03/20 10:30 am (appt:10/03 @ 10:[address] ford please arrive 15 minutes preior to your scheduled appointment ) Discharge Health Status Multidrug resistant organism: No MDRO Diet/Activity/Treatments Diet: Diet as Tolerated Activity: as tolerated Oxygen: home oxygen as usual. keep saturation above 92% Skin/Wound/Dressing Care Report to your healthcare provider any signs of infection, such as:: chills, fever, night sweats and increased pain Visit Report/Discharge Packet Instructions: DI for Heart Failure, DI for Prescription Opioid Use Visit Report Forms: Congestive Heart Failure, Patient Portal/API, Stroke Signs & Symptoms Discharge Data Primary Care Provider: Indy Ford Discharges patient from system. Discharge Date/Time: 09/26/20 10:48 Quality VTE Deep Vein Thrombosis/Pulmonary Embolism Present on Admission: No
== END 2020-09-26 10:48 | disposition home health service (06) | DRG 190 ==
LOC: ED 09-20 02:02 → ICU 09-20 02:04
PROVIDERS: Admitting Provider Family Medicine; Emergency Provider Emergency Medicine; PCP Student in an Organized Health Care Education/Training Program; Referring Provider Emergency Medicine; Visit Provider Family Medicine
DX: J44.1 Chronic obstructive pulmonary disease with (acute) exacerbation (principal); J96.21 Acute and chronic respiratory failure with hypoxia; E43 Unspecified severe protein-calorie malnutrition; G93.41 Metabolic encephalopathy; E87.2 Acidosis; F10.231 Alcohol dependence with withdrawal delirium; Z68.1 Body mass index [BMI] 19.9 or less, adult; I95.1 Orthostatic hypotension; E87.6 Hypokalemia; E83.42 Hypomagnesemia; Z99.81 Dependence on supplemental oxygen; E78.5 Hyperlipidemia, unspecified; F32.9 Major depressive disorder, single episode, unspecified; F41.9 Anxiety disorder, unspecified; F17.210 Nicotine dependence, cigarettes, uncomplicated; R53.1 Weakness
CPT/HCPCS: 36415; 36600; 70450; 71045; 71275; 80048; 80053; 80305; 81001; 82550; 82805; 82962; 83605; 83690; 83735; 83880; 84100; 84132; 84145; 84146; 84484; 85025; 85379; 85610; 85730; 87635; 87797; 90471; 90656; 93005; 93010; 93970; 94640; 94660; 94760; 94762; 94770; 96361; 96365; 96375; 97116; 97162; 97165; 99285; 99291; 99292; G0378; J1630; J1650; J1940; J2060; J2270; J2543; J2930; J3480; J7613; Q2038; Q9967

== ENCOUNTER → 2021-05-07 11:56 | Outpatient (ROUT) | payer OTHER, SELFPAY ==
[2020-09-20 02:55] VITALS: BMI 16.2
[2020-09-22 21:30] VITALS: PULSE 81; RESP 21; O2SAT 97
[2021-05-07 12:14] LABS: D Dimer 771 ng/mL (<230)
== END ==
PROVIDERS: PCP Student in an Organized Health Care Education/Training Program; Visit Provider Student in an Organized Health Care Education/Training Program
DX: R79.89 Other specified abnormal findings of blood chemistry (principal)
CPT/HCPCS: 85379

== ENCOUNTER → 2021-07-03 11:44 | Outpatient (CLI) | payer OTHER, SELFPAY ==
[2020-09-20 02:55] VITALS: BMI 16.2
[2020-09-22 21:30] VITALS: PULSE 81; RESP 21; O2SAT 97
--- NOTE | 2021-07-03 | DI.MRI.S_ITS ---
PROCEDURE: MR LUMBAR SPINE WO CON INDICATIONS: Spondylosis TECHNIQUE: Noncontrast sagittal T1 spin echo and T2 fast echo, sagittal STIR, axial T1 and T2 fast spin echo through the lumbar spine. In cases with scoliosis, additional coronal T2 fast spin echo may be performed. COMPARISON: None. FINDINGS: Image quality: Excellent. Alignment and Curvature: There is normal bony alignment. Bone Marrow: Marrow is of normal overall signal. No acute vertebral body compression fractures. Spinal Cord: Conus medullaris terminates at the L1 level. Visualized cord demonstrates normal signal and size. Regional Soft Tissues: No paravertebral masses. T12-L1: No spinal canal or neural foraminal stenosis. L1-L2: No spinal canal or neural foraminal stenosis. L2-L3: Diffuse disc bulge flattens the ventral thecal sac without mass effect upon the traversing L3 nerve roots. No neural foraminal stenosis. L3-L4: Disc bulge flattens and indents the ventral thecal sac. There is displacement of the descending L4 nerve roots within both subarticular zones. Foraminal components of the disc material and facet hypertrophy combine to produce moderate left and mild right neural foraminal stenosis. L4-L5: Disc bulge flattens the ventral thecal sac. No mass effect upon the traversing L5 nerve roots. Foraminal components of the disc bulge and facet hypertrophy combine to produce moderate right and mild left neural foraminal stenosis. L5-S1: Diffuse disc bulge with a superimposed protrusion in the right paracentral and subarticular zones with mild displacement of the descending S1 nerve roots, right greater than left. Foraminal components of the disc bulge contribute to moderate bilateral neural foraminal stenosis. IMPRESSION: Multilevel multifactorial degenerative changes, worst at L5-S1. Dictated by: Karan Hendrix M.D. on 07/03/2021 at 12:41 Approved by: Karan Hendrix M.D. on 07/03/2021 at 12:44
== END ==
PROVIDERS: PCP Student in an Organized Health Care Education/Training Program; Referring Provider Pain Medicine Pain Medicine; Visit Provider Pain Medicine Pain Medicine
DX: M47.816 Spondylosis without myelopathy or radiculopathy, lumbar region (principal); M47.817 Spondylosis without myelopathy or radiculopathy, lumbosacral region
CPT/HCPCS: 72148

== ENCOUNTER → 2021-10-03 13:51 | Outpatient (CLI) | payer OTHER, SELFPAY ==
[2020-09-20 02:55] VITALS: BMI 16.2
[2020-09-22 21:30] VITALS: PULSE 81; RESP 21; O2SAT 97
--- NOTE | 2021-10-03 13:54 | DI.RAD.S_ITS ---
PROCEDURE: XR LUMBAR SPINE 2-3V INDICATIONS: LUMBAR PAIN TECHNIQUE: 3 views of the lumbar spine were acquired. COMPARISON: [facility], CR, XR LUMBAR SPINE 6V W BENDING, 11/08/2019, 15:36. FINDINGS: Bones: 5 [id number] vertebrae are present. Mild to moderate disc height loss at L4 through S1. Moderate facet arthrosis at L5-S1. No vertebral body compression fractures. No suspicious bony lesions. Soft tissues: Overlying bowel gas pattern is normal. No suspicious soft tissue calcifications. IMPRESSION: No acute osseous abnormality. Dictated by: Thony Abbasi M.D. on 10/03/2021 at 16:10 Approved by: Thony Abbasi M.D. on 10/03/2021 at 16:11
== END ==
PROVIDERS: PCP Student in an Organized Health Care Education/Training Program; Referring Provider Family Medicine; Visit Provider Family Medicine
DX: G89.29 Other chronic pain (principal); M54.59 Other low back pain; M47.817 Spondylosis without myelopathy or radiculopathy, lumbosacral region
CPT/HCPCS: 72100

== ENCOUNTER 2022-02-25 17:42 | Inpatient (IN) | payer OTHER, SELFPAY ==
[2020-09-20 02:55] VITALS: BMI 16.2
[2020-09-22 21:30] VITALS: PULSE 81; RESP 21; O2SAT 97
[2022-02-25] VITALS (25 sets, daily range): BP systolic 126–183; BP diastolic 63–91; PULSE 69–99; RESP 14–51; TEMP 31–36.5; O2SAT 82–96
--- NOTE | 2022-02-25 17:48 | DI.RAD.S_ITS ---
PROCEDURE: XR CHEST 1V INDICATIONS: Flu like symptoms TECHNIQUE: One view of the chest was acquired. COMPARISON: [facility], CR, XR CHEST 1V, 09/19/2020, 22:55. FINDINGS: Surgical changes and devices: Lower cervical spine fusion.. Lungs and pleura: Lucencies in upper lobes bilaterally consistent with emphysema. No pleural effusions or pneumothorax. Mediastinum: Mediastinal contours appear normal. Heart size is normal. Bones and chest wall: No suspicious bony lesions. Overlying soft tissues appear unremarkable. IMPRESSION: Severe emphysema. No acute cardiopulmonary disease. Dictated by: Princess Marquez M.D. on 02/25/2022 at 18:26 Approved by: Princess Marquez M.D. on 02/25/2022 at 18:27
[2022-02-25 18:04] LABS: Add Manual Diff / Slide Review NO; Basophils Absolute Auto 0 /uL (0-100); Basophils Percent Auto 0.5 % (0-2); Eosinophils Absolute Auto 0 /uL (0-450); Eosinophils Percent Auto 0.2 % (2-4); Hematocrit 39.6 % (36-46); Hemoglobin 12.7 g/dL (12.0-16.0); Lymphocytes Absolute Auto 900 /uL (1100-4500); Mean Corpuscular Hemoglobin 31.5 PG (26-34); Mean Corpuscular Volume 98.4 fL (80-100); Monocytes Absolute Auto 700 /uL (0-900); Monocytes Percent Auto 8.8 % (3-14); Neutrophils Absolute Auto 6200 /uL (1500-7000); Neutrophils Percent Auto 79.5 % (50-75); Platelet Count 166 X10^3/uL (150-400); Red Blood Cell Count 4.02 X10^6/uL (4.0-5.2); Red Cell Distribution Width 14.9 % (11.6-14.8); White Blood Cell Count 7.8 X10^3/uL (4.5-11.0)
--- NOTE | 2022-02-25 18:12 | ED.SOB ---
HPI - SOB/Dyspnea General Chief Complaint: Shortness of Breath/Dyspnea Stated Complaint: SOB/ h/o COPD Time Seen by Provider: 02/25/22 18:10 History of Present Illness HPI Narrative: The patient has oxygen dependent COPD. She does not use CPAP or BiPAP at home. She arrives with her . She has dyspnea, she answers in single words only. She is not having on his chest pain. She denies headache, there is no suggestion from her or of recent fever. Or appetite is poor. She has a DNR/DNI POLST order. Additional information is not obtainable. Related Data Home Medications Medication Instructions Recorded Confirmed cyclobenzaprine 10 mg tablet 10 mg PO HSP #0 06/08/13 02/26/22 potassium chloride 10 mEq 60 meq PO QDAY #0 06/08/13 06/21/21 tablet,extended release(part/cryst) (Klor-Con M) oxycodone 5 mg capsule 20 mg PO 5XD 12/29/19 02/26/22 Adult Low Dose Aspirin 81 mg PO DAILY 09/20/20 02/26/22 albuterol sulfate 2.5 mg INHALATION Q4H PRN 09/20/20 06/21/21 albuterol sulfate 90 mcg/actuation 2 puff INHALATION Q4-6H PRN 09/20/20 06/21/21 aerosol inhaler (Ventolin HFA) atorvastatin 40 mg tablet 40 mg PO QPM 09/20/20 02/26/22 beclomethasone dipropionate 40 2 inh INHALATION BID 09/20/20 06/21/21 mcg/actuation HFA breath activated aerosol (Qvar RediHaler) ciclesonide 160 mcg/actuation 2 puff INHALATION BID 09/20/20 06/21/21 aerosol inhaler diltiazem HCl 120 mg 120 mg PO DAILY 09/20/20 02/26/22 capsule,extended release 24 hr hydroxyzine HCl 25 mg tablet 25 mg PO DAILY 09/20/20 06/21/21 oxycodone 10 mg tablet 10 mg PO DAILY 09/20/20 06/21/21 tiotropium bromide 2.5 2 puff INHALATION BID 09/20/20 06/21/21 mcg/actuation mist for inhalation (Spiriva Respimat) venlafaxine 150 mg 150 mg PO DAILY 09/20/20 02/26/22 capsule,extended release 24 hr venlafaxine 75 mg capsule,extended 75 mg PO DAILY 09/20/20 02/26/22 release 24 hr gabapentin 100 mg capsule 100 mg PO DAILY 02/26/22 02/26/22 magnesium oxide 200 mg PO BID 02/26/22 02/26/22 quetiapine 25 mg tablet 75 mg PO BEDTIME 02/26/22 02/26/22 Previous Rx's Medication Instructions Recorded clonidine HCl 0.1 mg tablet 0.4 mg PO BID #60 tab 09/26/20 prednisone 20 mg tablet 40 mg PO DAILY #60 tab 09/26/20 Allergies Allergy/AdvReac Type Severity Reaction Status Date / Time meclizine Allergy Verified 09/20/20 14:28 naproxen [From Naprosyn] Allergy Verified 09/20/20 14:28 Patient History Medical History (Updated 02/26/22 @ 06:17 by Tomer Mattson MD) Anxiety Aortoiliac occlusive disease COPD (chronic obstructive pulmonary disease) Diarrhea History of respiratory failure Hypertension Tobacco abuse Surgical History History of aorto-femoral bypass History of back surgery History of carpal tunnel release History of cataract removal with insertion of prosthetic lens History of colonoscopy History of hysterectomy Family History Brother Cancer Family/Other Cancer Social History marital status: household members: spouse Smoking Status: Current every day smoker alcohol intake: current substance use type: does not use Smoking Status: Current every day smoker alcohol intake frequency: 3 or more drinks per day Alcohol type: wine Substance Use Type: does not use Exam Initial Vital Signs Initial Vital Signs: Vital Signs Pulse Rate 74 02/25/22 17:46 Pulse Oximetry 85 L 02/25/22 17:46 Const General: acute distress, anxious and frail appearing Nutritional Appearance: cachectic Limitations: altered mental status (Limited ability to communicate.) [facility] Head: normal to inspection Face and sinus: normal facial exam Mouth: oral mucosae normal Eyes General: appearance normal, both eyes and all related structures Neck Neck: supple and JVD (3 cm bilaterally) Chest Chest: abnormal inspection of the chest (Shallow respirations only.) Resp Other: Severely diminished breath sounds throughout, especially in apexes. No rales. No wheezes. GI Inspection: normal to inspection Palpation: soft, No mass and No tender Auscultation: normal bowel sounds Back/Spine/Pelvis Back: No crepitance and No CVA tenderness Skin General: no rashes or lesions noted Neuro General: patient alert, patient awake and oriented (Initially oriented person only.) Motor: muscle tone normal throughout Extrem Other: Thin, frail. No peripheral edema. Course Course Course Narrative: The patient's code status was reviewed. The patient her confirm she is to remain DNR/DNI. She agreed to BiPAP. She was started on DuoNeb followed by 1 hour of albuterol. IV Solu-Medrol was given. She is on 3 L of oxygen at home, she has refused CPAP at home. An initial ABG with 3 L of oxygen shows pH of 7.12, pCO2 was greater than 100. Other than me seeing the original results, this data may have been lost. After BiPAP and treatments as noted above, she improved. She became more coherent. We were able to remove the BiPAP. Repeat ABG shows pH 7.24, pCO2 91.7. The patient agreed to continue with BiPAP. She is on potassium supplements, there is no diuretic listed in her meds. Her initial potassium level is 7.6, repeat was 7.4. There are no critical EKG changes associated with the hyperkalemia. She was given calcium carbonate, bicarb, and she was already receiving albuterol. D 50 is not available, thus this modality of treatment was not pursued. She already is in CHF and elevated BNP, but she was given a 500 mL bolus of fluid prior to giving her a total of 40mg of Lasix. Diuresis followed. The on-call physician, Dr. Calderon, was consulted. He agreed to admission. The patient also received Kayexalate prior to admission. Potassium improved to 4.6 prior to admission. Orders Ordered: Acetaminophen (Acetaminophen 325 Mg Tablet) 650 mg PO Q6HR PRN PRN Reason: Fever/Mild Pain (1-3) Albuterol (Albuterol 2.5 Mg/3 Ml Neb (Adult)) 2.5 mg INH [id number] PRN PRN Reason: Shortness Of Breath Sodium Chloride (Normal Saline 0.9%) 1,000 mls @ 1,000 mls/hr IV BOLUS PRN PRN Reason: Fluid replacement Last Infusion: 02/25/22 20:53 Dose: 0 mls/hr Documented by: Admin: 02/25/22 19:25 Dose: 1,000 mls/hr Documented by: RULA Sodium Chloride (Sodium Chloride 0.9% Flush) 10 ml IV PRN PRN PRN Reason: Flush Sodium Chloride (Sodium Chloride 0.9% Flush) 10 ml IV BID LOLA Discontinued Medications Albuterol (Albuterol 2.5 Mg/3 Ml Neb (Adult)) 2.5 mg INH NOW ONE Stop: 02/25/22 17:48 Last Admin: 02/25/22 18:22 Dose: 2.5 mg Documented by: SIGRID Albuterol (Albuterol 2.5 Mg/3 Ml Neb (Adult)) 20 mg INH NOW ONE Stop: 02/25/22 18:11 Last Admin: 02/25/22 19:33 Dose: 20 mg Documented by: ELEAZAR Albuterol/Ipratropium (Albuterol/Ipratropium 3 Ml Ampul) 3 ml INH NOW ONE Stop: 02/25/22 18:11 Last Admin: 02/25/22 18:22 Dose: 3 ml Documented by: SIGRID Dextrose (Dextrose 50 % In Water 25 Gm/50 Ml Syringe) 25 gm IV NOW ONE Stop: 02/25/22 19:06 Last Admin: 02/25/22 19:54 Dose: Not Given Documented by: RULA Furosemide (Furosemide 40 Mg/4 Ml Vial) 20 mg IV NOW ONE Stop: 02/25/22 19:06 Last Admin: 02/25/22 19:19 Dose: 20 mg Documented by: RULA Furosemide (Furosemide 40 Mg/4 Ml Vial) 20 mg IV NOW ONE Stop: 02/25/22 20:02 Last Admin: 02/25/22 20:13 Dose: 20 mg Documented by: NANY Calcium Gluconate 4.65 meq/ (Sodium Chloride) 60 mls @ 180 mls/hr IV NOW ONE Stop: 02/25/22 18:54 Last Admin: 02/25/22 19:46 Dose: Not Given Documented by: JODI Calcium Gluconate 4.65 meq/ (Sodium Chloride) 110 mls @ 330 mls/hr IV NOW ONE Stop: 02/25/22 19:19 Last Infusion: 02/25/22 19:45 Dose: 0 mls/hr Documented by: Admin: 02/25/22 18:57 Dose: 330 mls/hr Documented by: RULA Insulin Human Regular (Insulin Regular 100 Unit/Ml 3 Ml Vial) 5 unit IV NOW ONE Stop: 02/25/22 19:06 Last Admin: 02/25/22 19:54 Dose: Not Given Documented by: RULA Ipratropium [place] (Ipratropium 0.5 Mg/2.5 Ml Neb) 0.5 mg INH NOW ONE Stop: 02/25/22 17:48 Last Admin: 02/25/22 18:22 Dose: 0.5 mg Documented by: SIGRID Sodium Bicarbonate (Sodium Bicarb 8.4% Syringe) 50 meq IV NOW ONE Stop: 02/25/22 18:36 Last Admin: 02/25/22 18:52 Dose: 50 meq Documented by: RULA Sodium Polystyrene Sulfonate (Sodium Polystyrene Sulfon/Sorb 15 Gm/60 Ml Cup) 30 gm PO NOW ONE Stop: 02/25/22 19:07 Last Admin: 02/25/22 20:36 Dose: 30 gm Documented by: RULA Vital Signs Vital signs: Vital Signs - 8 hr 02/25/22 22:00 02/25/22 22:01 Pulse Rate 99 H 98 H Respiratory Rate 36 H 43 H Blood Pressure 183/87 H Pulse Oximetry 91 91 MDM - SOB/Dyspnea Lab Data Result diagrams: 02/26/22 03:54 02/25/22 23:24 Labs: Lab Results 02/25/22 02/25/22 02/25/22 Range/Units 17:50 18:00 18:00 WBC 7.8 (4.5-11.0) X10^3/uL RBC 4.02 (4.0-5.2) X10^6/uL Hgb 12.7 (12.0-16.0) g/dL Hct 39.6 (36-46) % MCV 98.4 (80-100) fL MCH 31.5 (26-34) PG MCHC 32.0 (30-36) % RDW 14.9 H (11.6-14.8) % Plt Count 166 (150-400) X10^3/uL Neut % (Auto) 79.5 H (50-75) % Lymph % (Auto) 11.0 L (25-40) % [place] % (Auto) 8.8 (3-14) % Eos % (Auto) 0.2 L (2-4) % Baso % (Auto) 0.5 (0-2) % Neut # (Auto) 6200 (3176-8708) /uL Lymph # (Auto) 900 L (6769-9883) /uL [place] # (Auto) 700 (0-900) /uL Eos # (Auto) 0 (0-450) /uL Baso # (Auto) 0 (0-100) /uL PT (10.1-12.7) SECONDS INR (0.9-1.3) ABG pH (7.35-7.45) ABG pCO2 (35-45) mmHg ABG pO2 (80-100) mmHg ABG HCO3 (22-26) mmol/L ABG Total CO2 (21-31) mmol/L ABG O2 Saturation (95-100) % ABG Base Excess (-2-2) mmol/L FiO2 Sodium 128 L (137-145) mmol/L Potassium 7.6 H* (3.4-5.1) mmol/L Chloride 94 L (98-107) mmol/L Carbon Dioxide 31 (22-32) mmol/L BUN 43 H (7-17) mg/dL Creatinine 1.07 H (0.52-1.04) mg/dL Estimated GFR 51.8 L (>60) mL/min BUN/Creatinine Ratio 40.2 H (6-22) Glucose 108 (80-110) mg/dL Lactate (0.7-2.1) mmol/L Calcium 8.6 (8.4-10.2) mg/dL Total Bilirubin 0.5 (0.2-1.3) mg/dL AST 37 H (14-36) IU/L ALT 23 (<35) IU/L Alkaline Phosphatase 89 (38-126) U/L Total Creatine Kinase (30-135) U/L CK-MB (CK-2) CK-MB (CK-2) Rel Index Troponin I (0.01-0.034) ng/mL NT-Pro-B Natriuret Pep (<125) pg/mL Total Protein 6.7 (6.3-8.2) g/dL Albumin 3.8 (3.5-5.0) g/dL Globulin 2.9 (1.7-4.1) g/dL Albumin/Globulin Ratio 1.3 (1.0-2.8) Urine Color Urine Appearance Urine pH (4.5-8.0) Ur Specific [place] (1.000-1.035) Urine Protein (Negative) Urine Glucose (UA) (Negative) g/dL Urine Ketones (NEGATIVE) Urine Occult Blood (Negative) Urine Nitrate (Negative) Urine Bilirubin (NEGATIVE) Urine Urobilinogen (0.2) E.U./dL Ur Leukocyte Esterase (NEGATIVE) Urine RBC (0-5/HPF) Urine WBC (0-5/HPF) Urine Bacteria (None) Hyaline Casts (None) Ur Culture Indicated? SARS-CoV-2 (PCR) Negative (Negative) 02/25/22 02/25/22 02/25/22 Range/Units 18:00 18:00 18:00 WBC (4.5-11.0) X10^3/uL RBC (4.0-5.2) X10^6/uL Hgb (12.0-16.0) g/dL Hct (36-46) % MCV (80-100) fL MCH (26-34) PG MCHC (30-36) % RDW (11.6-14.8) % Plt Count (150-400) X10^3/uL Neut % (Auto) (50-75) % Lymph % (Auto) (25-40) % [place] % (Auto) (3-14) % Eos % (Auto) (2-4) % Baso % (Auto) (0-2) % Neut # (Auto) (5009-2458) /uL Lymph # (Auto) (1966-4952) /uL [place]ove # (Auto) (0-900) /uL Eos # (Auto) (0-450) /uL Baso # (Auto) (0-100) /uL PT 8.9 L (10.1-12.7) SECONDS INR 0.8 L (0.9-1.3) ABG pH (7.35-7.45) ABG pCO2 (35-45) mmHg ABG pO2 (80-100) mmHg ABG HCO3 (22-26) mmol/L ABG Total CO2 (21-31) mmol/L ABG O2 Saturation (95-100) % ABG Base Excess (-2-2) mmol/L FiO2 Sodium (137-145) mmol/L Potassium (3.4-5.1) mmol/L Chloride (98-107) mmol/L Carbon Dioxide (22-32) mmol/L BUN (7-17) mg/dL Creatinine (0.52-1.04) mg/dL Estimated GFR (>60) mL/min BUN/Creatinine Ratio (6-22) Glucose (80-110) mg/dL Lactate 1.5 (0.7-2.1) mmol/L Calcium (8.4-10.2) mg/dL Total Bilirubin (0.2-1.3) mg/dL AST (14-36) IU/L ALT (<35) IU/L Alkaline Phosphatase (38-126) U/L Total Creatine Kinase (30-135) U/L CK-MB (CK-2) CK-MB (CK-2) Rel Index Troponin I (0.01-0.034) ng/mL NT-Pro-B Natriuret Pep 1670 H (<125) pg/mL Total Protein (6.3-8.2) g/dL Albumin (3.5-5.0) g/dL Globulin (1.7-4.1) g/dL Albumin/Globulin Ratio (1.0-2.8) Urine Color Urine Appearance Urine pH (4.5-8.0) Ur Specific [place] (1.000-1.035) Urine Protein (Negative) Urine Glucose (UA) (Negative) g/dL Urine Ketones (NEGATIVE) Urine Occult Blood (Negative) Urine Nitrate (Negative) Urine Bilirubin (NEGATIVE) Urine Urobilinogen (0.2) E.U./dL Ur Leukocyte Esterase (NEGATIVE) Urine RBC (0-5/HPF) Urine WBC (0-5/HPF) Urine Bacteria (None) Hyaline Casts (None) Ur Culture Indicated? SARS-CoV-2 (PCR) (Negative) 02/25/22 02/25/22 02/25/22 Range/Units 18:00 19:32 19:40 WBC (4.5-11.0) X10^3/uL RBC (4.0-5.2) X10^6/uL Hgb (12.0-16.0) g/dL Hct (36-46) % MCV (80-100) fL MCH (26-34) PG MCHC (30-36) % RDW (11.6-14.8) % Plt Count (150-400) X10^3/uL Neut % (Auto) (50-75) % Lymph % (Auto) (25-40) % [place] % (Auto) (3-14) % Eos % (Auto) (2-4) % Baso % (Auto) (0-2) % Neut # (Auto) (0198-3191) /uL Lymph # (Auto) (2261-7193) /uL [place] # (Auto) (0-900) /uL Eos # (Auto) (0-450) /uL Baso # (Auto) (0-100) /uL PT (10.1-12.7) SECONDS INR (0.9-1.3) ABG pH (7.35-7.45) ABG pCO2 (35-45) mmHg ABG pO2 (80-100) mmHg ABG HCO3 (22-26) mmol/L ABG Total CO2 (21-31) mmol/L ABG O2 Saturation (95-100) % ABG Base Excess (-2-2) mmol/L FiO2 Sodium (137-145) mmol/L Potassium 7.4 H* (3.4-5.1) mmol/L Chloride (98-107) mmol/L Carbon Dioxide (22-32) mmol/L BUN (7-17) mg/dL Creatinine (0.52-1.04) mg/dL Estimated GFR (>60) mL/min BUN/Creatinine Ratio (6-22) Glucose (80-110) mg/dL Lactate (0.7-2.1) mmol/L Calcium (8.4-10.2) mg/dL Total Bilirubin (0.2-1.3) mg/dL AST (14-36) IU/L ALT (<35) IU/L Alkaline Phosphatase (38-126) U/L Total Creatine Kinase 56 (30-135) U/L CK-MB (CK-2) TNP CK-MB (CK-2) Rel Index TNP Troponin I < 0.012 (0.01-0.034) ng/mL NT-Pro-B Natriuret Pep (<125) pg/mL Total Protein (6.3-8.2) g/dL Albumin (3.5-5.0) g/dL Globulin (1.7-4.1) g/dL Albumin/Globulin Ratio (1.0-2.8) Urine Color Yellow Urine Appearance Clear Urine pH 5.5 (4.5-8.0) Ur Specific [place] >=1.030 H (1.000-1.035) Urine Protein 3+ H (Negative) Urine Glucose (UA) Negative (Negative) g/dL Urine Ketones Negative (NEGATIVE) Urine Occult Blood Negative (Negative) Urine Nitrate Negative (Negative) Urine Bilirubin Negative (NEGATIVE) Urine Urobilinogen 0.2 (0.2) E.U./dL Ur Leukocyte Esterase Negative (NEGATIVE) Urine RBC None seen (0-5/HPF) Urine WBC 0-1/hpf (0-5/HPF) Urine Bacteria None seen (None) Hyaline Casts 5-10/lpf (None) Ur Culture Indicated? Cult not indicated SARS-CoV-2 (PCR) (Negative) 02/25/22 02/25/22 Range/Units 20:20 20:42 WBC (4.5-11.0) X10^3/uL RBC (4.0-5.2) X10^6/uL Hgb (12.0-16.0) g/dL Hct (36-46) % MCV (80-100) fL MCH (26-34) PG MCHC (30-36) % RDW (11.6-14.8) % Plt Count (150-400) X10^3/uL Neut % (Auto) (50-75) % Lymph % (Auto) (25-40) % [place] % (Auto) (3-14) % Eos % (Auto) (2-4) % Baso % (Auto) (0-2) % Neut # (Auto) (6814-7993) /uL Lymph # (Auto) (9309-7792) /uL [place] # (Auto) (0-900) /uL Eos # (Auto) (0-450) /uL Baso # (Auto) (0-100) /uL PT (10.1-12.7) SECONDS INR (0.9-1.3) ABG pH 7.24 L* (7.35-7.45) ABG pCO2 91.7 H* (35-45) mmHg ABG pO2 54 L (80-100) mmHg ABG HCO3 39 H (22-26) mmol/L ABG Total CO2 42 H (21-31) mmol/L ABG O2 Saturation 79 L* (95-100) % ABG Base Excess 12.0 H (-2-2) mmol/L FiO2 36 Sodium 133 L (137-145) mmol/L Potassium 6.3 H* (3.4-5.1) mmol/L Chloride 94 L (98-107) mmol/L Carbon Dioxide 35 H (22-32) mmol/L BUN 41 H (7-17) mg/dL Creatinine 1.06 H (0.52-1.04) mg/dL Estimated GFR 52.4 L (>60) mL/min BUN/Creatinine Ratio 38.7 H (6-22) Glucose 83 (80-110) mg/dL Lactate (0.7-2.1) mmol/L Calcium 8.6 (8.4-10.2) mg/dL Total Bilirubin (0.2-1.3) mg/dL AST (14-36) IU/L ALT (<35) IU/L Alkaline Phosphatase (38-126) U/L Total Creatine Kinase (30-135) U/L CK-MB (CK-2) CK-MB (CK-2) Rel Index Troponin I (0.01-0.034) ng/mL NT-Pro-B Natriuret Pep (<125) pg/mL Total Protein (6.3-8.2) g/dL Albumin (3.5-5.0) g/dL Globulin (1.7-4.1) g/dL Albumin/Globulin Ratio (1.0-2.8) Urine Color Urine Appearance Urine pH (4.5-8.0) Ur Specific [place] (1.000-1.035) Urine Protein (Negative) Urine Glucose (UA) (Negative) g/dL Urine Ketones (NEGATIVE) Urine Occult Blood (Negative) Urine Nitrate (Negative) Urine Bilirubin (NEGATIVE) Urine Urobilinogen (0.2) E.U./dL Ur Leukocyte Esterase (NEGATIVE) Urine RBC (0-5/HPF) Urine WBC (0-5/HPF) Urine Bacteria (None) Hyaline Casts (None) Ur Culture Indicated? SARS-CoV-2 (PCR) (Negative) Imaging Data Chest x-ray: Radiologist's Impression: Severe COPD. No acute cardiopulmonary disease. ECG Data Attestation: I personally reviewed and interpreted this ECG as follows: (AFib rate 60 beats per minute. Motion artifact. No obvious acute ST elevation. Further details unavailable.) Critical Care Time Critical Care Time Critical Care Time: Yes Total Critical Care Time: 55 Attestation: Critical care time included the initial patient assessment, as well as multiple repeat assessments. Medical records were reviewed. Radiology, EKG and lab data reviewed. Multiple calls were necessary to obtain the correct admitting physician. Patient was informed of the clinical needs. Discharge Plan Departure Patient Disposition: Admitted As Inpatient Clinical Impression: COPD exacerbation, CHF (congestive heart failure), Respiratory failure, Acute hyperkalemia Admit Date/Time: 02/25/22 22:01 Admit Provider: Ej Calderon
[2022-02-25 18:17] LABS: INR 0.8 (0.9-1.3); Prothrombin Time 8.9 SECONDS (10.1-12.7)
[2022-02-25 18:22] LABS: Alanine Aminotransferase 23 IU/L (<35); Albumin 3.8 g/dL (3.5-5.0); Albumin Globulin Ratio 1.3 (1.0-2.8); Alkaline Phosphatase 89 U/L (38-126); Aspartate Aminotransferase 37 IU/L (14-36); BUN Creatinine Ratio 40.2 (6-22); Bilirubin Total 0.5 mg/dL (0.2-1.3); Blood Urea Nitrogen 43 mg/dL (7-17); Calcium 8.6 mg/dL (8.4-10.2); Carbon Dioxide 31 mmol/L (22-32); Chloride 94 mmol/L (98-107); Estimated Glomerular Filt Rate 51.8 mL/min (>60); Globulin 2.9 g/dL (1.7-4.1); Glucose 108 mg/dL (80-110); HEMOLYSIS 37 (0-50); Lactate (Lactic Acid) 1.5 mmol/L (0.7-2.1); Sodium 128 mmol/L (137-145); Total Protein 6.7 g/dL (6.3-8.2)
[2022-02-25] MEDS: ALBUTEROL/IPRATROPIUM 3 ML AMPUL INH (18:22)
[2022-02-25] MEDS: ALBUTEROL 2.5 MG/3 ML NEB (ADULT) INH (18:22)
[2022-02-25] MEDS: IPRATROPIUM 0.5 MG/2.5 ML NEB INH (18:22)
[2022-02-25 18:30] LABS: Creatine Kinase 56 U/L (30-135); NT-proBNP (BNP-Adult 18+) 1670 pg/mL (<125)
[2022-02-25 18:33] LABS: Potassium 7.6 mmol/L (3.4-5.1)
[2022-02-25 18:43] LABS: Troponin I < 0.012 ng/mL (0.01-0.034)
[2022-02-25] MEDS: SODIUM BICARB 8.4% SYRINGE 50 MEQ IV (18:52)
[2022-02-25] MEDS: CALCIUM GLUCONATE IV (18:57)
[2022-02-25] MEDS: SODIUM CHLORIDE 0.9% IV (18:57)
[2022-02-25 19:04] LABS: COVID19 - ADMIT (NP swab/PCR) Negative (Negative)
[2022-02-25] MEDS: FUROSEMIDE 40 MG/4 ML VIAL 20 MG IV ×2 (19:19→20:13)
[2022-02-25] MEDS: SODIUM CHLORIDE 0.9% 1,000 ML 1000 ML IV (19:25)
[2022-02-25] MEDS: ALBUTEROL 2.5 MG/3 ML NEB (ADULT) 20 MG INH (19:33)
[2022-02-25 19:52] LABS: HEMOLYSIS < 15 (0-50)
[2022-02-25 19:57] LABS: Potassium 7.4 mmol/L (3.4-5.1)
[2022-02-25 20:17] LABS: Appearance Urine UA CLEAR; Bilirubin Urine UA NEGATIVE (NEGATIVE); Color Urine UA YELLOW; Glucose Urine UA NEGATIVE (Negative); Ketones Urine UA NEGATIVE (NEGATIVE); Leukocyte Esterase Urine UA NEGATIVE (NEGATIVE); Nitrite Urine UA NEGATIVE (Negative); Occult Blood Urine UA NEGATIVE (Negative); Protein Urine UA 3+ (Negative); Specific Gravity Urine UA >=1.030 (1.000-1.035); Urobilinogen Urine UA 0.2 E.U./dL (0.2)
[2022-02-25 20:23] LABS: Bacteria Urine None Seen; RBC Urine None Seen (0-5/HPF); WBC Urine 0-1/HPF (0-5/HPF); pH Urine UA 5.5 (4.5-8.0)
[2022-02-25 20:24] LABS: Culture Indicated Urine Cult Not Indicated; Hyaline Casts Urine 5-10/LPF
[2022-02-25] MEDS: SODIUM POLYSTYRENE SULFON/SORB 15 GM/60 ML CUP 30 GM PO (20:36)
--- NOTE | 2022-02-25 20:50 | PC.NURSE ---
patient taken off BiPAP per Dr. Doll order. patient tolerating well on 5L NC O2. patient alert and oriented to person and place. patients color and mentation improved after BiPAP. Dr. Mattson aware. no new orders at this time.
[2022-02-25 21:00] LABS: BUN Creatinine Ratio 38.7 (6-22); Blood Urea Nitrogen 41 mg/dL (7-17); Calcium 8.6 mg/dL (8.4-10.2); Carbon Dioxide 35 mmol/L (22-32); Chloride 94 mmol/L (98-107); Estimated Glomerular Filt Rate 52.4 mL/min (>60); Glucose 83 mg/dL (80-110); HEMOLYSIS 25 (0-50); Sodium 133 mmol/L (137-145)
[2022-02-25 21:05] LABS: Potassium 6.3 mmol/L (3.4-5.1)
--- NOTE | 2022-02-25 21:15 | PC.NURSE ---
patients oxygen at 83% on 1L. patient wears 3L NC at home all the time. patient placed on 3L and oxygen improved to 91%. provider aware.
--- NOTE | 2022-02-25 21:30 | PC.NURSE ---
I noticed that the patient was more tachypenic and her color was getting a little more dusky. Dr. Mattson made aware and I had some concern that she might need to go back on BiPAP. Dr. Mattson did not want to put the patient back on BiPAP at this time.
[2022-02-25 21:56] LABS: PO2 ABG 54 mmHg (80-100)
[2022-02-25 21:57] LABS: Fractionated Inspired Oxygen 36; HCO3 ABG 39 mmol/L (22-26); TCO2 ABG 42 mmol/L (21-31)
--- NOTE | 2022-02-25 22:00 | PC.NURSE ---
Dr. Mattson request/verbal order that the patient be placed back on BiPAP. Bonnie and myself placed the patient back on BiPAP and hit resume. we did not change or alter and of the BiPAP settings. patient on BiPAP with FIO2 40% with oxygen sats at 92% and tolerating well. Dr. Mattson aware and no new orders at this time.
--- NOTE | 2022-02-25 22:05 | RT ---
pt awake and alert no distress , currenlty off bipap wants to eat and drink something . RN placed pt back on bipap without knowledge of the machine . i will go evaluate connections
[2022-02-26] VITALS (19 sets, daily range): BP systolic 99–195; BP diastolic 67–104; PULSE 78–100; RESP 20–33; TEMP 36.3–36.9; O2SAT 89–96; BMI 13.4
[2022-02-26 00:07] LABS: BUN Creatinine Ratio 39.6 (6-22); Blood Urea Nitrogen 40 mg/dL (7-17); Calcium 8.2 mg/dL (8.4-10.2); Chloride 88 mmol/L (98-107); Estimated Glomerular Filt Rate 55.4 mL/min (>60); Glucose 150 mg/dL (80-110); HEMOLYSIS < 15 (0-50); Potassium 4.6 mmol/L (3.4-5.1); Sodium 130 mmol/L (137-145)
[2022-02-26 00:09] LABS: Troponin I < 0.012 ng/mL (0.01-0.034)
[2022-02-26 00:11] LABS: Carbon Dioxide 40 mmol/L (22-32)
[2022-02-26 00:16] LABS: NT-proBNP (BNP-Adult 18+) 1200 pg/mL (<125)
--- NOTE | 2022-02-26 01:38 | RT ---
Addendum entered by Lisandro Hutchison 02/26/22 01:49: bipap still on standby , pt is stable easily arousable Original Note: pt having a break from bipap at this time MD awake , pt appears to be at baseline . pt is a chronic co2 retainer , normally sleeps with nasal canula and request not to use bipap at this time . no confusion noted at this time , no respiratory distress noted at this time . bipap remians on standby .
[2022-02-26 04:51] LABS: Add Manual Diff / Slide Review NO; Basophils Absolute Auto 0 /uL (0-100); Basophils Percent Auto 0.3 % (0-2); Eosinophils Absolute Auto 0 /uL (0-450); Eosinophils Percent Auto 0.3 % (2-4); Hematocrit 35.9 % (36-46); Hemoglobin 11.7 g/dL (12.0-16.0); Lymphocytes Absolute Auto 700 /uL (1100-4500); Lymphocytes Percent Auto 10.7 % (25-40); Mean Corpuscular HGB Conc 32.7 % (30-36); Mean Corpuscular Hemoglobin 31.4 PG (26-34); Mean Corpuscular Volume 96.1 fL (80-100); Monocytes Absolute Auto 800 /uL (0-900); Monocytes Percent Auto 11.5 % (3-14); Neutrophils Absolute Auto 5300 /uL (1500-7000); Neutrophils Percent Auto 77.2 % (50-75); Platelet Count 144 X10^3/uL (150-400); Red Blood Cell Count 3.73 X10^6/uL (4.0-5.2); Red Cell Distribution Width 14.3 % (11.6-14.8); White Blood Cell Count 6.9 X10^3/uL (4.5-11.0)
--- NOTE | 2022-02-26 06:51 | PC.NURSE ---
Patient admitted to ICU room 227 at 0250, oriented x3, forgetful of date, able to speak clearly in full sentences, on 3L NC, RR 20-30s, SR/ST, SpO2 >90%, BP 132/82. Denies dyspnea or chest pain. 800ml UOP in [place] for shift.
--- NOTE | 2022-02-26 09:22 | PC.NURSE ---
Addendum entered by Maria Pappas R.N. 02/26/22 19:17: Code status adressed. Comfort care desired. Addendum entered by Maria Pappas R.N. 02/26/22 18:24: 1600-HTN, unable to get call to Dr Ford, however, she is at bedside to evaluate patient. x1 Labatolol order, effective for BP, Pt reports she is feeling at baseline. DC planned for AM. Recheck labs later tonight,. Addendum entered by Maria Pappas R.N. 02/26/22 17:37: 1400-Critical labs rec'd from AM lab draw. K+2.6, 20 IV started and recheck labs for 1999. Home meds restarted. Effexor, Oxycodone, and catapress. On recheck , BP remains elevated. Call into Dr Ford , phone is ringing x1, then hanging up, no option for voicemail. Called into surgery since she was scheduled in endoscopy. Able to get call back Original Note: Am shift Pt is A/o x3, sitting up in bed, frail appearing, NC @ 2-3L SOB with activity. Per report, Pt did not go on bipap once on the floor from ED. Dim to bases, tight with air movement. Pt denies SOB or difficulty breathing. Talked with Dr ford, lab orders obtained. Pt ordered as well.
--- NOTE | 2022-02-26 11:25 | PT.IIE ---
Medical History (Last Reviewed 02/26/22 @ 05:59 by Tomer Mattson MD) Anxiety Aortoiliac occlusive disease COPD (chronic obstructive pulmonary disease) Diarrhea History of respiratory failure Hypertension Tobacco abuse Physical Therapy Inpatient Evaluation/Re-Eval M1 PT/OT-IP Prior Functional Status Start: 02/26/22 12:50 Freq: NEEDED Status: Active Protocol: Document 02/26/22 11:25 AB (Rec: 02/26/22 13:07 AB [id number]) Medical Review Prior Functional Status Medical History Reviewed Yes Communication able to make needs known; [employer] [place] Mobility and Gait pt stated that she is modified independent with transfers but spouse stated that he assists pt by pt holding on to spouse's arm to transfer. pt is w/c bound and uses her electric w/c at home and has a manual w/c for outdoor mobility. spouse stated that pt can ambulate ~ 7 steps at most . pt uses a bedside commode positioned next the the bed. Prior Functional Level (Other details) spouse stated that pt just had a fall with him falling with pt as well when he was assisting pt pt on home O2: 21/2-3L/min Social History Household Members spouse Living Arrangements House Number of Floors (Floors) One Floor Number of Stairs To Enter/Railing? 1 step from the garage and spouse just pushes pt into the house using the a manual w/c Home Environment High Toilet,Tub/Shower Home Equipment Four Wheel Walker,Manual Wheelchair,Power Wheelchair/ Scooter,Bedside Commode,Shower Seat with Backrest,Hand Held Shower,Grab Bars Near Toilet, Grab Bars In Shower M2 PT-IP Current Condition Start: 02/26/22 12:50 Freq: NEEDED Status: Active Protocol: Document 02/26/22 11:25 AB (Rec: 02/26/22 13:07 AB [email or web address]) Physical Therapy Current Condition Current Condition Evaluation Date 02/26/22 Treatment Diagnosis COPD exacerbation; generalized weakness Onset Date 02/25/22 M3 PT-IP Subjective Start: 02/26/22 12:50 Freq: NEEDED Status: Active Protocol: Document 02/26/22 11:25 AB (Rec: 02/26/22 13:07 AB [email or web address]) Subjective Physical Therapy Visit Type Type Initial Evaluation Visit Start Time 11:25 Visit Stop Time 11:56 Total Visit Minutes 31 Number of [employer] Visits 0 Physical Therapy Visit Comments Patient Comments agreed to do PT but apprehensive Therapy Pain Assessment Pain When Pain Assessed At Rest Pain Present Pain Present Pain Reported Location Right Leg Scale Used chronic pain due to her back per pt Pain Management Techniques Distraction,Modification of Treatment,Re-positioning, Timing of Activity with Medications M4 PT-IP Mobility and Gait Start: 02/26/22 12:50 Freq: NEEDED Status: Active Protocol: Document 02/26/22 11:25 AB (Rec: 02/26/22 13:07 [email or web address]) PT-Bed Mobility Assessment Supine to Sit Supine to Sit Standby Assistance,Head of Bed Elevated Sit to Supine Sit to Supine Head of Bed Elevated PT-Transfer Assessment Sit to and From Stand Sit to and from Stand Moderate Assistance,Maximum Assistance,1 Person Assistance Equipment Transfer Assistive Device Gait Belt,Front Wheeled Walker Orthotic/Prosthetic Devices or Brace: No Transfers Transfer Destination Chair Transfer Technique Stand Step Pivot Transfer Ability Level of Assist Moderate Assistance,Maximum Assistance,1 Person Assistance ,Use of Upper Extremities Comments Mobility Comments O2 at 3L/min with O2 sat 90%. completed supine to sit SBA with HOB elevated. pt stated that she uses lots of pillows to elevate HOB up at home. ablet o sit on EOB CGA. pt stated that she is scared of standing. asked nurse to provide SBA for safety. pt completed sit to stand mod to max A and cues and step transfer using FWW mod to max A and max cues. refused further activity. initially refusing to stay up on the chair and agreed afterwards. positioned pt on the chair. call light and table placed within reach. educated pt and spouse regarding use of FWW for transfers at this time. Gait Assessment Comments Gait Comments refused PT-Balance Assessment Sitting Balance and Reactions Static Sitting Balance Ability Good Dynamic Sitting Balance Ability Fair Standing Balance and Reactions Static Standing Balance Ability Fair Dynamic Standing Balance Ability Poor Device Used FWW M5 PT-IP Objective Assessments Start: 02/26/22 12:50 Freq: NEEDED Status: Active Protocol: Document 02/26/22 11:25 AB (Rec: 02/26/22 13:07 [email or web address]) Orientation Orientation/Cognition Level of Alertness Alert Orientation Name,Place,Situation Language Function Ability Hard of Hearing Safety Awareness Decreased Safety Awareness Memory Description Short Term Impaired Gross Range of Motion Lower Extremity ROM Assessment Within Functional Limits Strength Lower Extremity Strength Hip 4-/5 Knee 3+/5 Ankle R ankle DF: 2+/5 Sensation Assessment Sensation Gross Sensation WNL Muscle Tone Muscle Tone WNL Yes M6 PT-IP Treatment Start: 02/26/22 12:50 Freq: NEEDED Status: Active Protocol: Document 02/26/22 11:25 AB (Rec: 02/26/22 13:07 AB [id number]) Physical Therapy Treatment Education Education Provided Safety M7 PT-IP Assessment and Plan Start: 02/26/22 12:50 Freq: NEEDED Status: Active Protocol: Document 02/26/22 11:25 AB (Rec: 02/26/22 13:07 AB [id number]) PT Summary Assessment and Plan Potential Rehabilitation Potential Fair Status of Condition at Evaluation Evolving Summary Assessment Summary pt requiring mod to max A for transfers using FWW and unable to tolerate much activity. pt has been limited with mobility prior to admission and has mostly been w/c bound. pt plans to go home and spouse to assist her. will conduct caregiver training when appropriate. pt will benefit from HHPT to improve overall strength and mobility independence. Goals Bed Mobility Goal Independent Transfer Goal Independent,Front Wheeled Walker Gait Goal Minimal Assistance Gait Distance 15 Days to Meet Goals 10 Frequency of Treatment Frequency Of Treatment Once a Day Treatment Plan Physical Therapy Treatment Plan Bed Mobility Training,Transfer Training,Gait Training, Therapeutic Exercise,Balance Retraining,Discharge Planning, Hot or Cold Pack,Neuromuscular Re-ed,Coordination Retraining Precautions Other Precautions O2 sat Recommendations To Nursing Amount of Assist Needed 1 Person Assist Discharge Recommendations PT Discharge Recommendations Home with 16/06 Assist Available,Home Health Equipment Needed for Home Before FWW Discharge Transportation Needs at Discharge Wheelchair/Cabulance
[2022-02-26 12:10] LABS: Add Manual Diff / Slide Review NO; Basophils Absolute Auto 0 /uL (0-100); Basophils Percent Auto 0.6 % (0-2); Eosinophils Absolute Auto 0 /uL (0-450); Eosinophils Percent Auto 0.2 % (2-4); Hematocrit 37.3 % (36-46); Hemoglobin 12.3 g/dL (12.0-16.0); Lymphocytes Absolute Auto 800 /uL (1100-4500); Lymphocytes Percent Auto 11.5 % (25-40); Mean Corpuscular Hemoglobin 31.4 PG (26-34); Mean Corpuscular Volume 95.3 fL (80-100); Monocytes Absolute Auto 700 /uL (0-900); Monocytes Percent Auto 9.7 % (3-14); Neutrophils Absolute Auto 5300 /uL (1500-7000); Platelet Count 167 X10^3/uL (150-400); Red Blood Cell Count 3.91 X10^6/uL (4.0-5.2); Red Cell Distribution Width 14.7 % (11.6-14.8); White Blood Cell Count 6.8 X10^3/uL (4.5-11.0)
[2022-02-26] MEDS: OXYCODONE IR 10 MG TABLET 20 MG PO ×2 (12:46→17:51)
[2022-02-26] MEDS: SODIUM CHLORIDE 0.9% FLUSH 10 ML IV ×2 (12:46→22:09)
--- NOTE | 2022-02-26 12:54 | PM.HP.1 ---
History of Present Illness History of Present Illness Date Patient Seen: 02/26/22 Time Patient Seen: 12:54 Chief complaint: SOB/ h/o COPD Narrative: 61-year-old female with oxygen-dependent COPD and longstanding electrolyte issues due to chronic diarrhea from lymphocytic colitis is admitted from the ED secondary to hyperkalemia. She does not use CPAP or BiPAP at home. She is DNR/DNI. During patient's last inpatient hospitalization, she was noted to have hypokalemia and was discharged on 09/26/21 on her usual dose of potassium 60 mEq p.o. q.day. Patient is not on a diuretic. She has not had follow-up labs since that discharge, as she is mostly home-bound and completed her visits via telemedicine. Initial potassium in the ED was 7.6. With calcium carbonate, bicarbonate, albuterol, and Lasix her potassium reduced to 4.64 prior to transfer to the ICU. She denied chest pain and no acute EKG changes were noted. Initially, she was speaking only in single words, but is now back to her baseline. She continues to feel weak but is eating normally and denies chest pain or unusual shortness of breath. She is oxygen dependent and is on 3 L per nasal cannula, usually she is on 2 L. Vital signs in the ED included a pulse 74, oxygen saturation 85% on room air.? Initial ABG revealed a pH of 7.12, pCO2 >100. She was started on BiPAP and repeat ABG revealed a pH of 7.24, pCO2 91.7, and pO2 of 54. She was tranferred to the floor on cannulated oxygen. Other notable labs include an elevated BNP of 1200, she was given lasix prior to transfer to the ICU. There were no clinical signs of CHF.? Chest x-ray showed severe COPD.? 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 5 Laminectomy (1984), further surgery (1995, 1997), cervical discectomy and fusion C5-6, C6-7,? redo left L4-L5 partial hemilaminectomy and microdiscectomy? (02/2005) Neck surgery (11/2002) Hysterectomy Tonsillectomy Left Cataract removal (2016) Cataract Extraction right 10/29/16 Family History: Father: Hypertension,ETOH Mother: ? Heart Disease, Hyperlipidemia,ovarian cancer,HTN Siblings:ETOH Social History: Marital Status: Children: Occupation: [employer] Household Members: Osorio spouse 07/13/43 Education: GED Patient History Medical History (Updated 02/26/22 @ 06:17 by Tomer Mattson MD) Anxiety Aortoiliac occlusive disease COPD (chronic obstructive pulmonary disease) Diarrhea History of respiratory failure Hypertension Tobacco abuse Surgical History History of aorto-femoral bypass History of back surgery History of carpal tunnel release History of cataract removal with insertion of prosthetic lens History of colonoscopy History of hysterectomy Family & Social History Family History Brother Cancer Family/Other Cancer Social History: household members spouse Prior Living Arrangements House Safety & Behavioral: Feels Safe in Current Yes Environment Been Physically Hurt or No Threatened By a Person Suicidal Ideation Description None Suicide Plan Description No Plan Tobacco & Substance use: Tobacco type cigarettes Smoking Status Current every day smoker alcohol intake current alcohol intake frequency 3 or more drinks per day Substance Use Type does not use Meds Home Medications and Allergies Home Medications Medication Instructions Recorded Confirmed Type cyclobenzaprine 10 mg tablet 10 mg PO HSP #0 06/08/13 02/26/22 History potassium chloride 10 mEq 60 meq PO QDAY #0 06/08/13 06/21/21 History tablet,extended release(part/cryst) (Klor-Con M) oxycodone 5 mg capsule 20 mg PO 5XD 12/29/19 02/26/22 History Adult Low Dose Aspirin 81 mg PO DAILY 09/20/20 02/26/22 History albuterol sulfate 2.5 mg INHALATION Q4H PRN 09/20/20 06/21/21 History albuterol sulfate 90 mcg/actuation 2 puff INHALATION Q4-6H PRN 09/20/20 06/21/21 History aerosol inhaler (Ventolin HFA) atorvastatin 40 mg tablet 40 mg PO QPM 09/20/20 02/26/22 History beclomethasone dipropionate 40 2 inh INHALATION BID 09/20/20 06/21/21 History mcg/actuation HFA breath activated aerosol (Qvar RediHaler) ciclesonide 160 mcg/actuation 2 puff INHALATION BID 09/20/20 06/21/21 History aerosol inhaler diltiazem HCl 120 mg 120 mg PO DAILY 09/20/20 02/26/22 History capsule,extended release 24 hr hydroxyzine HCl 25 mg tablet 25 mg PO DAILY 09/20/20 06/21/21 History oxycodone 10 mg tablet 10 mg PO DAILY 09/20/20 06/21/21 History tiotropium bromide 2.5 2 puff INHALATION BID 09/20/20 06/21/21 History mcg/actuation mist for inhalation (Spiriva Respimat) venlafaxine 150 mg 150 mg PO DAILY 09/20/20 02/26/22 History capsule,extended release 24 hr venlafaxine 75 mg capsule,extended 75 mg PO DAILY 09/20/20 02/26/22 History release 24 hr clonidine HCl 0.1 mg tablet 0.4 mg PO BID #60 tab 09/26/20 02/26/22 Rx prednisone 20 mg tablet 40 mg PO DAILY #60 tab 09/26/20 06/21/21 Rx gabapentin 100 mg capsule 100 mg PO DAILY 02/26/22 02/26/22 History magnesium oxide 200 mg PO BID 02/26/22 02/26/22 History quetiapine 25 mg tablet 75 mg PO BEDTIME 02/26/22 02/26/22 History Allergies Allergy/AdvReac Type Severity Reaction Status Date / Time meclizine Allergy Verified 09/20/20 14:28 naproxen [From Naprosyn] Allergy Verified 09/20/20 14:28 Review of Systems Review of Systems Narrative: All remaining ROS were reviewed and negative except as addressed. Exam Vital Signs (past 8 hours): - 02/26/22 05:06 02/26/22 06:23 02/26/22 09:11 Temperature 98.5 F Pulse Rate 92 H 93 H 94 H Respiratory Rate 22 28 H Blood Pressure 143/88 H 143/94 H Pulse Oximetry 96 96 95 Fraction of Inspired Oxygen 40 Oxygen Delivery Method Nasal Cannula Oxygen Flow Rate 3 Narrative Exam Narrative: GENERAL: Alert and oriented, appearing older than stated age and in no acute distress, thin, weak. HEENT: Head normocephalic/atraumatic. Extraocular movements intact. LUNGS: Oxygen cannula in place, 3 L. Diminished inspiratory effort but no wheezes, rhonchi or rales. CV: Normal S1 and S2 with regular rate and rhythm, no audible murmurs, rubs or gallops. ABDOMEN: Soft, non-tender, non-distended, no organomegaly. Positive bowel sounds. EXTREMITIES: No clubbing, cyanosis, or edema. NEURO: Cranial nerves II through XII grossly intact, no focal deficits. PSYCH: Alert and oriented x 3. SKIN: No concerning lesions. Objective Labs Result Diagrams: 02/26/22 11:38 02/26/22 11:38 Labs: Laboratory Results - last 24 hr 02/25/22 02/25/22 02/25/22 17:50 18:00 18:00 WBC 7.8 RBC 4.02 Hgb 12.7 Hct 39.6 MCV 98.4 MCH 31.5 MCHC 32.0 RDW 14.9 H Plt Count 166 Neut % (Auto) 79.5 H Lymph % (Auto) 11.0 L [place] % (Auto) 8.8 Eos % (Auto) 0.2 L Baso % (Auto) 0.5 Neut # (Auto) 6200 Lymph # (Auto) 900 L [place] # (Auto) 700 Eos # (Auto) 0 Baso # (Auto) 0 PT INR ABG pH ABG pCO2 ABG pO2 ABG HCO3 ABG Total CO2 ABG O2 Saturation ABG Base Excess FiO2 Sodium 128 L Potassium 7.6 H* Chloride 94 L Carbon Dioxide 31 BUN 43 H Creatinine 1.07 H Estimated GFR 51.8 L BUN/Creatinine Ratio 40.2 H Glucose 108 Lactate Calcium 8.6 Total Bilirubin 0.5 AST 37 H ALT 23 Alkaline Phosphatase 89 Total Creatine Kinase CK-MB (CK-2) CK-MB (CK-2) Rel Index Troponin I NT-Pro-B Natriuret Pep Total Protein 6.7 Albumin 3.8 Globulin 2.9 Albumin/Globulin Ratio 1.3 Urine Color Urine Appearance Urine pH Ur Specific [place] Urine Protein Urine Glucose (UA) Urine Ketones Urine Occult Blood Urine Nitrate Urine Bilirubin Urine Urobilinogen Ur Leukocyte Esterase Urine RBC Urine WBC Urine Bacteria Hyaline Casts Ur Culture Indicated? Nasal Screen MRSA (PCR) SARS-CoV-2 (PCR) Negative 02/25/22 02/25/22 02/25/22 18:00 18:00 18:00 WBC RBC Hgb Hct MCV MCH MCHC RDW Plt Count Neut % (Auto) Lymph % (Auto) [place] % (Auto) Eos % (Auto) Baso % (Auto) Neut # (Auto) Lymph # (Auto) [place] # (Auto) Eos # (Auto) Baso # (Auto) PT 8.9 L INR 0.8 L ABG pH ABG pCO2 ABG pO2 ABG HCO3 ABG Total CO2 ABG O2 Saturation ABG Base Excess FiO2 Sodium Potassium Chloride Carbon Dioxide BUN Creatinine Estimated GFR BUN/Creatinine Ratio Glucose Lactate 1.5 Calcium Total Bilirubin AST ALT Alkaline Phosphatase Total Creatine Kinase CK-MB (CK-2) CK-MB (CK-2) Rel Index Troponin I NT-Pro-B Natriuret Pep 1670 H Total Protein Albumin Globulin Albumin/Globulin Ratio Urine Color Urine Appearance Urine pH Ur Specific [place] Urine Protein Urine Glucose (UA) Urine Ketones Urine Occult Blood Urine Nitrate Urine Bilirubin Urine Urobilinogen Ur Leukocyte Esterase Urine RBC Urine WBC Urine Bacteria Hyaline Casts Ur Culture Indicated? Nasal Screen MRSA (PCR) SARS-CoV-2 (PCR) 02/25/22 02/25/22 02/25/22 18:00 19:32 19:40 WBC RBC Hgb Hct MCV MCH MCHC RDW Plt Count Neut % (Auto) Lymph % (Auto) [place] % (Auto) Eos % (Auto) Baso % (Auto) Neut # (Auto) Lymph # (Auto) [place] # (Auto) Eos # (Auto) Baso # (Auto) PT INR ABG pH ABG pCO2 ABG pO2 ABG HCO3 ABG Total CO2 ABG O2 Saturation ABG Base Excess FiO2 Sodium Potassium 7.4 H* Chloride Carbon Dioxide BUN Creatinine Estimated GFR BUN/Creatinine Ratio Glucose Lactate Calcium Total Bilirubin AST ALT Alkaline Phosphatase Total Creatine Kinase 56 CK-MB (CK-2) TNP CK-MB (CK-2) Rel Index TNP Troponin I < 0.012 NT-Pro-B Natriuret Pep Total Protein Albumin Globulin Albumin/Globulin Ratio Urine Color Yellow Urine Appearance Clear Urine pH 5.5 Ur Specific [place] >=1.030 H Urine Protein 3+ H Urine Glucose (UA) Negative Urine Ketones Negative Urine Occult Blood Negative Urine Nitrate Negative Urine Bilirubin Negative Urine Urobilinogen 0.2 Ur Leukocyte Esterase Negative Urine RBC None seen Urine WBC 0-1/hpf Urine Bacteria None seen Hyaline Casts 5-10/lpf Ur Culture Indicated? Cult not indicated Nasal Screen MRSA (PCR) SARS-CoV-2 (PCR) 02/25/22 02/25/22 02/25/22 20:20 20:42 23:24 WBC RBC Hgb Hct MCV MCH MCHC RDW Plt Count Neut % (Auto) Lymph % (Auto) [place] % (Auto) Eos % (Auto) Baso % (Auto) Neut # (Auto) Lymph # (Auto) [place] # (Auto) Eos # (Auto) Baso # (Auto) PT INR ABG pH 7.24 L* ABG pCO2 91.7 H* ABG pO2 54 L ABG HCO3 39 H ABG Total CO2 42 H ABG O2 Saturation 79 L* ABG Base Excess 12.0 H FiO2 36 Sodium 133 L 130 L Potassium 6.3 H* 4.6 D Chloride 94 L 88 L Carbon Dioxide 35 H 40 H* BUN 41 H 40 H Creatinine 1.06 H 1.01 Estimated GFR 52.4 L 55.4 L BUN/Creatinine Ratio 38.7 H 39.6 H Glucose 83 150 H Lactate Calcium 8.6 8.2 L Total Bilirubin AST ALT Alkaline Phosphatase Total Creatine Kinase CK-MB (CK-2) CK-MB (CK-2) Rel Index Troponin I NT-Pro-B Natriuret Pep 1200 H Total Protein Albumin Globulin Albumin/Globulin Ratio Urine Color Urine Appearance Urine pH Ur Specific [place] Urine Protein Urine Glucose (UA) Urine Ketones Urine Occult Blood Urine Nitrate Urine Bilirubin Urine Urobilinogen Ur Leukocyte Esterase Urine RBC Urine WBC Urine Bacteria Hyaline Casts Ur Culture Indicated? Nasal Screen MRSA (PCR) SARS-CoV-2 (PCR) 02/25/22 02/26/22 02/26/22 23:24 03:00 03:54 WBC 6.9 RBC 3.73 L Hgb 11.7 L Hct 35.9 L MCV 96.1 MCH 31.4 MCHC 32.7 RDW 14.3 Plt Count 144 L Neut % (Auto) 77.2 H Lymph % (Auto) 10.7 L [place] % (Auto) 11.5 Eos % (Auto) 0.3 L Baso % (Auto) 0.3 Neut # (Auto) 5300 Lymph # (Auto) 700 L [place] # (Auto) 800 Eos # (Auto) 0 Baso # (Auto) 0 PT INR ABG pH ABG pCO2 ABG pO2 ABG HCO3 ABG Total CO2 ABG O2 Saturation ABG Base Excess FiO2 Sodium Potassium Chloride Carbon Dioxide BUN Creatinine Estimated GFR BUN/Creatinine Ratio Glucose Lactate Calcium Total Bilirubin AST ALT Alkaline Phosphatase Total Creatine Kinase CK-MB (CK-2) CK-MB (CK-2) Rel Index Troponin I < 0.012 NT-Pro-B Natriuret Pep Total Protein Albumin Globulin Albumin/Globulin Ratio Urine Color Urine Appearance Urine pH Ur Specific [place] Urine Protein Urine Glucose (UA) Urine Ketones Urine Occult Blood Urine Nitrate Urine Bilirubin Urine Urobilinogen Ur Leukocyte Esterase Urine RBC Urine WBC Urine Bacteria Hyaline Casts Ur Culture Indicated? Nasal Screen MRSA (PCR) Negative for mrsa SARS-CoV-2 (PCR) 02/26/22 11:38 WBC 6.8 RBC 3.91 L Hgb 12.3 Hct 37.3 MCV 95.3 MCH 31.4 MCHC 33.0 RDW 14.7 Plt Count 167 Neut % (Auto) 78.0 H Lymph % (Auto) 11.5 L [place] % (Auto) 9.7 Eos % (Auto) 0.2 L Baso % (Auto) 0.6 Neut # (Auto) 5300 Lymph # (Auto) 800 L [place] # (Auto) 700 Eos # (Auto) 0 Baso # (Auto) 0 PT INR ABG pH ABG pCO2 ABG pO2 ABG HCO3 ABG Total CO2 ABG O2 Saturation ABG Base Excess FiO2 Sodium Potassium Chloride Carbon Dioxide BUN Creatinine Estimated GFR BUN/Creatinine Ratio Glucose Lactate Calcium Total Bilirubin AST ALT Alkaline Phosphatase Total Creatine Kinase CK-MB (CK-2) CK-MB (CK-2) Rel Index Troponin I NT-Pro-B Natriuret Pep Total Protein Albumin Globulin Albumin/Globulin Ratio Urine Color Urine Appearance Urine pH Ur Specific [place] Urine Protein Urine Glucose (UA) Urine Ketones Urine Occult Blood Urine Nitrate Urine Bilirubin Urine Urobilinogen Ur Leukocyte Esterase Urine RBC Urine WBC Urine Bacteria Hyaline Casts Ur Culture Indicated? Nasal Screen MRSA (PCR) SARS-CoV-2 (PCR) Assessment & Plan Assessment & Plan narrative: 1. Hyperkalemia, likely iatrogenic from potassium supplementation for diarrhea-induced hypokalemia Plan: Have discontinued potassium, will trend labs. Anticipate discharge without potassium and close outpatient follow-up of labs. 2. Acute hypoxic respiratory failure secondary to COPD Plan: Continue supplemental oxygen. Treating underlying diseases with usual home medications. 3. Elevated BNP, acute in setting of history of possible alcohol induced cardiomyopathy, congestive heart failure, and atrophic right renal artery and vein -Dr. Mclaughlin, cardiology, consulting in outpatient setting. Plan: Level likely elevated due to chronic issues as patient does not seem to be acutely fluid overloaded and chest x-ray does not show infiltrates. Will trend lab. 4. History of elevated D-dimer, chronic Plan: Has had work-up by hematology on 06/21/21. Workup for PE/DVT negative. Hematology thought elevation likely multifactorial from COPD, peripheral vascular disease, cardiac disease, smoking, and alcohol use. Will recheck this lab for trend. 5. Weakness accompanied by pain, profound and likely secondary to claudication plan: Patient has a long smoking history and is not interested in quitting. Will treat symptoms with pain control via usual home oxycodone. PT consult. 6. Chronic pain syndrome Plan: Continue home oxycodone. 7. Hypomagnesemia, chronic, likely secondary to diarrhea and alcohol abuse Plan: Will recheck lab. Patient is currently on supplements, will titrate if needed. 8. Protein calorie malnutrition, chronic, likely secondary to alcohol abuse and lymphocytic colitis Plan: Patient is on boost shakes at home. She has had a workup by GI, they are following her clinically, will continue that in outpatient setting. 9. Elevated alkaline phosphatase Plan: Has been referred to Hematology/Oncology in the outpatient setting. Will trend lab while in the hospital. 9. Tobacco dependence Plan: Nicoderm 10. Alcohol dependence Plan: CIWA protocol. 11. Hyperlipidemia, chronic Plan: Continue home statin. 12. Depression/ anxiety Plan: Continue home medications. Code: DNR / DNI Diet: cardiac DVT: lovenox COVID: negative Dispo: Anticpate 1-2 nights.
[2022-02-26] MEDS: VENLAFAXINE ER 75 MG CAP 225 MG PO (13:37)
[2022-02-26] MEDS: cloNIDine 0.1 MG TABLET PO (13:37)
[2022-02-26 13:47] LABS: Alanine Aminotransferase 21 IU/L (<35); Albumin 3.4 g/dL (3.5-5.0); Albumin Globulin Ratio 1.3 (1.0-2.8); Alkaline Phosphatase 82 U/L (38-126); Aspartate Aminotransferase 36 IU/L (14-36); BUN Creatinine Ratio 35.6 (6-22); Bilirubin Total 0.4 mg/dL (0.2-1.3); Blood Urea Nitrogen 31 mg/dL (7-17); Calcium 7.8 mg/dL (8.4-10.2); Chloride 80 mmol/L (98-107); Estimated Glomerular Filt Rate > 60.0 mL/min (>60); Globulin 2.7 g/dL (1.7-4.1); Glucose 132 mg/dL (80-110); HEMOLYSIS < 15 (0-50); Sodium 130 mmol/L (137-145); Total Protein 6.1 g/dL (6.3-8.2)
[2022-02-26 13:55] LABS: Carbon Dioxide 41 mmol/L (22-32); NT-proBNP (BNP-Adult 18+) 1870 pg/mL (<125); Potassium 2.6 mmol/L (3.4-5.1)
[2022-02-26] MEDS: POTASSIUM CHLORIDE IN WATER 10 MEQ/100 ML PIGGYBACK 100 MEQ IV ×2 (15:10→16:44)
--- NOTE | 2022-02-26 16:46 | CM.DANOTE ---
DCP Assessment: Patient is a 61 yr old female who was admitted for COPD exacerbation. CM met with patient at the bedside and explained role. Patient was A&O x3 when CM met with her. patient states she is wheel chair bound at baseline but does move herself form her chair to toilet and to and from her bed with minimal assistance from her Osorio. Patient does so the cooking and shopping but the patient states she does all other ADLs. patient currently lives in a single level home here in [place] with her Osorio. CM asked the patient about going to SNF at [place] to gain strength after her hospitalization and she said clearly, I do not want to go to SNF I want to go home. CM asked the patient about having HH services she said NO. CM department is available to help arrange this if the patient changes her mind. patients Osorio is wanting the patient to go to SNF but patient wants to go home. pT recommended home with assistance and HH. however the patient still does not want HH services. I: [facility] and self pay PCP: Dr Ford Plan: DC home with providing transport- no identified DC planning needs at this time. Cm department will follow to assist with any new DC planning needs that may arise. Denise Larsen RNcomputer operator Discharge Planning/Care Management Discharge Assessment Start: 02/26/22 16:34 Freq: Status: Active Protocol: Document 02/26/22 16:34 HS (Rec: 02/26/22 16:45 HS [id number]) Discharge Planning Assessment Assigned College Admissions Counselor Denise Larsen RNcomputer operator DPOA/Assigned Designee Name Osorio Monroe Contact Information [phone] Advance Directives? Yes: POLST Advance Directives on File No History Provided By Patient,Significant Other, Medical Record Has Patient been admitted in last 30 No days? Prior Living Arrangements House Household Members spouse Type of transporation used prior to Relies on Others admit Independent with ADL's Yes: patient states she is independent with ADLS Is patient alert and oriented? Yes Caregiver for Another No DME Already Rented / Owned Wheelchair Barriers to Discharge No Comment is primary caregiver. patient stated she dose not want HH or SNF she just wants to go home when ready. Discharge Plan Home Transportation Arrangement Spouse. Referrals Initiated None needed Additional Comment Patient does not want HH or SNF Whiteboard Updated in Patient Room with Yes name and ext. # of College Admissions Counselor Review Status In Process Next Review Type Continued Stay Review
[2022-02-26] MEDS: LABETALOL 20 MG/4 ML SYRINGE 10 MG IV (18:03)
[2022-02-26 20:47] LABS: BUN Creatinine Ratio 36.8 (6-22); Blood Urea Nitrogen 35 mg/dL (7-17); Calcium 7.6 mg/dL (8.4-10.2); Chloride 79 mmol/L (98-107); Estimated Glomerular Filt Rate 59.4 mL/min (>60); Glucose 149 mg/dL (80-110); HEMOLYSIS < 15 (0-50); Potassium 3.1 mmol/L (3.4-5.1); Sodium 131 mmol/L (137-145)
[2022-02-26 20:58] LABS: Carbon Dioxide 45 mmol/L (22-32)
[2022-02-26] MEDS: cloNIDine 0.1 MG TABLET 0.4 MG PO (21:00)
[2022-02-26] MEDS: QUETIAPINE 25 MG TABLET 75 MG PO (21:01)
[2022-02-26] MEDS: DOCUSATE 100 MG CAPSULE PO (21:01)
[2022-02-26] MEDS: NICOTINE 21 MG PATCH TOP (22:07)
[2022-02-26] MEDS: POTASSIUM CHLORIDE 20 MEQ/15 ML UDC PO (22:08)
[2022-02-26] MEDS: ALBUTEROL 2.5 MG/3 ML NEB (ADULT) INH (22:10)
--- NOTE | 2022-02-26 22:19 | PC.NURSE ---
Addendum entered by Mignon Page R.N. 02/27/22 06:15: 0525 Dr. Ford notified of critical lab values: Potassium at 2.5, CO2 at 44. Orders received for Potassium riders, EKG, chest xray, and administration of Cardizem CD 120 mg dose now, and hold 0900 dose, for elevated BP 176/97, HR 102. Waffle cushion placed under patient due to low BMI. Patient requesting snack and given Ensure Clear and yogurt. Addendum entered by Mignon Page R.N. 02/26/22 23:52: Patient with decreased work of breathing after RT treatment. O2 reduced to 1.5L from 3L. Patient sleeping after routine scheduled hs medications. O2 sats @ 95% after breathing treatment. O2 sats prior to treatment 89-90% om 1.5L. Original Note: Dr. Ford notified of serum CO2 Critical value of 45. Discussed with MD patient's recemt complaint of shortness of breath and receiving RT treatment currently. Discussed possibility of patient needing Bipap tonight and orders received for Bipap if needed. CIWA precautions in force per new MD orders. RT states she feels patient would benefit from Bipap.
[2022-02-27] VITALS (32 sets, daily range): BP systolic 133–187; BP diastolic 80–110; PULSE 74–102; RESP 10–64; TEMP 36.3–37.2; O2SAT 86–99
[2022-02-27] MEDS: OXYCODONE IR 10 MG TABLET 20 MG PO ×5 (04:25→20:34)
[2022-02-27 04:37] LABS: Add Manual Diff / Slide Review NO; Basophils Absolute Auto 0 /uL (0-100); Basophils Percent Auto 0.3 % (0-2); Eosinophils Absolute Auto 0 /uL (0-450); Eosinophils Percent Auto 0.8 % (2-4); Hemoglobin 13.6 g/dL (12.0-16.0); Lymphocytes Absolute Auto 900 /uL (1100-4500); Lymphocytes Percent Auto 15.8 % (25-40); Mean Corpuscular HGB Conc 33.3 % (30-36); Mean Corpuscular Hemoglobin 31.5 PG (26-34); Mean Corpuscular Volume 94.7 fL (80-100); Monocytes Absolute Auto 600 /uL (0-900); Neutrophils Absolute Auto 3900 /uL (1500-7000); Neutrophils Percent Auto 72.1 % (50-75); Platelet Count 131 X10^3/uL (150-400); Red Blood Cell Count 4.33 X10^6/uL (4.0-5.2); Red Cell Distribution Width 14.1 % (11.6-14.8); White Blood Cell Count 5.5 X10^3/uL (4.5-11.0)
[2022-02-27 04:41] LABS: D Dimer 762 ng/mL (<230)
[2022-02-27 04:45] LABS: Alanine Aminotransferase 21 IU/L (<35); Albumin 3.4 g/dL (3.5-5.0); Albumin Globulin Ratio 1.2 (1.0-2.8); Alkaline Phosphatase 82 U/L (38-126); Aspartate Aminotransferase 34 IU/L (14-36); BUN Creatinine Ratio 39.7 (6-22); Bilirubin Total 0.5 mg/dL (0.2-1.3); Blood Urea Nitrogen 29 mg/dL (7-17); Calcium 8.2 mg/dL (8.4-10.2); Chloride 80 mmol/L (98-107); Estimated Glomerular Filt Rate > 60.0 mL/min (>60); Globulin 2.8 g/dL (1.7-4.1); Glucose 113 mg/dL (80-110); HEMOLYSIS < 15 (0-50); Magnesium 1.4 mg/dL (1.6-2.3); Sodium 131 mmol/L (137-145); Total Protein 6.2 g/dL (6.3-8.2)
[2022-02-27 04:52] LABS: NT-proBNP (BNP-Adult 18+) 2840 pg/mL (<125)
[2022-02-27 04:56] LABS: Carbon Dioxide 44 mmol/L (22-32); Potassium 2.5 mmol/L (3.4-5.1)
--- NOTE | 2022-02-27 05:24 | DI.RAD.S_ITS ---
PROCEDURE: XR CHEST 1V INDICATIONS: Shortness of breath with elevated serum CO2 TECHNIQUE: One view of the chest was acquired. COMPARISON: [facility], CR, XR CHEST 1V, 02/25/2022, 17:48. FINDINGS: Surgical changes and devices: Stable postsurgical changes of the lower cervical spine. Surgical clips project over the right upper quadrant and mid upper abdomen. Lungs and pleura: Redemonstration of hyperaeration and flattening of the bilateral hemidiaphragms. Changes of severe upper lobe predominant pulmonary emphysema with suspected bullous disease of the upper lung zones bilaterally. Minimal patchy medial right basilar opacities unchanged and likely represent atelectasis. No new focal airspace disease seen. No definite pneumothorax. No substantial pleural effusion. Mediastinum: Mediastinal contours appear normal. Heart size is normal. Bones and chest wall: No suspicious bony lesions. Overlying soft tissues appear unremarkable. IMPRESSION: 1. Stable cardiopulmonary evaluation with changes of severe pulmonary emphysema. No focal airspace disease seen. No evidence for acute cardiopulmonary abnormalities. Dictated by: Kee Schultz M.D. on 02/27/2022 at 7:32 Approved by: Kee Schultz M.D. on 02/27/2022 at 7:37
[2022-02-27] MEDS: MAGNESIUM OXIDE 400 MG TABLET 200 MG PO ×3 (05:44→20:34)
[2022-02-27] MEDS: POTASSIUM CHLORIDE IN WATER 10 MEQ/100 ML PIGGYBACK 100 MEQ IV ×4 (05:45→09:29)
--- NOTE | 2022-02-27 05:45 | P.PN_ITS ---
Subjective Subjective Date Patient Seen: 02/27/22 Time Patient Seen: 05:45 Interval history: Since admission, potassium has actually dropped and patient has needed to be repleted over the last 18 hours, she is again critically low this morning, giving IV potassium now. Magnesium was also checked with the morning labs and found to be low, replacing that now as well. Clinically, she came in in respiratory acidosis and seems to be improving with reduced oxygen needs and resolution of her acute hypoxia, she was down to 1.5 L of oxygen this morning but nursing just turned her back up to 2 L which is her baseline. She denies chest pain or shortness of breath beyond her baseline. She does not seem to be fluid overloaded and is without signs of peripheral edema or crackles. She has not received Lasix since the ED for treatment of hyperkalemia. She has not been getting maintenance fluids otherwise. In addition, her blood pressure has been elevated since admission and uncontrolled on her usual medications. She was given labetalol 10 mg IV x1 last night at approximately 6:30 p.m. and that did bring her pressures down nicely overnight. This morning, she again has uncontrolled hypertension that did not respond to her chronic oxycodone. Order was given for her 9 am diltiazem to be given now. Otherwise she had some rest overnight. Appetite has been good, denies nausea or vomiting. Pain is controlled with oxycodone at usual doses. She continues to be weak. Breathing is at baseline. Exam Vital Signs (past 8 hours): - 02/26/22 22:10 02/26/22 22:35 02/27/22 00:51 Temperature 97.7 F 97.3 F L Pulse Rate 93 H 92 H 88 Respiratory Rate 26 H 28 H 40 H Blood Pressure 99/67 163/89 H Pulse Oximetry 90 L 93 93 02/27/22 04:15 02/27/22 05:14 Temperature 97.8 F Pulse Rate 96 H 95 H Respiratory Rate 53 H Blood Pressure 178/103 H 176/97 H Pulse Oximetry 95 Fraction of Inspired Oxygen 40 Oxygen Delivery Method Nasal Cannula Oxygen Flow Rate 2 Narrative Exam Narrative: GENERAL:? Alert and oriented, appearing older than stated age and in no acute distress, thin, weak. HEENT:? Head normocephalic/atraumatic.? Extraocular movements intact. LUNGS: ? Oxygen cannula in place, 2 L.? Diminished inspiratory effort but no wheezes, rhonchi or rales. CV:? Normal S1 and S2 with regular rate and rhythm, no audible murmurs, rubs or gallops. ABDOMEN:? Soft, non-tender, non-distended, no organomegaly.? Positive bowel sounds. EXTREMITIES:? No clubbing, cyanosis, or edema. NEURO:? Cranial nerves II through XII grossly intact, no focal deficits. PSYCH:? Alert and oriented x 3. SKIN:? No concerning lesions. Objective Labs Result Diagrams: 02/27/22 04:16 02/27/22 12:10 Labs: Laboratory Results - last 24 hr 02/26/22 02/26/22 02/26/22 11:38 11:38 20:20 WBC 6.8 RBC 3.91 L Hgb 12.3 Hct 37.3 MCV 95.3 MCH 31.4 MCHC 33.0 RDW 14.7 Plt Count 167 Neut % (Auto) 78.0 H Lymph % (Auto) 11.5 L [place] % (Auto) 9.7 Eos % (Auto) 0.2 L Baso % (Auto) 0.6 Neut # (Auto) 5300 Lymph # (Auto) 800 L [place] # (Auto) 700 Eos # (Auto) 0 Baso # (Auto) 0 D-Dimer Sodium 130 L 131 L Potassium 2.6 L* D 3.1 L Chloride 80 L 79 L Carbon Dioxide 41 H* 45 H* BUN 31 H 35 H Creatinine 0.87 0.95 Estimated GFR > 60.0 59.4 L BUN/Creatinine Ratio 35.6 H 36.8 H Glucose 132 H 149 H Calcium 7.8 L 7.6 L Magnesium Total Bilirubin 0.4 AST 36 ALT 21 Alkaline Phosphatase 82 NT-Pro-B Natriuret Pep 1870 H Total Protein 6.1 L Albumin 3.4 L Globulin 2.7 Albumin/Globulin Ratio 1.3 02/27/22 02/27/22 02/27/22 04:16 04:16 04:16 WBC 5.5 RBC 4.33 Hgb 13.6 Hct 41.0 MCV 94.7 MCH 31.5 MCHC 33.3 RDW 14.1 Plt Count 131 L Neut % (Auto) 72.1 Lymph % (Auto) 15.8 L [place] % (Auto) 11.0 Eos % (Auto) 0.8 L Baso % (Auto) 0.3 Neut # (Auto) 3900 Lymph # (Auto) 900 L [place] # (Auto) 600 Eos # (Auto) 0 Baso # (Auto) 0 D-Dimer 762 H Sodium 131 L Potassium 2.5 L* Chloride 80 L Carbon Dioxide 44 H* BUN 29 H Creatinine 0.73 Estimated GFR > 60.0 BUN/Creatinine Ratio 39.7 H Glucose 113 H Calcium 8.2 L Magnesium 1.4 L Total Bilirubin 0.5 AST 34 ALT 21 Alkaline Phosphatase 82 NT-Pro-B Natriuret Pep 2840 H Total Protein 6.2 L Albumin 3.4 L Globulin 2.8 Albumin/Globulin Ratio 1.2 [facility] Medical History (Updated 02/26/22 @ 06:17 by Tomer Mattson MD) Anxiety Aortoiliac occlusive disease COPD (chronic obstructive pulmonary disease) Diarrhea History of respiratory failure Hypertension Tobacco abuse Surgical History History of aorto-femoral bypass History of back surgery History of carpal tunnel release History of cataract removal with insertion of prosthetic lens History of colonoscopy History of hysterectomy Family History Brother Cancer Family/Other Cancer Social History marital status: household members: spouse Smoking Status: Current every day smoker alcohol intake: current substance use type: does not use Assessment & Plan Assessment & Plan narrative: 1. Hyperkalemia, likely iatrogenic from potassium supplementation for diarrhea- induced hypokalemia, now labile -Potassium levels: 7.6-->7.4-->6.3-->4.6 (after treatment) -->2.6-->3.1 (after treatment) -->2.5 Plan:? Repleting potassium again and will trend labs.? Magnesium also low this morning, will replete that as well to allow her potassium to normalize. EKG. 2.? Acute hypoxic respiratory failure with respiratory acidosis secondary to COPD, improved Plan: Continue supportive supplemental oxygen.? Treating underlying diseases with usual home medications.? 3. Hypomagnesima, chronic Plan: Please see #1. 4. Electrolyte derangement, hyponatremia, hypochloremia, hypomagnesmia, hyper/hypokalemia Plan: Underlying acute respiratory acidosis is resolving but patient is contstantly acidotic from her severe COPD. In addition, she has chronic diarrhea likely contributing to her potassium and magnesium losses and those are being replaced. Sodium is at baseline. Trending chloride while treating underlying conditions and kidney function returns. 5. Elevated BNP, acute in setting of history of possible alcohol induced cardiomyopathy, congestive heart failure, and atrophic right renal artery and vein -Dr. Mclaughlin, cardiology, consulting in outpatient setting. Plan: ? Level trending up this morning. No signs of fluid overload. Will monitor strict I/Os and get CXR. May need to update echo. Suspect elevated due to? chronic issues. Will continue to trend lab. 6.? History of elevated D-dimer, chronic, at baseline Plan: ? Has had work-up by hematology on 06/21/21.? Workup for PE/DVT negative.? Hematology thought elevation likely multifactorial from COPD, peripheral vascular disease, cardiac disease, smoking, and alcohol use.? 7.? Weakness accompanied by pain, profound and likely secondary to claudication ?plan:? Patient has a long smoking history and is not interested in quitting.? Will treat symptoms with pain control via usual home oxycodone.? PT consult. 8. Chronic pain syndrome Plan: Continue home oxycodone. 9.? Protein calorie malnutrition, chronic, likely secondary to alcohol abuse and lymphocytic colitis Plan: ? Patient is on boost shakes at home.? She has had a workup by GI, they are following her clinically, will continue that in outpatient setting. 10. Elevated alkaline phosphatase, resolved 11.? Tobacco dependence Plan:? Nicoderm 12. Alcohol dependence Plan: CIWA protocol. 13. Hyperlipidemia, chronic Plan: Continue home statin. 14. Depression/ anxiety Plan: Continue home medications. Code: DNR / DNI Diet:? cardiac DVT:? lovenox COVID:? negative Dispo:? Anticipate 1-2 nights.
[2022-02-27] MEDS: dilTIAZem CD 120 MG CAP PO (06:07)
[2022-02-27] MEDS: ALBUTEROL 2.5 MG/3 ML NEB (ADULT) INH ×2 (07:59→20:10)
[2022-02-27] MEDS: DOCUSATE 100 MG CAPSULE PO (07:59)
[2022-02-27] MEDS: VENLAFAXINE ER 75 MG CAP 225 MG PO (07:59)
[2022-02-27] MEDS: cloNIDine 0.1 MG TABLET 0.4 MG PO ×2 (08:00→20:34)
[2022-02-27] MEDS: SODIUM CHLORIDE 0.9% FLUSH 10 ML IV ×2 (08:03→20:35)
[2022-02-27] MEDS: FOLIC ACID 1 MG TABLET PO (08:03)
[2022-02-27] MEDS: ASPIRIN 81 MG CHEW TAB PO (08:03)
[2022-02-27] MEDS: MULTIVITAMIN 1 TABLET 1 TAB PO (08:03)
[2022-02-27] MEDS: THIAMINE 100 MG TABLET PO (08:03)
[2022-02-27 12:36] LABS: BUN Creatinine Ratio 47.9 (6-22); Blood Urea Nitrogen 35 mg/dL (7-17); Calcium 7.8 mg/dL (8.4-10.2); Chloride 79 mmol/L (98-107); Estimated Glomerular Filt Rate > 60.0 mL/min (>60); Glucose 75 mg/dL (80-110); Sodium 129 mmol/L (137-145)
[2022-02-27 12:46] LABS: HEMOLYSIS 63 (0-50); Potassium 3.5 mmol/L (3.4-5.1)
[2022-02-27 12:47] LABS: Carbon Dioxide 42 mmol/L (22-32)
--- NOTE | 2022-02-27 13:20 | PT-IP ANOTE ---
Attempted to see pt at 13:20, pt refused therapy stating she just does not feel up to it. Will check again tomorrow.
--- NOTE | 2022-02-27 15:54 | PC.NURSE ---
Addendum entered by Berny Hallman R.N. 02/27/22 16:57: AUTOMATIC SHIRRING MACHINE OPERATOR reported HTN. Re assessed pt as wel as BP and notified Dr. Ford of HTN, pt denies symptoms. Discussed current PO antihypertensives including dose/time. TORB for labetolol 10 mg IV now x1 dose. Original Note: Pt noted to be OOB without assistance. Pt has been AO x4 and using the call light appropriately to make her needs known. Upon entering room, noted pt to be crouching over trash can. Pt states that she had to urinate urgently and forgot to use call light. Reminded pt that she has a urinary catheter that is draining her urine. She verbalizes understanding. Assisted pt from trash can to BSC. Noted medium, formed BM in trash can. Pt provided her own swati care and was assisted back to bed. Pt is answering orientation questions appropriately at this time but is exhibiting some confusion (mistaking trash can for BSC, stating she needs to urinate instead of have BM). Dr. Ford on rounds at this time. Reported the above as well as assessment findings, O2 needs, lab results, VS, plan of care. Dr. Ford states she would like to see stable electrolytes prior to discharging which may potentially be tomorrow. Dr. Ford also states ok to dc indwelling catheter. Reported pt refused lovenox despite education. Reported unable to update home med rec, pt is unsure of what inhalers she uses and it's not listed in external med hx. Dr. Ford states that she prescribed home doses of inhalers for this hospitalization and that med rec can be updated from current med orders.
[2022-02-27] MEDS: ATORVASTATIN 20 MG TABLET 40 MG PO (17:04)
[2022-02-27] MEDS: LABETALOL 20 MG/4 ML SYRINGE 10 MG IV (17:05)
[2022-02-27] MEDS: QUETIAPINE 25 MG TABLET 75 MG PO (20:32)
[2022-02-27] MEDS: LORazepam 2 MG/ML INJ IV (22:30)
[2022-02-28] VITALS (46 sets, daily range): BP systolic 50–220; BP diastolic 24–110; PULSE 71–110; RESP 11–66; TEMP 36.6–37.5; O2SAT 86–99
[2022-02-28] MEDS: OXYCODONE IR 10 MG TABLET 20 MG PO (04:45)
[2022-02-28 05:20] LABS: Add Manual Diff / Slide Review NO; Basophils Absolute Auto 0 /uL (0-100); Basophils Percent Auto 0.6 % (0-2); Eosinophils Absolute Auto 100 /uL (0-450); Eosinophils Percent Auto 1.5 % (2-4); Hematocrit 39.9 % (36-46); Hemoglobin 13.2 g/dL (12.0-16.0); Lymphocytes Absolute Auto 1200 /uL (1100-4500); Lymphocytes Percent Auto 22.5 % (25-40); Mean Corpuscular HGB Conc 33.1 % (30-36); Mean Corpuscular Hemoglobin 31.6 PG (26-34); Mean Corpuscular Volume 95.5 fL (80-100); Monocytes Absolute Auto 700 /uL (0-900); Monocytes Percent Auto 12.8 % (3-14); Neutrophils Absolute Auto 3300 /uL (1500-7000); Neutrophils Percent Auto 62.6 % (50-75); Platelet Count 136 X10^3/uL (150-400); Red Blood Cell Count 4.18 X10^6/uL (4.0-5.2); Red Cell Distribution Width 14.4 % (11.6-14.8); White Blood Cell Count 5.2 X10^3/uL (4.5-11.0)
[2022-02-28 05:29] LABS: Alanine Aminotransferase 22 IU/L (<35); Albumin 3.4 g/dL (3.5-5.0); Albumin Globulin Ratio 1.2 (1.0-2.8); Alkaline Phosphatase 76 U/L (38-126); Aspartate Aminotransferase 35 IU/L (14-36); BUN Creatinine Ratio 42.7 (6-22); Bilirubin Total 0.4 mg/dL (0.2-1.3); Blood Urea Nitrogen 35 mg/dL (7-17); Calcium 8.2 mg/dL (8.4-10.2); Chloride 81 mmol/L (98-107); Estimated Glomerular Filt Rate > 60.0 mL/min (>60); Globulin 2.9 g/dL (1.7-4.1); Glucose 106 mg/dL (80-110); HEMOLYSIS < 15 (0-50); Magnesium 1.6 mg/dL (1.6-2.3); Potassium 3.1 mmol/L (3.4-5.1); Sodium 133 mmol/L (137-145); Total Protein 6.3 g/dL (6.3-8.2)
[2022-02-28 05:36] LABS: NT-proBNP (BNP-Adult 18+) 3250 pg/mL (<125)
[2022-02-28 06:00] LABS: Carbon Dioxide 45 mmol/L (22-32)
--- NOTE | 2022-02-28 06:43 | PC.NURSE ---
Shift Note-Patient was disoriented and restless at midnight, mild tremors noted, 1mg IV Ativan given for CIWA 8, effective. Oxycodone given for chronic pain per her usual routine. Vandana PINEDA'madelaine, able to get to BSC with 1 person assist, still very weak with shortness of breath and pursed lip breathing, SpO2 >90% on 2L. Serum CO2 45 this am, reported to Dr Ford, no new orders at this time.
[2022-02-28] MEDS: LORazepam 2 MG/ML INJ IV (07:48)
[2022-02-28] MEDS: MULTIVITAMIN 1 TABLET 1 TAB PO (09:01)
[2022-02-28] MEDS: THIAMINE 100 MG TABLET PO (09:01)
[2022-02-28] MEDS: dilTIAZem CD 120 MG CAP PO (09:01)
[2022-02-28] MEDS: FOLIC ACID 1 MG TABLET PO (09:01)
[2022-02-28] MEDS: ASPIRIN 81 MG CHEW TAB PO (09:01)
[2022-02-28] MEDS: DOCUSATE 100 MG CAPSULE PO (09:01)
[2022-02-28] MEDS: MAGNESIUM OXIDE 400 MG TABLET 200 MG PO ×2 (09:01→21:19)
[2022-02-28] MEDS: VENLAFAXINE ER 75 MG CAP 225 MG PO (09:02)
[2022-02-28] MEDS: cloNIDine 0.1 MG TABLET 0.4 MG PO ×2 (09:02→21:18)
[2022-02-28] MEDS: ENOXAPARIN 40 MG/0.4 ML SYRINGE SUBCUT (09:03)
[2022-02-28] MEDS: SODIUM CHLORIDE 0.9% FLUSH 10 ML IV ×2 (09:04→21:19)
--- NOTE | 2022-02-28 09:34 | P.PN_ITS ---
Subjective Subjective Date Patient Seen: 02/28/22 Time Patient Seen: 09:34 Interval history: Patient with difficult night. ANGI scores 14 today. Having difficulty taking her pills. Awake but not discussing much. No pain. No other significant change. Denies chest pain shortness of breath or abdominal pain. Exam Vital Signs (past 8 hours): - 02/28/22 02:00 02/28/22 02:30 02/28/22 03:00 Temperature Pulse Rate 106 H 100 H 101 H Respiratory Rate 32 H 66 H 57 H Blood Pressure Pulse Oximetry 96 99 99 02/28/22 03:23 02/28/22 03:25 02/28/22 03:26 Temperature Pulse Rate 101 H 101 H 101 H Respiratory Rate 59 H 43 H 30 H Blood Pressure 182/85 H 185/105 H 159/108 H Pulse Oximetry 96 95 95 02/28/22 03:30 02/28/22 04:00 02/28/22 04:30 Temperature 98.3 F Pulse Rate 101 H 92 H 99 H Respiratory Rate 19 23 35 H Blood Pressure 159/108 H Pulse Oximetry 94 95 89 L 02/28/22 05:00 02/28/22 05:30 02/28/22 06:00 Temperature Pulse Rate 100 H 93 H 101 H Respiratory Rate 30 H 12 26 H Blood Pressure Pulse Oximetry 94 96 92 02/28/22 06:30 02/28/22 07:00 02/28/22 07:30 Temperature Pulse Rate 109 H 99 H 97 H Respiratory Rate 29 H 35 H 14 Blood Pressure Pulse Oximetry 93 95 96 02/28/22 07:39 02/28/22 07:41 02/28/22 08:00 Temperature Pulse Rate 99 H 101 H 100 H Respiratory Rate 30 H 21 15 Blood Pressure 209/107 H 220/105 H 176/87 H Pulse Oximetry 95 93 94 02/28/22 08:08 02/28/22 09:02 Temperature Pulse Rate 79 107 H Respiratory Rate 19 Blood Pressure 176/87 H 199/88 H Pulse Oximetry 94 Fraction of Inspired Oxygen 40 Oxygen Delivery Method Nasal Cannula Oxygen Flow Rate 2 Narrative Exam Narrative: Sleepy appearing female Cachectic in appearance minimally following directions to take pills in no acute distress. Mucous membranes moist. Neck supple without adenopathy. Lungs with decreased breath sounds no rhonchi or wheeze. Heart is distant. Abdomen is scaphoid and benign. extremities with no edema. Neurologic exam shows no focal defect. Objective Labs Result Diagrams: 02/28/22 04:55 02/28/22 04:55 Labs: Laboratory Results - last 24 hr 02/27/22 02/28/22 02/28/22 12:10 04:55 04:55 WBC 5.2 RBC 4.18 Hgb 13.2 Hct 39.9 MCV 95.5 MCH 31.6 MCHC 33.1 RDW 14.4 Plt Count 136 L Neut % (Auto) 62.6 Lymph % (Auto) 22.5 L [place] % (Auto) 12.8 Eos % (Auto) 1.5 L Baso % (Auto) 0.6 Neut # (Auto) 3300 Lymph # (Auto) 1200 [place] # (Auto) 700 Eos # (Auto) 100 Baso # (Auto) 0 Sodium 129 L 133 L Potassium 3.5 3.1 L Chloride 79 L 81 L Carbon Dioxide 42 H* 45 H* BUN 35 H 35 H Creatinine 0.73 0.82 Estimated GFR > 60.0 > 60.0 BUN/Creatinine Ratio 47.9 H 42.7 H Glucose 75 L 106 Calcium 7.8 L 8.2 L Magnesium 1.6 Total Bilirubin 0.4 AST 35 ALT 22 Alkaline Phosphatase 76 NT-Pro-B Natriuret Pep 3250 H Total Protein 6.3 Albumin 3.4 L Globulin 2.9 Albumin/Globulin Ratio 1.2 [facility] Medical History (Updated 02/26/22 @ 06:17 by Tomer Mattson MD) Anxiety Aortoiliac occlusive disease COPD (chronic obstructive pulmonary disease) Diarrhea History of respiratory failure Hypertension Tobacco abuse Surgical History History of aorto-femoral bypass History of back surgery History of carpal tunnel release History of cataract removal with insertion of prosthetic lens History of colonoscopy History of hysterectomy Family History Brother Cancer Family/Other Cancer Social History marital status: household members: spouse Smoking Status: Current every day smoker alcohol intake: current substance use type: does not use Assessment & Plan Assessment & Plan narrative: Alcohol withdrawal. Main issue at this time. Patient minimally taking p.o. meds. But will try to level response by taking p.o. Librium. Will Hold phenobarbital at this time. but consider if worsening. Will see how things go over the next 12 hours. Will have to watch closely. Acute hypoxic respiratory failure seems to be stable at this time. Secondary to COPD. Does not appear to need further treatment other than her usual. Will continue current treatment. Hypertension. Poorly controlled on current medication not taking p.o. well. Will switch to as needed labetalol every 6 hours as needed and see how she does. Hopefully when she starts taking her medicine better we can adjust p.o. medicines not sure when that will be. Probably in the next 24-48 hours but will have to see how things go. Hypokalemia. K rider today recheck this afternoon in level. May need to continue increasing. Watch to see how things go. decreased magnesium. Better today. Continue p.o. replacement if we can get her to take her medicine. Elevated BNP in the setting of possible alcohol induced cardiomyopathy probably left heart failure. Euvolemic right now. I do not think we need to make any changes will follow. Severe malnutrition. Probably combination of home intake. Probably combination of alcohol abuse and possible colitis. Will continue to follow. Probably is not helping us with our long-term care issues. Controlling increase calories but will be difficult with current alcohol withdrawal. History of diarrhea appears stable at this time. Has been worked up extensively without significant findings. Apparently diagnosed with lymphocytic colitis. No treatment at this time. Will follow. Profound weakness. Combination of COPD, malnutrition, history of claudication. This point I do not think she is rehab a bowl. Wonder about long-term care plans. Will need to see how things go and follow from there. Patient is not interested in quitting smoking will need to follow. Chronic pain. Continue current medicines. Seems to be stable. Not complaining of pain. Nicotine dependence. Continue Nicoderm. Depression. Continue current medicines Hyperkalemia. Not an issue. DVT on Lovenox. Code status DNR DNI Disposition. Apparently patient wants to go home. Question is really long-term care. And goals. Unable to answer that question. Almost appears to be hospice candidate but will need to discuss with primary medical instrument technician. Plan was her to go home but at this time with hypertension unclear alcohol withdrawal and not taking feels will do not see that happening for the next few days. Would be surprised if she is not still here Friday. What to see how things go. Discuss ed with social service. May need to consider extended care. Unable to ask and discussed with patient at this time. Will continue to follow. 40 minute spent with patient with social Service with nursing dictating an orders Time Spent With Patient Critical Care time: I spent a total of [] minutes of critical care time on this patient's care today; this time is exclusive of procedural time.
--- NOTE | 2022-02-28 10:18 | PT-IP ANOTE ---
Attempted to see pt at 10:18, pt refused therapy today due to weakness and fatigue.
[2022-02-28] MEDS: POTASSIUM CHLORIDE IN WATER 10 MEQ/100 ML PIGGYBACK 100 MEQ IV ×4 (10:49→13:09)
[2022-02-28] MEDS: LABETALOL 20 MG/4 ML SYRINGE 10 MG IV ×2 (10:51→17:50)
--- NOTE | 2022-02-28 14:21 | PT-IP ANOTE ---
Attempted to see pt at 14:21, pt had just been moved to room 218 and her spouse is here. Pt refused therapy again this PM, spouse confirms she does not feel up to it today. Will check back tomorrow.
[2022-02-28] MEDS: ALBUTEROL 2.5 MG/3 ML NEB (ADULT) INH ×2 (14:22→17:09)
--- NOTE | 2022-02-28 14:22 | PC.NURSE ---
Day shift note Pt disoriented and restless at shift change, moderate tremors noted, c/o headache, anxious, nausea, CIWA of 14 medicated with 2mg ativan. Repeat CIWA of 12, no medication given due to pt lethargy. Dr Fraser at bedside, new orders for librium and labetol prn. Pt being moved to room 218, report given to [place] ROBERTS. No further pt contact at this time,
[2022-02-28] MEDS: chlordiazePOXIDE 10 MG CAPSULE PO (14:25)
--- NOTE | 2022-02-28 15:34 | DIET.PN1 ---
Dietary Progress Note Assessment: 61 y/o F c PMH COPD, electrolyte imbalances d/t chronic diarrhea from lymphocytic colitis admitted secondary to hyperkalemia. No RD consult but seeing Teeno d/t low BMI screen. Very low BMI of 13.4. NFPE: muscle and fat loss evident in severe depressed temples and orbital areas, protruding clavicle, boxed shoulders, and depressed interosseous muscle. (Osorio) provided much assessment information. States she has only been eating one meal per day x 50-100% + he describes what seems like 2 x 500ml white wine daily. Was drinking boost each day, but she stopped about 2-3 weeks ago. On CIWA protocol. He reports her UBW as 125-130# and states the wt loss started about 1-2 years ago after COPD diagnosis. EMR wt hx: 02/26/22: 35.38kg 06/21/21 40kg (-4.62kg or 11.6%) Reported UBW of 125# would indicate a -21.4kg or 38% loss over 1-2 years. Ht: 162.56 cm Wt: 35.38 kg BMI: 13.4 Last BM: 02/27/22 (02/27/22 15:45) MNA: 7 Justin Score: 17 Diet: 02/25/22 Breakfast Heart Healthy Diet Diet Modifications: Sodium Level: 2 gm Sodium Nutrition Percent Meal Consumed 25% 02/28/22 07:00 Percent Meal Consumed 25% 02/27/22 18:56 Percent Meal Consumed 50% 02/27/22 13:30 Percent Meal Consumed 75% 02/27/22 08:54 Labs: RBC 4.18 X10^6/uL (4.0-5.2) 02/28/22 04:55 Hgb 13.2 g/dL (12.0-16.0) 02/28/22 04:55 Hct 39.9 % (36-46) 02/28/22 04:55 Creatinine 0.82 mg/dL (0.52-1.04) 02/28/22 04:55 Lactate 1.5 mmol/L (0.7-2.1) 02/25/22 18:00 NT-Pro-B Natriuret Pep 3250 pg/mL (<125) H 02/28/22 04:55 Nutrition Diagnosis: Severe chronic protein calorie malnutrition r/t ETOH abuse, increased kcal needs with COPD and inadequate PO aeb BMI <16, severe muscle and fat loss, reported chronic low PO, and current ETOH withdrawl. Interventions: 1. High kcal ONS TID 2. will start a kcal count to determine if she is meeting nutrition needs-- currently not appropriate for education If she is unable to meet needs via PO, other nutrition interventions may be beneficial. EER: 4027-2091 kcals (per low BMI, 35-40kcal/kg) ; 70g PRO (per malnutrition 2g/kg PRO) Monitoring/Evaluations: ONS tolerance, PO, wt, labs, kcal count. Electronically Signed by: Ruth Rubalcava 02/28/22 15:34 Clinical Dietitian [address] [address]
--- NOTE | 2022-02-28 16:16 | CM.DPC ---
DCP Cont: Dr. Agosto came by the care management office and indicated, patient is not doing well, she most likely is in alcohol withdrawals. This was not mentioned upon initial assessment. She is on CIWA, at 8, and is currently on Librium. He mentioned, she could use jail rehab. Let him know that patient has already declined, per DC Planning notes. At this point, is is uncertain if she will need further rehab regarding her intoxication, and may need to have conversation with patient/spouse. Patient has also refused home health according to notes. At this time, she is not able to be interviewed, due to her instability of withdrawals. Will attempt to revisit tomorrow for any needs, P: DCP to continue to follow. P.T. has already indicated home with support, she has spouse at home, but now, she is medically unstable. Confirmed with UR, she is inpatient status. Amee Newell, RN/Golf Course Architect
[2022-02-28 16:43] LABS: BUN Creatinine Ratio 42.1 (6-22); Blood Urea Nitrogen 32 mg/dL (7-17); Calcium 8.1 mg/dL (8.4-10.2); Chloride 81 mmol/L (98-107); Estimated Glomerular Filt Rate > 60.0 mL/min (>60); Glucose 111 mg/dL (80-110); HEMOLYSIS < 15 (0-50); Potassium 3.8 mmol/L (3.4-5.1); Sodium 132 mmol/L (137-145)
[2022-02-28 16:53] LABS: Carbon Dioxide 47 mmol/L (22-32)
[2022-02-28 17:50] LABS: pH ABG 7.31 (7.35-7.45)
[2022-02-28 17:51] LABS: HCO3 ABG 54 mmol/L (22-26); PO2 ABG 61 mmHg (80-100); TCO2 ABG > 50 mmol/L (21-31)
[2022-02-28 17:52] LABS: Fractionated Inspired Oxygen 32; Oxygen Saturation ABG 85 % (95-100)
--- NOTE | 2022-02-28 18:04 | PM.PN.1 ---
Subjective Subjective Date Patient Seen: 02/28/22 Time Patient Seen: 18:04 Interval history: Called to see patient for mental status changes. Has had a difficult day. Has been waxing and waning throughout the day. Along with her blood pressure. She is not complaining of any pain. Exam Vital Signs (past 8 hours): - 02/28/22 10:06 02/28/22 10:08 02/28/22 10:30 Temperature Pulse Rate 100 H 100 H 94 H Respiratory Rate 22 22 14 Blood Pressure 50/24 L 183/89 H Pulse Oximetry 96 95 99 02/28/22 10:51 02/28/22 11:00 02/28/22 11:01 Temperature Pulse Rate 88 71 71 Respiratory Rate 13 11 L Blood Pressure 183/89 H 69/49 L Pulse Oximetry 98 98 02/28/22 11:04 02/28/22 11:16 02/28/22 11:21 Temperature Pulse Rate 72 74 80 Respiratory Rate 19 25 H 20 Blood Pressure 72/51 L 88/54 L 139/97 H Pulse Oximetry 97 99 95 02/28/22 11:30 02/28/22 12:00 02/28/22 16:34 Temperature 98.0 F 99.5 F Pulse Rate 82 81 89 Respiratory Rate 34 H 20 12 Blood Pressure 139/97 H 179/94 H Pulse Oximetry 99 93 92 02/28/22 17:50 Temperature Pulse Rate 89 Respiratory Rate Blood Pressure 189/110 H Pulse Oximetry Fraction of Inspired Oxygen 40 Oxygen Delivery Method Nasal Cannula Oxygen Flow Rate 3 Narrative Exam Narrative: Much more alert cachectic frail-appearing female in no acute respiratory distress. Lungs show decreased breath sounds throughout with occasional rhonchi. Objective Labs Result Diagrams: 02/28/22 04:55 02/28/22 16:00 Labs: Laboratory Results - last 24 hr 02/28/22 02/28/22 02/28/22 04:55 04:55 16:00 WBC 5.2 RBC 4.18 Hgb 13.2 Hct 39.9 MCV 95.5 MCH 31.6 MCHC 33.1 RDW 14.4 Plt Count 136 L Neut % (Auto) 62.6 Lymph % (Auto) 22.5 L [place] % (Auto) 12.8 Eos % (Auto) 1.5 L Baso % (Auto) 0.6 Neut # (Auto) 3300 Lymph # (Auto) 1200 [place] # (Auto) 700 Eos # (Auto) 100 Baso # (Auto) 0 ABG pH ABG pCO2 ABG pO2 ABG HCO3 ABG Total CO2 ABG O2 Saturation ABG Base Excess FiO2 Sodium 133 L 132 L Potassium 3.1 L 3.8 Chloride 81 L 81 L Carbon Dioxide 45 H* 47 H* BUN 35 H 32 H Creatinine 0.82 0.76 Estimated GFR > 60.0 > 60.0 BUN/Creatinine Ratio 42.7 H 42.1 H Glucose 106 111 H Calcium 8.2 L 8.1 L Magnesium 1.6 Total Bilirubin 0.4 AST 35 ALT 22 Alkaline Phosphatase 76 NT-Pro-B Natriuret Pep 3250 H Total Protein 6.3 Albumin 3.4 L Globulin 2.9 Albumin/Globulin Ratio 1.2 02/28/22 17:26 WBC RBC Hgb Hct MCV MCH MCHC RDW Plt Count Neut % (Auto) Lymph % (Auto) [place] % (Auto) Eos % (Auto) Baso % (Auto) Neut # (Auto) Lymph # (Auto) [place] # (Auto) Eos # (Auto) Baso # (Auto) ABG pH 7.31 L ABG pCO2 107.0 H* ABG pO2 61 L ABG HCO3 54 H ABG Total CO2 > 50 H ABG O2 Saturation 85 L* ABG Base Excess 28.0 H FiO2 32 Sodium Potassium Chloride Carbon Dioxide BUN Creatinine Estimated GFR BUN/Creatinine Ratio Glucose Calcium Magnesium Total Bilirubin AST ALT Alkaline Phosphatase NT-Pro-B Natriuret Pep Total Protein Albumin Globulin Albumin/Globulin Ratio [facility] Medical History (Updated 02/26/22 @ 06:17 by Tomer Mattson MD) Anxiety Aortoiliac occlusive disease COPD (chronic obstructive pulmonary disease) Diarrhea History of respiratory failure Hypertension Tobacco abuse Surgical History History of aorto-femoral bypass History of back surgery History of carpal tunnel release History of cataract removal with insertion of prosthetic lens History of colonoscopy History of hysterectomy Family History Brother Cancer Family/Other Cancer Social History marital status: household members: spouse Smoking Status: Current every day smoker alcohol intake: current substance use type: does not use Assessment & Plan Assessment & Plan narrative: Mental status changes. Difficult to know. She has been getting benzodiazepines for her alcohol withdrawal and probably not clearing completely. She looks much better today than she did this morning. I think at this point will hopefully start to use less of her benzodiazepines and will follow closely. Not helping her CO2 is increasing. Respiratory failure. Patient overall satting okay. She has slight increase in her CO2 retention. Difficult because if we increase her O2 status we may be pushing her to breathe did decreased amounts. Some of this is secondary to her need for benzodiazepines for alcohol withdrawal. Difficult situation. Patient has had some increase in her BNP and at this point I am going to give her Lasix tonight and see if that makes a difference. I am reluctant to put her on any different treatment. Were going to watch closely and see how she does. She is not want intubation and has not wanted aggressive pulmonary care. Will see how things go. Discussed this extensively with . Hypertension. Poorly controlled. Will continue labetalol. Has not been given. Patient has been somewhat labile with her blood pressure and hopefully this will work. Will have to work towards an oral medication. Disposition. Given this patient is basically drinking her nutrition and still smoking I do not personally think that this is a fixable situation. I think her body is beginning to wear down I think this is going to be a progressive worsening of condition. I had discussed with that I do not think there is any definitive fix for any of the issues that were dealing with we may be O2 improved slightly but I doubt were going to be able to really change her quality of life. He has concerns and really just wants her to come home. Given the fact that she has wheelchair-bound and she is not moving and she is still drinking and smoking makes route recovery much more difficult. He does not think that is going to change. We began discussing hospice and he will think about it. He is having trouble discussing with her because she is not alert enough to have those discussions. He may need to make these discussions. And decisions on his own. He will think about it tonight. We will see in a.m.. I believe she is in a very serious place and may not leave the hospital I will see how things go. Time Spent With Patient Critical Care time: I spent a total of [] minutes of critical care time on this patient's care today; this time is exclusive of procedural time.
[2022-02-28] MEDS: FUROSEMIDE 20 MG/2 ML VIAL IV (18:28)
[2022-02-28] MEDS: QUETIAPINE 25 MG TABLET 75 MG PO (21:18)
[2022-03-01] VITALS (11 sets, daily range): BP systolic 111–168; BP diastolic 66–95; PULSE 77–107; RESP 16–22; TEMP 36.3–37.6; O2SAT 88–96
[2022-03-01 06:05] LABS: Add Manual Diff / Slide Review NO; Basophils Absolute Auto 0 /uL (0-100); Basophils Percent Auto 0.6 % (0-2); Eosinophils Absolute Auto 100 /uL (0-450); Hematocrit 40.5 % (36-46); Lymphocytes Absolute Auto 1200 /uL (1100-4500); Lymphocytes Percent Auto 23.4 % (25-40); Mean Corpuscular HGB Conc 32.1 % (30-36); Mean Corpuscular Hemoglobin 31.1 PG (26-34); Mean Corpuscular Volume 96.9 fL (80-100); Monocytes Absolute Auto 800 /uL (0-900); Monocytes Percent Auto 14.9 % (3-14); Neutrophils Absolute Auto 3100 /uL (1500-7000); Neutrophils Percent Auto 59.1 % (50-75); Platelet Count 138 X10^3/uL (150-400); Red Blood Cell Count 4.18 X10^6/uL (4.0-5.2); Red Cell Distribution Width 14.6 % (11.6-14.8); White Blood Cell Count 5.3 X10^3/uL (4.5-11.0)
[2022-03-01 06:30] LABS: Alanine Aminotransferase 20 IU/L (<35); Albumin Globulin Ratio 1.1 (1.0-2.8); Alkaline Phosphatase 66 U/L (38-126); Aspartate Aminotransferase 31 IU/L (14-36); BUN Creatinine Ratio 49.3 (6-22); Bilirubin Total 0.5 mg/dL (0.2-1.3); Blood Urea Nitrogen 35 mg/dL (7-17); Chloride 78 mmol/L (98-107); Estimated Glomerular Filt Rate > 60.0 mL/min (>60); Globulin 2.8 g/dL (1.7-4.1); Glucose 84 mg/dL (80-110); HEMOLYSIS < 15 (0-50); Magnesium 1.5 mg/dL (1.6-2.3); Sodium 131 mmol/L (137-145); Total Protein 5.8 g/dL (6.3-8.2)
[2022-03-01 07:12] LABS: Potassium 2.7 mmol/L (3.4-5.1)
[2022-03-01 07:13] LABS: Carbon Dioxide 49 mmol/L (22-32)
[2022-03-01] MEDS: OXYCODONE IR 10 MG TABLET 20 MG PO ×3 (08:39→20:12)
[2022-03-01] MEDS: cloNIDine 0.1 MG TABLET 0.4 MG PO ×2 (08:40→20:10)
[2022-03-01] MEDS: ASPIRIN 81 MG CHEW TAB PO (08:40)
[2022-03-01] MEDS: chlordiazePOXIDE 10 MG CAPSULE PO ×3 (08:40→20:12)
[2022-03-01] MEDS: FOLIC ACID 1 MG TABLET PO (08:41)
[2022-03-01] MEDS: MAGNESIUM OXIDE 400 MG TABLET 200 MG PO ×2 (08:41→20:09)
[2022-03-01] MEDS: DOCUSATE 100 MG CAPSULE PO (08:41)
[2022-03-01] MEDS: dilTIAZem CD 120 MG CAP PO (08:41)
[2022-03-01] MEDS: THIAMINE 100 MG TABLET PO (08:42)
[2022-03-01] MEDS: SODIUM CHLORIDE 0.9% FLUSH 10 ML IV ×2 (08:42→20:13)
[2022-03-01] MEDS: MULTIVITAMIN 1 TABLET 1 TAB PO (08:42)
[2022-03-01] MEDS: VENLAFAXINE ER 75 MG CAP 225 MG PO (08:42)
--- NOTE | 2022-03-01 10:07 | P.PN_ITS ---
Subjective Subjective Date Patient Seen: 03/01/22 Time Patient Seen: 08:50 Interval history: CC: trouble breathing Rough night but looking better this morning. She ate her entire breakfast and an Ensure she is on 2L and feels like her strength is coming back. Osorio at bedside they are interested to discuss hospice options. Goal of going home still clearly stated. She was previously ambulatory. Exam Vital Signs (past 8 hours): - 03/01/22 06:06 03/01/22 07:00 03/01/22 08:40 Temperature 97.6 F 98.6 F Pulse Rate 85 89 93 H Respiratory Rate 18 22 Blood Pressure 147/88 H 160/89 H 160/89 H Pulse Oximetry 88 L 92 03/01/22 09:25 Temperature Pulse Rate Respiratory Rate Blood Pressure Pulse Oximetry 96 Fraction of Inspired Oxygen 40 Oxygen Delivery Method Nasal Cannula Oxygen Flow Rate 2 Narrative Exam Narrative: cachectic female sitting in chair Const Nutritional Appearance: cachectic Eyes General: appearance normal, both eyes and all related structures Resp Auscultation: clear to auscultation bilaterally Cardio Other: elevated rate regular rhythm prominent s1/s2 GI Palpation: soft Auscultation: normal bowel sounds Neuro Other: oriented to person city president and situation. not oriented to year or day of week. Psych Mental Status: mental status grossly normal Speech and Movement: speech and movement normal and speech clear Objective Labs Result Diagrams: 03/01/22 05:20 03/01/22 05:20 Labs: Laboratory Results - last 24 hr 02/28/22 02/28/22 03/01/22 16:00 17:26 05:20 WBC 5.3 RBC 4.18 Hgb 13.0 Hct 40.5 MCV 96.9 MCH 31.1 MCHC 32.1 RDW 14.6 Plt Count 138 L Neut % (Auto) 59.1 Lymph % (Auto) 23.4 L [place] % (Auto) 14.9 H Eos % (Auto) 2.0 Baso % (Auto) 0.6 Neut # (Auto) 3100 Lymph # (Auto) 1200 [place] # (Auto) 800 Eos # (Auto) 100 Baso # (Auto) 0 ABG pH 7.31 L ABG pCO2 107.0 H* ABG pO2 61 L ABG HCO3 54 H ABG Total CO2 > 50 H ABG O2 Saturation 85 L* ABG Base Excess 28.0 H FiO2 32 Sodium 132 L Potassium 3.8 Chloride 81 L Carbon Dioxide 47 H* BUN 32 H Creatinine 0.76 Estimated GFR > 60.0 BUN/Creatinine Ratio 42.1 H Glucose 111 H Calcium 8.1 L Magnesium Total Bilirubin AST ALT Alkaline Phosphatase Total Protein Albumin Globulin Albumin/Globulin Ratio 03/01/22 05:20 WBC RBC Hgb Hct MCV MCH MCHC RDW Plt Count Neut % (Auto) Lymph % (Auto) [place] % (Auto) Eos % (Auto) Baso % (Auto) Neut # (Auto) Lymph # (Auto) [place] # (Auto) Eos # (Auto) Baso # (Auto) ABG pH ABG pCO2 ABG pO2 ABG HCO3 ABG Total CO2 ABG O2 Saturation ABG Base Excess FiO2 Sodium 131 L Potassium 2.7 L* Chloride 78 L Carbon Dioxide 49 H* BUN 35 H Creatinine 0.71 Estimated GFR > 60.0 BUN/Creatinine Ratio 49.3 H Glucose 84 Calcium 8.0 L Magnesium 1.5 L Total Bilirubin 0.5 AST 31 ALT 20 Alkaline Phosphatase 66 Total Protein 5.8 L Albumin 3.0 L Globulin 2.8 Albumin/Globulin Ratio 1.1 [facility] Medical History (Updated 02/26/22 @ 06:17 by Tomer Mattson MD) Anxiety Aortoiliac occlusive disease COPD (chronic obstructive pulmonary disease) Diarrhea History of respiratory failure Hypertension Tobacco abuse Surgical History History of aorto-femoral bypass History of back surgery History of carpal tunnel release History of cataract removal with insertion of prosthetic lens History of colonoscopy History of hysterectomy Family History Brother Cancer Family/Other Cancer Social History marital status: household members: spouse Smoking Status: Current every day smoker alcohol intake: current substance use type: does not use Assessment & Plan Assessment & Plan narrative: #encephalopathy likely respiratory with some withdrawal. Continue librium while inpatient. Improving seems like. #Respiratory failure.? back on home previous 2L via [place]. On benzodiazepines for alcohol withdrawal.? Patient has had some increase in her BNP did get some light diuresis with lasix yesterday, K low this morning.? She does not want intubation and has not wanted aggressive pulmonary care.? Will see how things go.? Discussed this extensively with .? #Hypertension.? Poorly controlled.? Will continue labetalol prn.? Has not been given.? Patient has been somewhat labile with her blood pressure and hopefully this will work.? Will have to consider an oral medication.? #hyper and hypo-kalemia Admit K was over 7, now it has been running a bit low in the 2s. continue supplementation and trend with supplementation. Disposition.? Extensive conversation with pt and family Osorio.? Given the fact that she has wheelchair-bound and she is not moving and she is still drinking and smoking makes route recovery much more difficult.? He does not think that is going to change.? They are strongly considering hospice assistance at home which I am advising as well. Likely home tomorrow if stable. Time Spent With Patient Critical Care time: I spent a total of [] minutes of critical care time on this patient's care today; this time is exclusive of procedural time.
--- NOTE | 2022-03-01 10:20 | PC.NURSE ---
Day shift note: [address] Calderon regarding critical K 2.7. 0845 Dr. Calderon at bedside. Patient remain on O2 at 2L via [place], sats 90-92%. Patient breathing effort improved from previous day. Purse lip breathing noted, suprasternal and tracheal retractions noted, RR 14. Speaking in short sentences. CIWA 0. C/O lower back pain, states is chronic, medicated as ordered. Encouraging supplemental drink with meals. Seizure precautions in place. Spouse at bedside providing supportive care.
--- NOTE | 2022-03-01 10:41 | CM.DPC ---
Addendum entered by Amee Newell R.N. 03/01/22 15:58: [facility] , and found out that Yudy has the case. She was unable to do informational visit today. She indicated that they may be able to get nursing out next week, possibly Friday. Let her know that patient does have oxygen at home, but will benefit with a hospital bed. Most likely, equipment will not be delivered until next week. Addendum entered by Amee Newell R.N. 03/01/22 13:25: Called [facility] to follow up with referral. Spoke to Shante, and gave her additional information such as weight, social security information, and patient's spouse name and cell number for contact. Dr. Calderon came by the care management office and updated him that this DC urban planner had discussed hospice and patient and spouse are on board. Let him know that she can be discharged before hospice is on board, since she has home oxygen in place already, he is aware. Original Note: DCP Cont: Met with patient and spouse, Osorio. Introduced self and role. Had spoken to Dr. Calderon earlier this morning and he mentioned, their interest in hospice. Patient was sitting up in chair, weak, on her oxygen. She was awake, flat effect, would answer and nod appropriately. Asked patient and spouse if they were interested in pursuing hospice, and if they would like an informational visit set up. Patient and spouse stated, they would like to go ahead with hospice. Osorio stated that their niece is a hospice nurse as well. Explained what hospice does, and that it is covered by Medicare. Explained services, such as equipment like hospital bed, their own oxygen supply, and medication. Also, explained the hospice team, including nurse, spiritual counselors, EDUCATION DIAGNOSTICIAN, and bath aide. Let patient and spouse know that once she goes on hospice, she would not come back to the hospital for treatments, which patient and spouse understand. Gave [facility] brochure to spouse and patient. Faxed [facility] over her face sheet, mentioning that spouse, Osorio, is contact lens lathe operator. Included H&P, notes showing patient refusing P.T, dietary notes, labs, and medication information. Included POLST which shows that patient is on comfort measures. Patient and goals are for her to go home. P: DCP to continue to follow, and will follow up with [facility] later today. Amee Newell RN/Needle Leader
--- NOTE | 2022-03-01 11:15 | PT-IP ANOTE ---
Attempted to see pt at 11:15, pt refused PT and states she would like to discontinue therapy services at this time. Offers that she just wants to return home w/ her spouse who has been assisting her w/ transfers and plans to go home w/ hospice. Discussed pt wishes to be d/c from therapy w/ PT, RN, and NETBACKUP ENGINEER.
[2022-03-01] MEDS: POTASSIUM CHLORIDE 20 MEQ/15 ML UDC 40 MEQ PO ×2 (11:38→16:49)
[2022-03-01] MEDS: MAGNESIUM CHLORIDE 64 MG TABLET 128 MG PO (12:24)
[2022-03-01] MEDS: ALBUTEROL 2.5 MG/3 ML NEB (ADULT) INH (13:04)
--- NOTE | 2022-03-01 14:54 | DIET.PN1 ---
Dietary Progress Note Assessment: 61 y/o F c PMH COPD, electrolyte imbalances d/t chronic diarrhea from lymphocytic colitis admitted secondary to hyperkalemia. Plan of care is hospice. Will d/c kcal count. Monitoring/Evaluations: Consult prn Electronically Signed by: Ruth Rubalcava 03/01/22 14:54 Clinical Dietitian [address] [address]
--- NOTE | 2022-03-01 16:33 | PT.IPTN ---
Current Diagnoses Hyperkalemia (02/25/22) Physical Therapy Treatment Note M2 PT-IP Current Condition Start: 02/26/22 12:50 Freq: NEEDED Status: Active Protocol: Document 02/26/22 11:25 AB (Rec: 02/26/22 13:07 AB [email or web address]) Physical Therapy Current Condition Current Condition Evaluation Date 02/26/22 Treatment Diagnosis COPD exacerbation; generalized weakness Onset Date 02/25/22 M3 PT-IP Subjective Start: 02/26/22 12:50 Freq: NEEDED Status: Active Protocol: Document 03/01/22 16:31 AB (Rec: 03/01/22 16:33 AB [email or web address]) Subjective Physical Therapy Visit Type Type Administrative Note Notes pt has been refusing PT services for 3 days. LONGWALL HEADGATE OPERATOR talked to pt and pt requested to be discharged from PT. stated that she plans to go home on hospice care. LONGWALL HEADGATE OPERATOR talked with nurse and correctional case manager. will d/c PT M7 PT-IP Assessment and Plan Start: 02/26/22 12:50 Freq: NEEDED Status: Active Protocol: Document 03/01/22 16:31 AB (Rec: 03/01/22 16:33 AB [email or web address]) PT Summary Assessment and Plan Frequency of Treatment Frequency Of Treatment Discharge
[2022-03-01] MEDS: ATORVASTATIN 20 MG TABLET 40 MG PO (16:49)
[2022-03-01] MEDS: QUETIAPINE 25 MG TABLET 75 MG PO (20:12)
[2022-03-02 04:20] VITALS: BP 139/75; PULSE 83; RESP 16; TEMP 36.4; O2SAT 96
[2022-03-02 06:01] VITALS: PULSE 83; RESP 16; O2SAT 96
[2022-03-02 07:00] VITALS: BP 141/82; PULSE 88; RESP 19; TEMP 36.6; O2SAT 94
[2022-03-02 08:57] VITALS: PULSE 98; RESP 14; O2SAT 92
[2022-03-02] MEDS: cloNIDine 0.1 MG TABLET 0.4 MG PO (09:20)
[2022-03-02] MEDS: dilTIAZem CD 120 MG CAP PO (09:20)
[2022-03-02] MEDS: VENLAFAXINE ER 75 MG CAP 225 MG PO (09:20)
[2022-03-02] MEDS: chlordiazePOXIDE 10 MG CAPSULE PO (09:20)
[2022-03-02] MEDS: DOCUSATE 100 MG CAPSULE PO (09:20)
[2022-03-02] MEDS: ASPIRIN 81 MG CHEW TAB PO (09:20)
[2022-03-02] MEDS: MAGNESIUM OXIDE 400 MG TABLET 200 MG PO (09:20)
[2022-03-02] MEDS: SODIUM CHLORIDE 0.9% FLUSH 10 ML IV (09:22)
[2022-03-02] MEDS: MULTIVITAMIN 1 TABLET 1 TAB PO (09:22)
[2022-03-02] MEDS: THIAMINE 100 MG TABLET PO (09:22)
[2022-03-02] MEDS: FOLIC ACID 1 MG TABLET PO (09:32)
[2022-03-02] MEDS: OXYCODONE IR 10 MG TABLET 20 MG PO (09:32)
--- NOTE | 2022-03-02 10:00 | PM.DS.1 ---
History of Present Illness History of Present Illness Date Patient Seen: 03/02/22 Time Patient Seen: 09:00 Chief complaint: SOB/ h/o COPD Narrative: Feeling better this morning eating breakfast well. Discussed discharge plan with pt and , hospice will be out to see them on Friday and they are cautiously interested in signing up. She is satting ok on her home 2L. Discharge Providers Provider Date of admission: 02/25/22 22:01 Discharge Date: 03/02/22 Primary care physician: Indy Ford MD Consults: 02/26/22 09:21 Consult to Physical Therapy Evaluate & Treat Comment: Physician Instructions: Evaluate and Treat 02/28/22 16:23 Consult to Dietitian, Adult Routine Comment: Reason For Exam: BMI 13.4 03/01/22 09:23 Consult to Physical Therapy Evaluate & Treat Comment: Physician Instructions: Evaluate and Treat Discharge provider: Ej Calderon MD Summary Hospital Course Discharge Diagnosis: respiratory failure acute on chronic hyperkalemia encephalopathy severe protein calorie malnutrition hypertension pressure ulcer Hospital Course: Ms. Monroe's respiratory status fluctuated but generally ended up back at her baseline on 2L. Her hyperkalemia was a bit overcorrected but looking closer to normal by DoD she will continue to supplement and f/u with her PCP. Lots of conversation with patient and family they are interested in hospice I think that is a good fit for her I do not anticipate imminent mortality but within 6 months is a very reasonable projection given her condition. Status at Discharge Overall status at discharge: patient is progressing back to baseline Exam Vital Signs (past 8 hours): - 03/02/22 04:20 03/02/22 06:01 03/02/22 07:00 Temperature 97.6 F 97.9 F Pulse Rate 83 83 88 Respiratory Rate 16 16 19 Blood Pressure 139/75 141/82 H Pulse Oximetry 96 96 94 03/02/22 08:57 Temperature Pulse Rate 98 H Respiratory Rate 14 Blood Pressure Pulse Oximetry 92 Fraction of Inspired Oxygen 40 Oxygen Delivery Method Nasal Cannula Oxygen Flow Rate 2 Narrative Exam Narrative: sitting up in bed eating breakfast with gusto Const Nutritional Appearance: cachectic Neck Neck: normal visual inspection, full ROM, trachea midline and supple Resp Other: on 2L via [place] she is moving air well bilaterally able to speak in full sentences Cardio Other: fast prominent regular rhythm S1/S2 GI Other: active bowel sounds nontender Skin Other: approx 2cm stage 2 pressure ulcer on upper midthoracic back. Per it has been there for a while he is concerned about how to treat it at home. Neuro General: patient alert, patient awake, moves all extremities and CN's II-XI intact bilaterally Extrem General: full ROM and no pedal edema Psych Appearance: grossly normal Objective Labs Result Diagrams: 03/01/22 05:20 03/01/22 05:20 [facility] Medical History (Updated 02/26/22 @ 06:17 by Tomer Mattson MD) Anxiety Aortoiliac occlusive disease COPD (chronic obstructive pulmonary disease) Diarrhea History of respiratory failure Hypertension Tobacco abuse Surgical History History of aorto-femoral bypass History of back surgery History of carpal tunnel release History of cataract removal with insertion of prosthetic lens History of colonoscopy History of hysterectomy Family History Brother Cancer Family/Other Cancer Social History marital status: household members: spouse Smoking Status: Current every day smoker alcohol intake: current substance use type: does not use Discharge Assessment & Plan Assessment and Plan Plan of Treatment: #encephalopathy likely respiratory with some withdrawal. Improved with librium po pt is at usual level of alertness now. #severe protein calorie malnutrition she has been eating well here inpatient but reportedly her wine intake is high at home. counseled to continue high calorie feeds with ensure supplementation. #Respiratory failure.? back on home previous 2L via [place]. On benzodiazepines for alcohol withdrawal.? Patient has had some increase in her BNP did get some light diuresis with lasix yesterday, K then running lowg.? She does not want intubation and has not wanted aggressive pulmonary care.? Will see how things go.? Discussed this extensively with .? #Hypertension.? Poorly controlled.? Will continue labetalol prn.? Has not been given.? Patient has been somewhat labile with her blood pressure and hopefully this will work.? Will have to consider an oral medication.? #hyper and hypo-kalemia Admit K was over 7, now it has been running a bit low in the 2s. continue supplementation and trend on f/u. Pt will need recheck and dose adjustment at TCM visit. #Back pressure ulcer on midthoracic back small stage 2 ulcer. She is extremely cachectic and with nursing we discussed regular movement [id number] and not directly loading pressure over that ulcer or her ribs. Will provide family with pressure dressings. Her nutrition has not been great at home we discussed increasing that. Disposition: home today. ? Extensive conversation with pt and family she is more or less getting back to her usual baseline which is not great. they are interested in home hospice options they will be coming out to see them on Friday. Discharge Plan Discharge Plan Patient Disposition: Hospice - Home Discharge orders & Medications Prescriptions: Continued cyclobenzaprine 10 MG tablet 10 mg PO HSP Qty: 0 0RF potassium chloride [Klor-Con M10] 10 MEQ tablet,ER particles/crystals 60 meq PO QDAY Qty: 0 0RF Label Comments: pt is unsure of dosing, updated from external medication hx oxycodone 5 mg Capsule 20 mg PO 5XD 0RF atorvastatin 40 mg tablet 40 mg PO QPM 0RF venlafaxine 75 mg capsule,extended release 24hr 75 mg PO DAILY 0RF albuterol sulfate 2.5 mg /3 mL (0.083 %) solution for nebulization 2.5 mg inhalation Q4H PRN (Reason: Wheezing) 0RF venlafaxine 150 mg capsule,extended release 24hr 150 mg PO DAILY 0RF diltiazem HCl 120 mg capsule,extended release 24hr 120 mg PO DAILY 0RF Adult Low Dose Aspirin 81 mg PO DAILY 0RF clonidine HCl 0.1 mg Tablet 0.4 mg PO BID Qty: 60 2RF quetiapine 25 mg Tablet 75 mg PO BEDTIME 0RF gabapentin 100 mg Capsule 100 mg PO DAILY 0RF magnesium oxide 200 mg magnesium Tablet 200 mg PO BID 0RF Follow up/Referrals: Indy Ford MD [Primary Care Provider] - Visit Report/Discharge Packet Instructions: DI for Chronic Obstructive Pulmonary Disease, DI for Prescription Opioid Use, DI for Respiratory Failure Discharge Data Primary Care Provider: Indy Ford
--- NOTE | 2022-03-02 10:35 | CM.DPC ---
DCP Cont: Patient is discharging home today. Updated Dr. Calderon on hospice for Friday open. He met with patient and already. [facility] , and spoke to Shruti in referral and updated her that patient is going home, and reminded her that she does have home oxygen, (they will use their supplier, [facility]), and get her a hospital bed. Faxed DC Summary to [facility] . Met again with patient and spouse and confirmed plan, and gave copy of IMM. P: Patient is discharging home today and will open to [facility] . Amee Newell RN/Wealth Management Consultant
[2022-03-02 11:31] VITALS: BP 160/87; PULSE 96; RESP 17; TEMP 36.6; O2SAT 85
--- NOTE | 2022-03-02 12:38 | PC.NURSE ---
pt needs extra O2 when she is moving around, O2 sat eventually goes up to 90% on 3L. she is sleepy, but she took 20mg of oxycodone for pain. explained to that he needs to bump up her O2 when she gets up of doing any ADLs. also not to over ventilate patient because she can retain. Gave instructions on how to prevent pressure injury.
[2022-03-12 09:48] LABS: Fractionated Inspired Oxygen 40; HCO3 ABG 37 mmol/L (22-26); Oxygen Saturation ABG 90 % (95-100); PO2 ABG 82 mmHg (80-100); TCO2 ABG 40 mmol/L (21-31)
[2022-03-13 18:54] LABS: PCO2 ABG 91.7 mmHg (35-45)
[2022-03-13 18:55] LABS: Oxygen Saturation ABG 79 % (95-100)
[2022-03-15 08:23] LABS: pH ABG 7.24 (7.35-7.45)
[2022-03-15 12:25] LABS: pH ABG 7.13 (7.35-7.45)
[2022-03-15 12:26] LABS: PCO2 ABG 110.7 mmHg (35-45)
== END 2022-03-02 12:25 | disposition hospice, home (50) | DRG 640 ==
LOC: ED 18:26 → ICU 02-26 03:03 → AC 02-27 12:52
PROVIDERS: Emergency Medicine; Family Medicine; Admitting Provider Family Medicine; Emergency Provider Emergency Medicine; PCP Student in an Organized Health Care Education/Training Program; Visit Provider Family Medicine
DX: E87.5 Hyperkalemia (principal); E43 Unspecified severe protein-calorie malnutrition; J96.21 Acute and chronic respiratory failure with hypoxia; J44.1 Chronic obstructive pulmonary disease with (acute) exacerbation; F10.239 Alcohol dependence with withdrawal, unspecified; Z68.1 Body mass index [BMI] 19.9 or less, adult; G93.49 Other encephalopathy; E87.6 Hypokalemia; E83.42 Hypomagnesemia; K52.832 Lymphocytic colitis; L89.102 Pressure ulcer of unspecified part of back, stage 2; G89.4 Chronic pain syndrome; E78.5 Hyperlipidemia, unspecified; F32.A Depression, unspecified; F41.9 Anxiety disorder, unspecified; I10 Essential (primary) hypertension; F17.210 Nicotine dependence, cigarettes, uncomplicated; Z99.81 Dependence on supplemental oxygen; Z66 Do not resuscitate; Z20.822 Contact with and (suspected) exposure to COVID-19
CPT/HCPCS: 36415; 36600; 71045; 80048; 80053; 81001; 82550; 82805; 83605; 83735; 83880; 84132; 84484; 85025; 85379; 85610; 87040; 87635; 87797; 93005; 93010; 94640; 94660; 94760; 94762; 96365; 96375; 96376; 97162; 99285; 99291; 99292; C9803; A9270; J0610; J1650; J1940; J2060; J7613